=== PATIENT | male | born 1970 ===

== ENCOUNTER 2016-10-16 12:58 | Inpatient (IN) | payer BC ==
[2016-10-16] MEDS ORDERED: Sodium Chloride 0.9% 1,000 ML IV STA (13:54)
--- NOTE | 2016-10-16 14:00 | CP.PCM.CON ---
History of Present Illness - History of Present Illness History of Present Illness: 46 y/o male with pmh of DM presents to the ED today w/ infection of right foot. Per patient he was sent to ED today after being seen by Dr. Page in the office. Pt was told he had an infection of the right great toe. Says he has had a problem w/ this toe x 1 month. Has been walking with regular sneakers. Denies n/v/c/sob/cp however does complain of some subjective fevers at night for the past few days. Says he had his right 2nd digit amputated in 2013 for a similar problem. Denies any other problems at this time. Review of Systems - Review of Systems Review of Systems: All systems reviewed and found to be negative except HPI findings above Past Patient History - Tetanus Immunizations Tetanus Immunization: Unknown - Past Medical History & Family History Past Medical History?: Yes - Past Social History Smoking Status: Former Smoker - CARDIAC Hx Cardiac Disorders: No - PULMONARY Hx Respiratory Disorders: No - NEUROLOGICAL Hx Neurological Disorder: No - RENAL Hx Chronic Kidney Disease: No - ENDOCRINE/METABOLIC Hx Diabetes Mellitus Type 2: Yes - MUSCULOSKELETAL/RHEUMATOLOGICAL Hx Falls: No - PSYCHIATRIC Hx Substance Use: No - SURGICAL HISTORY Hx Surgeries: No Meds Allergies/Adverse Reactions: Allergies Allergy/AdvReac Type Severity Reaction Status Date / Time No Known Allergies Allergy Verified 10/16/16 13:11 - Medications Medications: Current Medications Sodium Chloride (Sodium Chloride 0.9%) 1,000 mls @ 250 mls/hr IV .Q4H STA Stop: 10/16/16 17:53 Physical Exam - Constitutional Appears: Non-toxic, No Acute Distress - Extremities Exam Extremities exam: Negative for: calf tenderness Additional comments: RLE exam: Dressing to right foot appears c/d/i, capillary refill < 3 sec to digits 3-5 - Neurological Exam Neurological exam: Alert, CN II-XII Intact, Oriented x3 - Psychiatric Exam Psychiatric exam: Normal Affect, Normal Mood Results - Vital Signs Recent Vital Signs: Last Vital Signs Temp 97 F L 10/16/16 13:11 Pulse 74 10/16/16 13:11 Resp 18 10/16/16 13:11 BP 150/76 10/16/16 13:11 Pulse Ox 99 10/16/16 13:11 - Labs Result Diagrams: 10/16/16 14:40 10/16/16 14:40 Assessment & Plan - Assessment and Plan (Free Text) Assessment: 46 yo diabetic male patient seen in ED for diabetic foot infection right hallux Plan: -Pt S&E in ED -Plan discussed w/ Dr. Page -Chart, labs, vitals reviewed: afebrile, no leukocytosis -EKG, CXR ordered -Pt will require emergency right hallux amputation today 10/16 w/ Dr. Page (on add-on schedule) -Addressed all questions and concerns with patient -D/w family medicine team who will accept the admission -Will require medical clearance prior to OR today -NPO -Foot x-ray done in office -will follow
--- NOTE | 2016-10-16 14:19 | ED PDOC ---
Lower Extremity Pain/Injury Time Seen by Provider: 10/16/16 13:25 Chief Complaint (Nursing): Lower Extremity Problem/Injury Chief Complaint (Provider): Right great toe infection History Per: Patient, Family History/Exam Limitations: no limitations Onset/Duration Of Symptoms: Days Current Symptoms Are (Timing): Still Present Severity: Mild Additional Complaint(s): Pt was seen by Dr. Page today. Pt has infection of the right great toe. No fever/chills. Pt states it has been going on for awhile and he sees Dr. Page regularly. Pt states Dr. Page told him he needs emergency surgery for the toe and to not have the dressing removed. Pt denies other complaints. Pt states 2nd toe on the right was amputated a few years ago. Past Medical History Reviewed: Historical Data, Nursing Documentation, Vital Signs Vital Signs: Last Vital Signs Temp 97 F L 10/16/16 13:11 Pulse 74 10/16/16 13:11 Resp 18 10/16/16 13:11 BP 150/76 10/16/16 13:11 Pulse Ox 99 10/16/16 13:11 - Medical History PMH: Diabetes Denies: Chronic Kidney Disease - Surgical History Surgical History: No Surg Hx - Family History Family History: States: No Known Family Hx - Living Arrangements Living Arrangements: With Family - Social History Current smoker - smoking cessation education provided: No - Home Medications Home Medications: Ambulatory Orders Medication Instructions Recorded Cyanocobalamin [Vitamin B12 1000 1 tab PO DAILY 10/16/16 mcg Tab] Sitagliptin Phos/Metformin HCl 1 tab PO BID 10/16/16 [Janumet 50-1,000 mg Tablet] - Allergies Allergies/Adverse Reactions: Allergies Allergy/AdvReac Type Severity Reaction Status Date / Time No Known Allergies Allergy Verified 10/16/16 13:11 Review of Systems ROS Statement: Except As Marked, All Systems Reviewed And Found Negative Constitutional: Negative for: Fever, Chills Skin: Positive for: Other Physical Exam - Reviewed Nursing Documentation Reviewed: Yes Vital Signs Reviewed: Yes - Physical Exam Appears: Positive for: Well, Non-toxic, No Acute Distress Head Exam: Positive for: ATRAUMATIC, NORMAL INSPECTION, NORMOCEPHALIC Skin: Positive for: Normal Color, Warm, DRY Eye Exam: Positive for: Normal appearance ENT: Positive for: Normal ENT Inspection Neck: Positive for: Normal, Painless ROM Cardiovascular/Chest: Positive for: Regular Rate, Rhythm Respiratory: Positive for: CNT, Normal Breath Sounds Gastrointestinal/Abdominal: Positive for: Normal Exam, Bowel Sounds, Soft Back: Positive for: Normal Inspection Extremity: Positive for: Normal ROM, Other (Right great toe with dressing ) Neurologic/Psych: Positive for: Alert, Oriented - Laboratory Results Result Diagrams: 10/16/16 14:40 10/16/16 14:40 - ECG O2 Sat by Pulse Oximetry: 99 Pulse Ox Interpretation: Normal Disposition - Clinical Impression Clinical Impression: Diabetic foot infection - Patient ED Disposition Is Patient to be Admitted: Yes - Disposition Disposition Time: 15:48 Condition: STABLE - Pt Status Changed To: Hospital Disposition Of: Inpatient - Admit Certification Admit to Inpatient:: After my assessment, the patient will require hospitalization for at least two midnights. This is because of the severity of symptoms shown, intensity of services needed, and/or the medical risk in this patient being treated as an outpatient. - POA Present On Arrival: None
--- NOTE | 2016-10-16 14:40 | RAD ---
HISTORY: admission, surgery COMPARISON: Comparison is made to the previous study dated 03/29/2014 FINDINGS: LUNGS: No active pulmonary disease. PLEURA: No significant pleural effusion identified, no pneumothorax apparent. CARDIOVASCULAR: Normal. OSSEOUS STRUCTURES: No significant abnormalities. VISUALIZED UPPER ABDOMEN: Normal. OTHER FINDINGS: None. IMPRESSION: No active disease.
[2016-10-16 14:49] LABS: BASO % 0.6 % (0.0-2.0); EOS # 0.1 K/uL (0.0-0.7); EOS % 1.5 % (0.0-4.0); HEMATOCRIT 34.6 % (35.0-51.0); LYMPH # 0.9 K/uL (1.0-4.3); LYMPH % 18.2 % (20.0-40.0); MEAN CELL VOLUME 79.5 fl (80.0-94.0); MEAN CORPUSCULAR HEMOGLOBIN 26.2 pg (27.0-31.0); MEAN CORPUSCULAR HGB CONC 32.9 g/dL (33.0-37.0); MEAN PLATELET VOLUME 12.1 fl (7.2-11.7); MONO # 0.6 K/uL (0.0-0.8); MONO % 11.7 % (0.0-10.0); NEUT # 3.4 K/uL (1.8-7.0); RED CELL DISTRIBUTION WIDTH 14.2 % (11.5-14.5); WHITE BLOOD COUNT 4.9 K/uL (4.8-10.8)
[2016-10-16 14:59] LABS: ALB/GLOB RATIO 1.1 (1.0-2.1); BLOOD UREA NITROGEN 15 mg/dl (9-20); CALCIUM 9.8 mg/dL (8.4-10.2); CARBON DIOXIDE 28 mmol/L (22-30); CHLORIDE 102 mmol/L (98-107); GFR AFRICAN-AMERICAN > 60; GLUCOSE,RANDOM 203 mg/dL (75-110); POTASSIUM 4.2 MMOL/L (3.6-5.0); SODIUM 144 mmol/l (132-148); TOTAL PROTEIN 6.9 G/DL (6.3-8.2)
[2016-10-16] MEDS ORDERED: Glucagon Recombinant 1 mg Inj IM PRN (14:59)
[2016-10-16] MEDS ORDERED: Dextrose 50% SYRINGE Inj (50 ml) IV PRN (14:59)
--- NOTE | 2016-10-16 14:59 | CP.PCM.HP ---
History of Present Illness - History of Present Illness History of Present Illness: 46 y/o male with a PMHx remarkable for NIDDM2 controlled with Elvis- presented to the ED today complaining of right toe pain. He reports he hit his toe against a chair 1 month ago. Originally he felt pain, but denied any trauma to the area. The pain and edema gradually progressed over the course of the month and the pt ignored it. It has now broken up with an area of ulceration on the medial aspect of his right 1st digit. He reports there is a pulsating like pain upon ambulation but it is relieved at rest. No other complaints. Denies fever/chills, headaches, changes in vision, CP/SOB/Palpitations, N/V/D/C, urinary symptoms, numbness/tingling. ROS: reviewed 12 points, found to be negative PMD: Dr. Castro ([employer] [place], [place]) PMHx: NIDDM2 (controlled), last HbA1C was 7.0% last week as per pt Meds: Elvis- ALL: NKDA PsurgHx: right foot 2nd digit amputation PHospHx: only for right 2nd digit amputation SocialHx: denies ETOH/Tobacco/Drug use FamilyHx: mother passed at age 80 due to [place], sibling with uncontrolled DM ED Course: Vitals: T: 97.0F, BP: 150/76, HR: 74, RR: 18, O2: 99% on RA CBC: wnl CMP: glucose 203, Cr: 1.0, otherwise unremarkable EKG CXR: no active disease Admitted to Med/Surg Present on Admission - Present on Admission Any Indicators Present on Admission: No Review of Systems - Review of Systems All systems: reviewed and no additional remarkable complaints except (as per HPI ) Past Patient History - Tetanus Immunizations Tetanus Immunization: Unknown - Past Medical History & Family History Past Medical History?: Yes - Past Social History Smoking Status: Former Smoker Alcohol: None Drugs: Denies Home Situation {Lives}: With Family - CARDIAC Hx Cardiac Disorders: No - PULMONARY Hx Respiratory Disorders: No - NEUROLOGICAL Hx Neurological Disorder: No - RENAL Hx Chronic Kidney Disease: No - ENDOCRINE/METABOLIC Hx Diabetes Mellitus Type 2: Yes - MUSCULOSKELETAL/RHEUMATOLOGICAL Hx Falls: No - PSYCHIATRIC Hx Substance Use: No - SURGICAL HISTORY Hx Surgeries: No Meds Allergies/Adverse Reactions: Allergies Allergy/AdvReac Type Severity Reaction Status Date / Time No Known Allergies Allergy Verified 10/16/16 13:11 Physical Exam - Constitutional Appears: Well, Non-toxic, No Acute Distress - Head Exam Head Exam: ATRAUMATIC, NORMOCEPHALIC - Eye Exam Eye Exam: EOMI. absent: Conjunctival injection, Periorbital swelling, Scleral icterus Pupil Exam: Fixed - ENT Exam ENT Exam: Mucous Membranes Moist - Neck Exam Neck exam: Positive for: Full Rom, Normal Inspection. Negative for: Lymphadenopathy, Tenderness - Respiratory Exam Respiratory Exam: Clear to Auscultation Bilateral, NORMAL BREATHING PATTERN. absent: Accessory Muscle Use, Rales, Rhonchi, Wheezes, Respiratory Distress - Cardiovascular Exam Cardiovascular Exam: REGULAR RHYTHM, RRR, +S1, +S2. absent: Bradycardia, Tachycardia, JVD, Rubs, Systolic Murmur - GI/Abdominal Exam GI & Abdominal Exam: Normal Bowel Sounds, Soft. absent: Tenderness - Extremities Exam Extremities exam: Positive for: full ROM, normal inspection, pedal edema (right LE nonpitting pedal edema secondary to trauma/infection of right 1st digit), pedal pulses present (1+ right DP (secondary to edema), 2+ left DP). Negative for: calf tenderness, tenderness - Neurological Exam Neurological exam: Alert, CN II-XII Intact, Oriented x3 - Psychiatric Exam Psychiatric exam: Normal Affect, Normal Mood - Skin Skin Exam: Dry, Intact, Normal Color, Warm Results - Vital Signs Recent Vital Signs: Last Vital Signs Temp 97 F L 10/16/16 13:11 Pulse 74 10/16/16 13:11 Resp 18 10/16/16 13:11 BP 150/76 10/16/16 13:11 Pulse Ox 99 10/16/16 14:20 - Labs Result Diagrams: 10/16/16 14:40 10/16/16 14:40 Labs: Laboratory Results - last 24 hr 10/16/16 14:40 WBC 4.9 RBC 4.35 L Hgb 11.4 L Hct 34.6 L MCV 79.5 L MCH 26.2 L MCHC 32.9 L RDW 14.2 Plt Count 124 L MPV 12.1 H Neut % (Auto) 68.0 Lymph % (Auto) 18.2 L [place] % (Auto) 11.7 H Eos % (Auto) 1.5 Baso % (Auto) 0.6 Neut # 3.4 Lymph # 0.9 L [place] # 0.6 Eos # 0.1 Baso # 0.0 Assessment & Plan (1) Diabetic infection of right foot Assessment and Plan: -podiatry consulted -for OR today for right great toe amputation -EKG: NSR, 64 BPM, no Q-waves, no ST elevations, possible left atrial enlargement, LVH -CXR: no active disease -CBC: 4.9>11.4/34.6<124 -CMP: Cr: 1.0, BS: 203, otherwise WNL -PT/INR/APTT: 11.2/1.08/30.9 respectively -medically optimized for surgery today Status: Acute (2) Non-insulin dependent type 2 diabetes mellitus Assessment and Plan: -last HbA1C: 7.0% as per pt -accuchecks -continue Januvia 50 BID -Insulin Coverage scale, low dose. Status: Chronic (3) Essential (primary) hypertension Assessment and Plan: -possible Hx of essential HTN as per Pharmacy. Reports pt was supposed to fill script for Losartan but never did. -will monitor BPs and intervene accordingly Status: Chronic (4) DVT prophylaxis Assessment and Plan: SCDs Status: Acute
[2016-10-16 15:00] LABS: ALKALINE PHOSPHATASE 131 U/L (38-126); ALT/SGPT 24 U/L (21-72); AST/SGOT 17 U/L (17-59); BILIRUBIN,TOTAL 0.7 mg/dl (0.2-1.3)
[2016-10-16 15:34] LABS: PARTIAL THROMBOPLASTIN TIME 30.9 SECONDS (23.3-32.5)
[2016-10-16] MEDS ORDERED: Bupivacaine 0.5% Inj(30mL) ONE (17:42)
[2016-10-16] MEDS ORDERED: Lidocaine 1% Inj (20ml) ONE ×2 (17:42→18:30)
[2016-10-16] MEDS ORDERED: Midazolam 2 MG/2 ML VIAL ONE (18:02)
[2016-10-16] MEDS ORDERED: Pneumococcal 23-Valent Vaccine IM ONE (18:33)
[2016-10-16] MEDS: Insulin Regular 100 units/ml SC SCH ×2 (18:36→21:57)
[2016-10-16] MEDS: Piperacillin/Tazobact 3.375 GM in Sodium Chloride 0.9% 100 ML IVPB SCH ×2 (18:37→23:50)
[2016-10-16] MEDS: Sodium Chloride 0.9% 1,000 ML IV SCH (18:38)
[2016-10-16] MEDS ORDERED: Absorbable Gelatin Sponge Size 12-7 ONE (18:44)
[2016-10-16] MEDS ORDERED: Thrombin Topical 5,000 IU Spray Kit ONE (18:44)
[2016-10-16] MEDS ORDERED: Lactated Ringer's 1,000 ML IV ONE (18:55)
[2016-10-16] MEDS ORDERED: HEMOSTATIC MATRIX 10 ML DIS.NEEDLE TOP ONE (19:09)
--- NOTE | 2016-10-16 19:31 | PCM.SURG1 ---
Surgeon's Initial Post Op Note - Surgeon's Notes Surgeon: Dr. Page [employer] Supervisor: Dr. Rema Cisneros, Dr. 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
[2016-10-16] MEDS ORDERED: Oxycodone/Acetaminophen 5/325 mg Tab PO PRN (19:34)
[2016-10-16 20:14] LABS: HEMATOCRIT 29.7 % (35.0-51.0)
[2016-10-17] MEDS: Oxycodone/Acetaminophen 5/325 mg Tab PO PRN ×3 (01:28→23:16)
[2016-10-17] MEDS: Piperacillin/Tazobact 3.375 GM in Sodium Chloride 0.9% 100 ML IVPB SCH ×4 (05:09→23:26)
[2016-10-17] MEDS: Insulin Regular 100 units/ml SC SCH ×4 (06:49→21:43)
--- NOTE | 2016-10-17 06:49 | CP.PCM.PN ---
Subjective - Date & Time of Evaluation Date of Evaluation: 10/17/16 Time of Evaluation: 06:45 - Subjective Subjective: 46 y/o male with pmh of DM POD #1 right hallux amputation w/ partial metatarsal resection. Both patient and nursing deny any acute events overnight. Pt admits to a small amount of pain to the foot, denies numbness or tingling. Denies f/n/v /c/sob/cp. Denies any other problems. Reports eating well. Denies putting any weight to the foot since surgery. Objective - Vital Signs/Intake and Output Vital Signs (last 24 hours): Temp Pulse Resp BP Pulse Ox 98.4 F 66 20 131/78 98 10/17/16 05:00 10/17/16 05:00 10/17/16 05:00 10/17/16 05:00 10/17/16 05:00 Intake and Output: 10/16/16 10/17/16 18:59 06:59 Intake Total 800 100 Balance 800 100 - Medications Medications: Current Medications Acetaminophen (Tylenol 325mg Tab) 650 mg PO Q4 PRN PRN Reason: Pain, Mild (1-3) Cyanocobalamin (Vitamin B12 1000 Mcg Tab) 1,000 mcg PO DAILY [facility] Dextrose (Dextrose 50% Inj) 0 ml IV STAT PRN; Protocol PRN Reason: Hyglycemia Protocol Dextrose (Glutose 15) 0 gm PO ONCE PRN; Protocol PRN Reason: Hypoglycemia Protocol Glucagon (Glucagen Diagnostic Kit) 0 mg IM STAT PRN; Protocol PRN Reason: Hypoglycemia Protocol Vancomycin HCl 1 gm/ Sodium (Chloride) 250 mls @ 166.667 mls/hr IVPB Q12 [facility] Last Admin: 10/16/16 21:52 Dose: 166.667 mls/hr Piperacillin Sod/Tazobactam (Sod 3.375 gm/ Sodium Chloride) 100 mls @ 100 mls/ hr IVPB Q6 [facility] Last Admin: 10/17/16 05:09 Dose: 100 mls/hr Sodium Chloride (Sodium Chloride 0.9%) 1,000 mls @ 120 mls/hr IV .Q8H20M [facility] Stop: 10/17/16 17:03 Last Admin: 10/16/16 18:38 Dose: Not Given Insulin Human Regular (Humulin R) 0 units SC ACHS JELENA PRN Reason: Protocol Last Admin: 10/17/16 06:49 Dose: Not Given Oxycodone/Acetaminophen (Percocet 5/325 Mg Tab) 1 tab PO Q4 PRN PRN Reason: Pain, moderate (4-7) Stop: 10/19/16 19:35 Oxycodone/Acetaminophen (Percocet 5/325 Mg Tab) 2 tab PO Q4 PRN PRN Reason: Pain, severe (8-10) Stop: 10/19/16 19:35 Last Admin: 10/17/16 05:52 Dose: 2 tab Pneumococcal Polyvalent Vaccine (Pneumovax 23 Vaccine) 0.5 ml IM .ONCE ONE Stop: 10/17/16 09:01 Sitagliptin Phosphate (Januvia) 50 mg PO BID JELENA - Labs Labs: 10/16/16 19:47 PT 11.2 SECONDS (9.6-11.2) 10/16/16 14:40 INR 1.08 (0.92-1.08) 10/16/16 14:40 APTT 30.9 SECONDS (23.3-32.5) 10/16/16 14:40 - Constitutional Appears: Well, Non-toxic, No Acute Distress - Extremities Exam Extremities Exam: absent: Calf Tenderness Additional comments: Dressing to right foot appears c/d/i w/ no strikethrough seen - Neurological Exam Neurological Exam: Alert, Awake, Oriented x3 - Psychiatric Exam Psychiatric exam: Normal Affect, Normal Mood Assessment and Plan - Assessment and Plan (Free Text) Assessment: 46 yo diabetic male pt POD #1 right hallux and partial metatarsal resection. Plan: -Pt S&E at bedside -Plan discussed w/ attending Dr. Page -All questions and concerns addressed with patient -Chart, labs, vitals reviewed: afebrile, wbc 4.2 today, H/H 9.3/27.0 -ESR 78 -Dressing to be left intact to right foot -NWB for now -Awaiting PT eval -SCD's for now -IV abx (vanc and zosyn) per family medicine team -Stable per podiatry -Awaiting pathology bone culture -Awaiting intra-op wound culture -Will continue to follow
[2016-10-17 06:51] LABS: BASO % 0.6 % (0.0-2.0); EOS # 0.1 K/uL (0.0-0.7); EOS % 2.9 % (0.0-4.0); LYMPH % 24.1 % (20.0-40.0); MEAN CELL VOLUME 78.2 fl (80.0-94.0); MEAN CORPUSCULAR HEMOGLOBIN 26.9 pg (27.0-31.0); MEAN CORPUSCULAR HGB CONC 34.3 g/dL (33.0-37.0); MONO # 0.4 K/uL (0.0-0.8); MONO % 10.5 % (0.0-10.0); NEUT # 2.6 K/uL (1.8-7.0); NEUT % 61.9 % (50.0-75.0); NRBC % 0.1 % (0.0-0.0); RED CELL DISTRIBUTION WIDTH 13.6 % (11.5-14.5); WHITE BLOOD COUNT 4.2 K/uL (4.8-10.8)
[2016-10-17 06:59] LABS: BLOOD UREA NITROGEN 16 mg/dl (9-20); CARBON DIOXIDE 28 mmol/L (22-30); CHLORIDE 104 mmol/L (98-107); GFR AFRICAN-AMERICAN > 60; GLUCOSE,RANDOM 132 mg/dL (75-110); POTASSIUM 4.5 MMOL/L (3.6-5.0); SODIUM 142 mmol/l (132-148)
--- NOTE | 2016-10-17 08:08 | CP.PCM.PN ---
Subjective - Date & Time of Evaluation Date of Evaluation: 10/17/16 Time of Evaluation: 08:08 - Subjective Subjective: pt seen and examined at bedside. No acute events overnight. S/P right hallux amputation POD#1. Tolerated procedure well without any complications. Reports right foot pain that is controlled with medications. Reports sleeping well overnight. Tolerating incentive spirometry. No new medical complaints. Denies fever/chills, headaches, visual disturbances, CP/SOB/palpitations, N/V/D/C, numbness/tingling. Objective - Vital Signs/Intake and Output Vital Signs (last 24 hours): Temp Pulse Resp BP Pulse Ox 98.4 F 63 20 123/74 98 10/17/16 08:02 10/17/16 08:02 10/17/16 08:02 10/17/16 08:02 10/17/16 08:02 Intake and Output: 10/17/16 10/17/16 06:59 18:59 Intake Total 100 Balance 100 - Medications Medications: Current Medications Acetaminophen (Tylenol 325mg Tab) 650 mg PO Q4 PRN PRN Reason: Pain, Mild (1-3) Cyanocobalamin (Vitamin B12 1000 Mcg Tab) 1,000 mcg PO DAILY [facility] Dextrose (Dextrose 50% Inj) 0 ml IV STAT PRN; Protocol PRN Reason: Hyglycemia Protocol Dextrose (Glutose 15) 0 gm PO ONCE PRN; Protocol PRN Reason: Hypoglycemia Protocol Glucagon (Glucagen Diagnostic Kit) 0 mg IM STAT PRN; Protocol PRN Reason: Hypoglycemia Protocol Vancomycin HCl 1 gm/ Sodium (Chloride) 250 mls @ 166.667 mls/hr IVPB Q12 [facility] Last Admin: 10/16/16 21:52 Dose: 166.667 mls/hr Piperacillin Sod/Tazobactam (Sod 3.375 gm/ Sodium Chloride) 100 mls @ 100 mls/ hr IVPB Q6 [facility] Last Admin: 10/17/16 05:09 Dose: 100 mls/hr Sodium Chloride (Sodium Chloride 0.9%) 1,000 mls @ 120 mls/hr IV .Q8H20M [facility] Stop: 10/17/16 17:03 Last Admin: 10/16/16 18:38 Dose: Not Given Insulin Human Regular (Humulin R) 0 units SC ACHS JELENA PRN Reason: Protocol Last Admin: 10/17/16 06:49 Dose: Not Given Oxycodone/Acetaminophen (Percocet 5/325 Mg Tab) 1 tab PO Q4 PRN PRN Reason: Pain, moderate (4-7) Stop: 10/19/16 19:35 Oxycodone/Acetaminophen (Percocet 5/325 Mg Tab) 2 tab PO Q4 PRN PRN Reason: Pain, severe (8-10) Stop: 10/19/16 19:35 Last Admin: 10/17/16 05:52 Dose: 2 tab Pneumococcal Polyvalent Vaccine (Pneumovax 23 Vaccine) 0.5 ml IM .ONCE ONE Stop: 10/17/16 09:01 Sitagliptin Phosphate (Januvia) 50 mg PO BID JELENA - Labs Labs: 10/17/16 05:45 10/17/16 05:45 PT 11.2 SECONDS (9.6-11.2) 10/16/16 14:40 INR 1.08 (0.92-1.08) 10/16/16 14:40 APTT 30.9 SECONDS (23.3-32.5) 10/16/16 14:40 - Constitutional Appears: Well, Non-toxic, No Acute Distress - Eye Exam Eye Exam: EOMI Pupil Exam: PERRL - ENT Exam ENT Exam: Mucous Membranes Moist - Respiratory Exam Respiratory Exam: Clear to Ausculation Bilateral, NORMAL BREATHING PATTERN. absent: Rales, Rhonchi, Wheezes - Cardiovascular Exam Cardiovascular Exam: REGULAR RHYTHM, RRR, +S1, +S2. absent: Tachycardia, JVD, Rubs, Murmur - GI/Abdominal Exam GI & Abdominal Exam: Soft, Normal Bowel Sounds. absent: Tenderness - Extremities Exam Extremities Exam: Joint Swelling (right foot edema s/p surgery). absent: Calf Tenderness, Normal Inspection (right foot wrapped and bandaged) - Neurological Exam Neurological Exam: Alert, Awake, CN II-XII Intact, Oriented x3 - Psychiatric Exam Psychiatric exam: Normal Affect, Normal Mood - Skin Skin Exam: Dry, Intact, Normal Color, Warm Assessment and Plan (1) Diabetic infection of right foot Assessment & Plan: Right foot hallux amputation with 1st metatarsal resection POD #1 Vancomycin IV 1gm Q12 Abx day 2 Zosyn 3.375gm IV Q6 Abx day 2 Percocet 1-2 tabs Q4 PRN Tylenol 650mg Wound Culture: pending ESR: 78 ID Consult appreciated PT Eval/Tx Vanco Trough Tomorrow AM Status: Acute (2) Non-insulin dependent type 2 diabetes mellitus Assessment & Plan: -last HbA1C: 7.0% as per pt -accuchecks -continue Januvia 50 BID -Insulin Coverage scale, low dose. Status: Chronic (3) Essential (primary) hypertension Assessment & Plan: continue monitoring BPs, will intervene accordingly. Status: Chronic (4) DVT prophylaxis Assessment & Plan: SCDs Lovenox 40mg SC QD Status: Acute
--- NOTE | 2016-10-17 08:47 | CARD ---
APPROVED REPORT EKG Measurement Heart [id number] CT [id number] <Conclusion> Normal sinus rhythm Possible Left atrial enlargement Left ventricular hypertrophy Nonspecific T wave abnormality Abnormal ECG
[2016-10-17] MEDS ORDERED: Pneumococcal 23-Valent Vaccine IM ONE (09:00)
--- NOTE | 2016-10-17 12:23 | RAD ---
PROCEDURE: Right Foot Radiographs. HISTORY: s/p right foot surgery COMPARISON: Disease preoperative study 03/29/2014. FINDINGS: BONES: Expected postoperative changes following resection of the 1st metatarsal digit and 2nd digit. Surgical packing/gauze identified. JOINTS: Normal. SOFT TISSUES: Expected postoperative soft tissue swelling. No visualized/radiopaque foreign body OTHER FINDINGS: None. IMPRESSION: Satisfactory postoperative status.
[2016-10-17 13:09] VITALS: BMI 27.3
[2016-10-17] MEDS: Enoxaparin 40 mg Syringe SC SCH (14:47)
[2016-10-17] MEDS: Sodium Chloride 0.9% 1,000 ML IV SCH ×2 (15:45→15:46)
--- NOTE | 2016-10-17 19:06 | CP.PCM.CON ---
History of Present Illness - History of Present Illness History of Present Illness: 46 y/o male presented to the ED today complaining of right toe pain. He reports he hit his toe against a chair 1 month ago. went for hallux amp today ID [id number] hx prev amp same foot r/o OM ROS: reviewed 12 points, found to be negative PMHx: NIDDM2 (controlled), last HbA1C was 7.0% last wk Meds: Elvis-met ALL: NKDA PsurgHx: right foot 2nd digit amputation PHospHx: only for right 2nd digit amputation SocialHx: denies ETOH/Tobacco/Drug use FamilyHx: mother passed at age 80 due to [place], sibling with uncontrolled DM Review of Systems - Constitutional Constitutional: As Per HPI - EENT Eyes: absent: As Per HPI, Blind Spots, Blurred Vision, Change in Vision, Decreased Night Vision, Diplopia, Discharge, Dry Eye, Exophthalmos, Floaters, Irritation, Itchy Eyes, Loss of Peripheral Vision, Pain, Photophobia, Requires Corrective Lenses, Sees Flashes, Spots in Vision, Tunnel Vision, Other Visual Disturbances, Loss of Vision, Other Ears: absent: As Per HPI, Decreased Hearing, Ear Discharge, Ear Pain, Tinnitus, Abnormal Hearing, Disequilibrium, Dizziness, Other Nose/Mouth/Throat: absent: As Per HPI, Epistaxis, Nasal Congestion, Nasal Discharge, Nasal Obstruction, Nasal Trauma, Nose Pain, Post Nasal Drip, Sinus Pain, Sinus Pressure, Bleeding Gums, Change in Voice, Dental Pain, Dry Mouth, Dysphagia, Halitosis, Hoarsness, Lip Swelling, Mouth Lesions, Mouth Pain, Odynophagia, Sore Throat, Throat Swelling, Tongue Swelling, Facial Pain, Neck Pain, Neck Mass, Other - Cardiovascular Cardiovascular: absent: As Per HPI, Acrocyanosis, Chest Pain, Chest Pain at Rest , Chest Pain with Activity, Claudication, Diaphoresis, Dyspnea, Dyspnea on Exertion, Edema, Irregular Heart Rhythm, Pain Radiating to Arm/Neck/Jaw, Leg Edema, Leg Ulcers, Lightheadedness, Orthopnea, Palpitations, Paroxysmal Nocturnal Dyspnea, Pedal Edema, Radiating Pain, Rapid Heart Rate, Slow Heart Rate, Syncope, Other - Respiratory Respiratory: absent: As Per HPI, Cough, Dyspnea, Hemoptysis, Dyspnea on Exertion , Wheezing, Snoring, Stridor, Pain on Inspiration, Chest Congestion, Excessive Mucous Production, Change in Mucous Color, Pain with Coughing, Other - Gastrointestinal Gastrointestinal: absent: As Per HPI, Abdominal Pain, Belching, Bloating, Change in Bowel Habits, Change in Stool Character, Coffee Ground Emesis, Constipation, Cramping, Diarrhea, Dyspepsia, Dysphagia, Early Satiety, Excessive Flatus, Fecal Incontinence, Heartburn, Hematemesis, Hematochezia, Loose Stools, Melena, Nausea, Odynophagia, Temesmus, Vomiting, Other - Genitourinary Genitourinary: absent: As Per HPI, Change in Urinary Stream, Difficulty Urinating, Dysuria, Flank Pain, Hematuria, Pyuria, Nocturia, Urinary Incontinence, Urinary Frequency, Urinary Hesitance, Urinary Urgency, Voiding Freq/Small Amts, Freq UTI, Hx Renal/Bladder Calculi, Hx /Renal Surgery, Bladder Distension, Other - Musculoskeletal Musculoskeletal: absent: As Per HPI, Abnormal Gait, Arthralgias, Atrophy, Back Pain, Deformity, Joint Swelling, Limited Range of Motion, Loss of Height, Muscle Cramps, Muscle Weakness, Myalgias, Neck Pain, Numbness, Radiating Pain into Limb, Stiffness, Tingling, Other - Integumentary Integumentary: As Per HPI, Skin Pain, Wounds - Neurological Neurological: As Per HPI - Psychiatric Psychiatric: absent: As Per HPI, Abnormal Sleep Pattern, Anhedonia, Anxiety, Auditory Hallucinations, Behavioral Changes, Change in Appetite, Change in Libido, Confusion, Depression, Difficulty Concentrating, Hallucinations, Homicidal Ideation, Hopelessness, Irritability, Memory Loss, Mood Swings, Panic Attacks, Paranoia, Suicidal Ideation, Visual Hallucinations, Tactile Hallucinations, Other - Endocrine Endocrine: absent: As Per HPI, Change in Body Appearance, Change in Libido, Cold Intolorance, Deepening of Voice, Excessive Sweating, Fatigue, Flushing, Heat Intolorance, Increase in Ring/Shoe/Hat Size, Palpitations, Polydipsia, Polyphagia, Polyuria, Other - Hematologic/Lymphatic Hematologic: absent: As Per HPI, Easy Bleeding, Easy Bruising, Lymphadenopathy, Other Past Patient History - Tetanus Immunizations Tetanus Immunization: Unknown - Past Medical History & Family History Past Medical History?: Yes - Past Social History Smoking Status: Never Smoked - CARDIAC Hx Cardiac Disorders: No - PULMONARY Hx Respiratory Disorders: No - NEUROLOGICAL Hx Neurological Disorder: No - RENAL Hx Chronic Kidney Disease: No - ENDOCRINE/METABOLIC Hx Diabetes Mellitus Type 2: Yes - MUSCULOSKELETAL/RHEUMATOLOGICAL Hx Falls: No - PSYCHIATRIC Hx Substance Use: No - SURGICAL HISTORY Hx Surgeries: No Meds Allergies/Adverse Reactions: Allergies Allergy/AdvReac Type Severity Reaction Status Date / Time No Known Allergies Allergy Verified 10/16/16 13:11 - Medications Medications: Current Medications Acetaminophen (Tylenol 325mg Tab) 650 mg PO Q4 PRN PRN Reason: Pain, Mild (1-3) Cyanocobalamin (Vitamin B12 1000 Mcg Tab) 1,000 mcg PO DAILY [facility] Last Admin: 10/17/16 09:17 Dose: 1,000 mcg Dextrose (Dextrose 50% Inj) 0 ml IV STAT PRN; Protocol PRN Reason: Hyglycemia Protocol Dextrose (Glutose 15) 0 gm PO ONCE PRN; Protocol PRN Reason: Hypoglycemia Protocol Enoxaparin Sodium (Lovenox) 40 mg SC DAILY [facility] PRN Reason: Protocol Last Admin: 10/17/16 14:47 Dose: 40 mg Glucagon (Glucagen Diagnostic Kit) 0 mg IM STAT PRN; Protocol PRN Reason: Hypoglycemia Protocol Vancomycin HCl 1 gm/ Sodium (Chloride) 250 mls @ 166.667 mls/hr IVPB Q12 [facility] Last Admin: 10/17/16 09:49 Dose: 166.667 mls/hr Piperacillin Sod/Tazobactam (Sod 3.375 gm/ Sodium Chloride) 100 mls @ 100 mls/ hr IVPB Q6 [facility] Last Admin: 10/17/16 15:44 Dose: 100 mls/hr Insulin Human Regular (Humulin R) 0 units SC ACHS [facility] PRN Reason: Protocol Last Admin: 10/17/16 17:26 Dose: 3 unit Oxycodone/Acetaminophen (Percocet 5/325 Mg Tab) 1 tab PO Q4 PRN PRN Reason: Pain, moderate (4-7) Stop: 10/19/16 19:35 Oxycodone/Acetaminophen (Percocet 5/325 Mg Tab) 2 tab PO Q4 PRN PRN Reason: Pain, severe (8-10) Stop: 10/19/16 19:35 Last Admin: 10/17/16 05:52 Dose: 2 tab Sitagliptin Phosphate (Januvia) 50 mg PO BID [facility] Last Admin: 10/17/16 17:26 Dose: 50 mg Physical Exam - Constitutional Appears: Non-toxic, Chronically Ill - Head Exam Head Exam: NORMOCEPHALIC - Eye Exam Eye Exam: PERRL. absent: Scleral icterus - ENT Exam ENT Exam: Mucous Membranes Dry, Normal External Ear Exam - Neck Exam Neck exam: Negative for: Lymphadenopathy - Respiratory Exam Respiratory Exam: Decreased Breath Sounds, Clear to Auscultation Bilateral - Cardiovascular Exam Cardiovascular Exam: REGULAR RHYTHM, +S1, +S2 - GI/Abdominal Exam GI & Abdominal Exam: Diminished Bowel Sounds, Soft. absent: Tenderness - Rectal Exam Rectal Exam: Deferred - Exam Exam: NORMAL INSPECTION - Extremities Exam Extremities exam: Positive for: pedal edema, tenderness, pedal pulses present. Negative for: calf tenderness, normal inspection - Back Exam Back exam: absent: CVA tenderness (L), CVA tenderness (R) - Neurological Exam Neurological exam: Alert, CN II-XII Intact, Oriented x3, Reflexes Normal - Psychiatric Exam Psychiatric exam: Normal Mood - Skin Skin Exam: Dry Results - Vital Signs Recent Vital Signs: Last Vital Signs Temp 98 F 10/17/16 16:42 Pulse 80 10/17/16 16:42 Resp 18 10/17/16 16:42 BP 157/75 H 10/17/16 16:42 Pulse Ox 100 10/17/16 16:42 - Labs Result Diagrams: 10/17/16 05:45 10/17/16 05:45 Labs: Laboratory Results - last 24 hr 10/16/16 10/16/16 10/16/16 15:25 17:52 19:16 WBC RBC Hgb Hct MCV MCH MCHC RDW Plt Count MPV Neut % (Auto) Lymph % (Auto) [place] % (Auto) Eos % (Auto) Baso % (Auto) Neut # Lymph # [place] # Eos # Baso # ESR 78 H Sodium Potassium Chloride Carbon Dioxide Anion Gap BUN Creatinine Est GFR ( Amer) Est GFR (Non-Af Amer) POC Glucose (mg/dL) 180 H 117 H Random Glucose Calcium 10/16/16 10/16/16 10/17/16 19:47 21:50 05:45 WBC 4.2 L RBC 3.45 L Hgb 9.8 L 9.3 L Hct 29.7 L 27.0 L MCV 78.2 L MCH 26.9 L MCHC 34.3 RDW 13.6 Plt Count 113 L MPV 12.0 H Neut % (Auto) 61.9 Lymph % (Auto) 24.1 [place] % (Auto) 10.5 H Eos % (Auto) 2.9 Baso % (Auto) 0.6 Neut # 2.6 Lymph # 1.0 [place] # 0.4 Eos # 0.1 Baso # 0.0 ESR Sodium Potassium Chloride Carbon Dioxide Anion Gap BUN Creatinine Est GFR ( Amer) Est GFR (Non-Af Amer) POC Glucose (mg/dL) 115 H Random Glucose Calcium 10/17/16 10/17/16 10/17/16 05:45 05:45 10:52 WBC RBC Hgb Hct MCV MCH MCHC RDW Plt Count MPV Neut % (Auto) Lymph % (Auto) [place] % (Auto) Eos % (Auto) Baso % (Auto) Neut # Lymph # [place] # Eos # Baso # ESR Sodium 142 Potassium 4.5 Chloride 104 Carbon Dioxide 28 Anion Gap 14 BUN 16 Creatinine 1.3 Est GFR ( Amer) > 60 Est GFR (Non-Af Amer) 59 POC Glucose (mg/dL) 144 H 165 H Random Glucose 132 H Calcium 9.0 10/17/16 15:27 WBC RBC Hgb Hct MCV MCH MCHC RDW Plt Count MPV Neut % (Auto) Lymph % (Auto) [place] % (Auto) Eos % (Auto) Baso % (Auto) Neut # Lymph # [place] # Eos # Baso # ESR Sodium Potassium Chloride Carbon Dioxide Anion Gap BUN Creatinine Est GFR ( Amer) Est GFR (Non-Af Amer) POC Glucose (mg/dL) 288 H Random Glucose Calcium Assessment & Plan (1) Diabetic foot infection Status: Acute (2) Amputated toe Status: Acute Priority: Medium (3) Osteomyelitis of foot Status: Acute (4) Type 2 diabetes mellitus Status: Chronic Priority: Medium - Assessment and Plan (Free Text) Plan: recuurent right foot infection hx OM 2013 with amp 2nd digit consider MRI possible long course IV rx await OR cultures
[2016-10-18] MEDS: Piperacillin/Tazobact 3.375 GM in Sodium Chloride 0.9% 100 ML IVPB SCH ×4 (04:03→21:38)
[2016-10-18] MEDS: Oxycodone/Acetaminophen 5/325 mg Tab PO PRN (04:03)
--- NOTE | 2016-10-18 06:13 | CP.PCM.PN ---
Subjective - Date & Time of Evaluation Date of Evaluation: 10/18/16 Time of Evaluation: 09:20 - Subjective Subjective: 46 y/o male with pmh of DM POD #2 right hallux amputation w/ partial metatarsal resection. Pt seen resting comfortably in bedside chair at time of visit. Denies any pain or discomfort to the foot at this time. Denies f/n/v/c/sob/cp. Says he has been ambulating with the surgical shoe to the heel only. Denies any other problems at this time. Objective - Vital Signs/Intake and Output Vital Signs (last 24 hours): Temp Pulse Resp BP Pulse Ox 98.8 F 69 18 127/67 99 10/17/16 21:14 10/17/16 21:14 10/17/16 21:14 10/17/16 21:14 10/17/16 21:14 - Medications Medications: Current Medications Acetaminophen (Tylenol 325mg Tab) 650 mg PO Q4 PRN PRN Reason: Pain, Mild (1-3) Cyanocobalamin (Vitamin B12 1000 Mcg Tab) 1,000 mcg PO DAILY [facility] Last Admin: 10/17/16 09:17 Dose: 1,000 mcg Dextrose (Dextrose 50% Inj) 0 ml IV STAT PRN; Protocol PRN Reason: Hyglycemia Protocol Dextrose (Glutose 15) 0 gm PO ONCE PRN; Protocol PRN Reason: Hypoglycemia Protocol Enoxaparin Sodium (Lovenox) 40 mg SC DAILY [facility] PRN Reason: Protocol Last Admin: 10/17/16 14:47 Dose: 40 mg Glucagon (Glucagen Diagnostic Kit) 0 mg IM STAT PRN; Protocol PRN Reason: Hypoglycemia Protocol Vancomycin HCl 1 gm/ Sodium (Chloride) 250 mls @ 166.667 mls/hr IVPB Q12 [facility] Last Admin: 10/17/16 21:46 Dose: 166.667 mls/hr Piperacillin Sod/Tazobactam (Sod 3.375 gm/ Sodium Chloride) 100 mls @ 100 mls/ hr IVPB Q6 [facility] Last Admin: 10/18/16 04:03 Dose: 100 mls/hr Insulin Human Regular (Humulin R) 0 units SC ACHS [facility] PRN Reason: Protocol Last Admin: 10/17/16 21:43 Dose: Not Given Oxycodone/Acetaminophen (Percocet 5/325 Mg Tab) 1 tab PO Q4 PRN PRN Reason: Pain, moderate (4-7) Stop: 10/19/16 19:35 Oxycodone/Acetaminophen (Percocet 5/325 Mg Tab) 2 tab PO Q4 PRN PRN Reason: Pain, severe (8-10) Stop: 10/19/16 19:35 Last Admin: 10/18/16 04:03 Dose: 2 tab Sitagliptin Phosphate (Januvia) 50 mg PO BID [facility] Last Admin: 10/17/16 17:26 Dose: 50 mg - Labs Labs: 10/17/16 05:45 10/17/16 05:45 PT 11.2 SECONDS (9.6-11.2) 10/16/16 14:40 INR 1.08 (0.92-1.08) 10/16/16 14:40 APTT 30.9 SECONDS (23.3-32.5) 10/16/16 14:40 - Constitutional Appears: Well, Non-toxic, No Acute Distress - Extremities Exam Extremities Exam: absent: Calf Tenderness Additional comments: Dressing to right foot appears c/d/i w/ no strikethrough seen, surgical shoe seen donned to foot - Neurological Exam Neurological Exam: Alert, Awake, Oriented x3 - Psychiatric Exam Psychiatric exam: Normal Affect, Normal Mood Assessment and Plan - Assessment and Plan (Free Text) Assessment: 46 yo diabetic male pt POD #2 right hallux and partial metatarsal resection. Plan: -Pt S&E at bedside -Plan discussed w/ attending Dr. Page -All questions and concerns addressed with patient -Chart, labs, vitals reviewed: afebrile, wbc 4.2 -ESR 78 -Dressing is to be left intact to the right foot. -Pt may wbat to right heel with surgical shoe -Physical therapy: recommends home -c/w IV abx (vanc/zosyn) per ID Dr. Quinonez -Awaiting pathology bone culture -Awaiting intra-op wound culture -Pt for OR tomorrow w/ Dr. Page for delayed primary closure of right foot amputation site -Discussed plan with pt. Advised pt that we need results of bone culture to determine if the bone is infected -NPO after midnight -Hold Lovenox Thursday 10/19 -Will continue to follow
[2016-10-18] MEDS: Insulin Regular 100 units/ml SC SCH ×4 (06:35→21:33)
[2016-10-18] MEDS: Enoxaparin 40 mg Syringe SC SCH (09:13)
--- NOTE | 2016-10-18 09:42 | CP.PCM.PN ---
Subjective - Date & Time of Evaluation Date of Evaluation: 10/18/16 Time of Evaluation: 07:05 - Subjective Subjective: pt seen and examined at bedside this morning, S/P Right hallux amputation POD# 2. No acute events overnight. Pt lying in bed comfortably, NAD. Reports sleeping well, and pain is controlled with medications. OOB/weight bearing with crutches. Tolerating PO intake and incentive spirometry without difficulty. No new medical complaints. Denies fever/chills, headaches, visual disturbances, CP/ SOB/Palpitations, N/V/D/C, urinary symptoms, numbness/tingling. Objective - Vital Signs/Intake and Output Vital Signs (last 24 hours): Temp Pulse Resp BP Pulse Ox 97.7 F 64 20 159/90 H 99 10/18/16 08:03 10/18/16 08:03 10/18/16 08:03 10/18/16 08:03 10/18/16 08:03 - Medications Medications: Current Medications Acetaminophen (Tylenol 325mg Tab) 650 mg PO Q4 PRN PRN Reason: Pain, Mild (1-3) Cyanocobalamin (Vitamin B12 1000 Mcg Tab) 1,000 mcg PO DAILY [facility] Last Admin: 10/18/16 09:13 Dose: 1,000 mcg Dextrose (Dextrose 50% Inj) 0 ml IV STAT PRN; Protocol PRN Reason: Hyglycemia Protocol Dextrose (Glutose 15) 0 gm PO ONCE PRN; Protocol PRN Reason: Hypoglycemia Protocol Enoxaparin Sodium (Lovenox) 40 mg SC DAILY [facility] PRN Reason: Protocol Last Admin: 10/18/16 09:13 Dose: 40 mg Glucagon (Glucagen Diagnostic Kit) 0 mg IM STAT PRN; Protocol PRN Reason: Hypoglycemia Protocol Vancomycin HCl 1 gm/ Sodium (Chloride) 250 mls @ 166.667 mls/hr IVPB Q12 [facility] Last Admin: 10/17/16 21:46 Dose: 166.667 mls/hr Piperacillin Sod/Tazobactam (Sod 3.375 gm/ Sodium Chloride) 100 mls @ 100 mls/ hr IVPB Q6 [facility] Last Admin: 10/18/16 09:13 Dose: 100 mls/hr Insulin Human Regular (Humulin R) 0 units SC ACHS [facility] PRN Reason: Protocol Last Admin: 10/18/16 06:35 Dose: 1 unit Oxycodone/Acetaminophen (Percocet 5/325 Mg Tab) 1 tab PO Q4 PRN PRN Reason: Pain, moderate (4-7) Stop: 10/19/16 19:35 Oxycodone/Acetaminophen (Percocet 5/325 Mg Tab) 2 tab PO Q4 PRN PRN Reason: Pain, severe (8-10) Stop: 10/19/16 19:35 Last Admin: 10/18/16 04:03 Dose: 2 tab Sitagliptin Phosphate (Januvia) 50 mg PO BID [facility] Last Admin: 10/18/16 09:12 Dose: 50 mg - Labs Labs: 10/17/16 05:45 10/17/16 05:45 PT 11.2 SECONDS (9.6-11.2) 10/16/16 14:40 INR 1.08 (0.92-1.08) 10/16/16 14:40 APTT 30.9 SECONDS (23.3-32.5) 10/16/16 14:40 - Constitutional Appears: Non-toxic, No Acute Distress - Eye Exam Eye Exam: EOMI Pupil Exam: PERRL - ENT Exam ENT Exam: Mucous Membranes Moist - Respiratory Exam Respiratory Exam: Clear to Ausculation Bilateral, NORMAL BREATHING PATTERN. absent: Rales, Rhonchi, Wheezes - Cardiovascular Exam Cardiovascular Exam: REGULAR RHYTHM, RRR, +S1, +S2. absent: Tachycardia, JVD, Rubs, Murmur - GI/Abdominal Exam GI & Abdominal Exam: Soft, Normal Bowel Sounds. absent: Tenderness - Extremities Exam Extremities Exam: Pedal Edema (improved left pedal edema), Tenderness (left foot bandaged). absent: Calf Tenderness - Neurological Exam Neurological Exam: Alert, Awake, CN II-XII Intact, Oriented x3 - Psychiatric Exam Psychiatric exam: Normal Affect, Normal Mood Assessment and Plan (1) Diabetic infection of right foot Assessment & Plan: Right foot hallux amputation with 1st metatarsal resection POD #2 Vancomycin IV 1gm Q12 Abx day 3 Zosyn 3.375gm IV Q6 Abx day 3 Vanco Trough: 10/18 @ 9:00am: 9.5 Percocet 1-2 tabs Q4 PRN Tylenol 650mg Wound Culture: pending ESR: 78 ID Consult appreciated: recommends following up pathology and culture before potentially starting long course of IV ABx. PT Eval/Tx -seen by Podiatry today, pt for closure of wound in the OR tomorrow. -NPO after midnight ordered -Lovenox held. Status: Acute (2) Non-insulin dependent type 2 diabetes mellitus Assessment & Plan: -last HbA1C: 7.0% as per pt -accuchecks -hold Januvia 50 BID for surgery -Insulin Coverage scale, low dose. Status: Chronic (3) Essential (primary) hypertension Assessment & Plan: continue monitoring BPs, will intervene accordingly. Status: Chronic (4) DVT prophylaxis Assessment & Plan: -Lovenox dosage to be held tomorrow before surgery -SCDs Status: Acute
[2016-10-18] MEDS: Docusate-Senna 50 mg-8.6 mg Tab PO SCH (21:38)
[2016-10-19] MEDS: Piperacillin/Tazobact 3.375 GM in Sodium Chloride 0.9% 100 ML IVPB SCH ×4 (04:06→22:26)
[2016-10-19] MEDS: Insulin Regular 100 units/ml SC SCH ×4 (06:31→22:27)
[2016-10-19] MEDS ORDERED: Propofol 10 mg/ml Inj (20 ML) ONE (07:05)
[2016-10-19] MEDS ORDERED: Midazolam 2 MG/2 ML VIAL ONE (07:06)
--- NOTE | 2016-10-19 07:12 | CP.PCM.PN ---
Subjective - Date & Time of Evaluation Date of Evaluation: 10/19/16 Time of Evaluation: 06:50 - Subjective Subjective: 46 y/o male with pmh of DM POD #3 right hallux amputation w/ partial metatarsal resection. Seen resting in bedside chair at time of visit. Denies any acute overnight events. Denies any pain or discomfort to the foot. Denies anything to eat or drink since midnight last night. Has been complaint with wb to heel only. Admits to nothing to eat or drink by mouth since midnight. Pt is requesting to go home today. Objective - Vital Signs/Intake and Output Vital Signs (last 24 hours): Temp Pulse Resp BP Pulse Ox 98.3 F 85 20 152/75 H 98 10/18/16 15:44 10/18/16 15:44 10/18/16 15:44 10/18/16 15:44 10/18/16 15:44 - Medications Medications: Current Medications Acetaminophen (Tylenol 325mg Tab) 650 mg PO Q4 PRN PRN Reason: Pain, Mild (1-3) Cyanocobalamin (Vitamin B12 1000 Mcg Tab) 1,000 mcg PO DAILY [facility] [place] Last Admin: 10/18/16 09:13 Dose: 1,000 mcg Dextrose (Dextrose 50% Inj) 0 ml IV STAT PRN; Protocol PRN Reason: Hyglycemia Protocol Dextrose (Glutose 15) 0 gm PO ONCE PRN; Protocol PRN Reason: Hypoglycemia Protocol Glucagon (Glucagen Diagnostic Kit) 0 mg IM STAT PRN; Protocol PRN Reason: Hypoglycemia Protocol Vancomycin HCl 1 gm/ Sodium (Chloride) 250 mls @ 166.667 mls/hr IVPB Q12 [facility] Last Admin: 10/18/16 20:23 Dose: 166.667 mls/hr Piperacillin Sod/Tazobactam (Sod 3.375 gm/ Sodium Chloride) 100 mls @ 100 mls/ hr IVPB Q6 [facility] Last Admin: 10/19/16 04:06 Dose: 100 mls/hr Insulin Human Regular (Humulin R) 0 units SC ACHS [facility] PRN Reason: Protocol Last Admin: 10/19/16 06:31 Dose: 1 unit Oxycodone/Acetaminophen (Percocet 5/325 Mg Tab) 1 tab PO Q4 PRN PRN Reason: Pain, moderate (4-7) Stop: 10/19/16 19:35 Oxycodone/Acetaminophen (Percocet 5/325 Mg Tab) 2 tab PO Q4 PRN PRN Reason: Pain, severe (8-10) Stop: 10/19/16 19:35 Last Admin: 10/18/16 04:03 Dose: 2 tab Senna/Docusate Sodium (Senokot S 50 Mg-8.6 Mg) 2 tab PO HS [facility] Last Admin: 10/18/16 21:38 Dose: 2 tab Sitagliptin Phosphate (Januvia) 50 mg PO BID [facility] Last Admin: 10/18/16 17:27 Dose: 50 mg - Labs Labs: 10/17/16 05:45 10/17/16 05:45 PT 11.2 SECONDS (9.6-11.2) 10/16/16 14:40 INR 1.08 (0.92-1.08) 10/16/16 14:40 APTT 30.9 SECONDS (23.3-32.5) 10/16/16 14:40 - Constitutional Appears: Well, Non-toxic, No Acute Distress - Extremities Exam Extremities Exam: absent: Calf Tenderness Additional comments: Dressing to right foot appears c/d/i w/ no strikethrough seen, surgical shoe seen donned to foot - Neurological Exam Neurological Exam: Alert, Awake, Oriented x3 - Psychiatric Exam Psychiatric exam: Normal Affect, Normal Mood Assessment and Plan - Assessment and Plan (Free Text) Assessment: 46 yo diabetic male pt POD #3 right hallux and partial metatarsal resection. Plan: Pt S&E at bedside Pt NPO status was confirmed All Pre-op testing and clearance was in the chart Pt has exhausted all conservative treatment at this time and now requires for surgical intervention Pt was explained procedure and post-operative course All pt's questions were answered to satisfaction No guarantees were made Pt understands all risks, benefits and complications of procedure To OR today for delayed primary closure of right foot wound w/ Dr. Page Discussed w/ pt we are awaiting ID recommendations for antibiotics Will follow
[2016-10-19] MEDS ORDERED: Mineral Oil Light Sterile 25 ml ONE (07:14)
[2016-10-19] MEDS ORDERED: Bupivacaine 0.5% Inj(30mL) ONE (07:14)
[2016-10-19] MEDS ORDERED: Lidocaine 1% Inj (20ml) ONE (07:14)
[2016-10-19] MEDS ORDERED: Lactated Ringer's 1,000 ML IV ONE (07:57)
--- NOTE | 2016-10-19 08:00 | CP.PCM.PN ---
Subjective - Date & Time of Evaluation Date of Evaluation: 10/19/16 Time of Evaluation: 07:00 - Subjective Subjective: pt seen and examined at bedside. Lying in bed comfortably, NAD. No acute events overnight. Pt reports feeling well overall and denies any worsening pain. Pain is controlled and he reports sleeping well through the night. Reports being compliant with NPO status. No new medical complaints. Would like to go home today if feasible. OOB/ambulating with crutches. Denies fever/chills, headaches , visual disturbances, CP/SOB/HURD, N/V/D/C, urinary symptoms, numbness/tingling , calf pain. Objective - Vital Signs/Intake and Output Vital Signs (last 24 hours): Temp Pulse Resp BP Pulse Ox 98.2 F 63 19 151/82 H 99 10/19/16 06:00 10/19/16 06:00 10/19/16 06:00 10/19/16 06:00 10/19/16 06:00 - Medications Medications: Current Medications Acetaminophen (Tylenol 325mg Tab) 650 mg PO Q4 PRN PRN Reason: Pain, Mild (1-3) Cyanocobalamin (Vitamin B12 1000 Mcg Tab) 1,000 mcg PO DAILY [facility] Last Admin: 10/18/16 09:13 Dose: 1,000 mcg Dextrose (Dextrose 50% Inj) 0 ml IV STAT PRN; Protocol PRN Reason: Hyglycemia Protocol Dextrose (Glutose 15) 0 gm PO ONCE PRN; Protocol PRN Reason: Hypoglycemia Protocol Glucagon (Glucagen Diagnostic Kit) 0 mg IM STAT PRN; Protocol PRN Reason: Hypoglycemia Protocol Vancomycin HCl 1 gm/ Sodium (Chloride) 250 mls @ 166.667 mls/hr IVPB Q12 [facility] Last Admin: 10/18/16 20:23 Dose: 166.667 mls/hr Piperacillin Sod/Tazobactam (Sod 3.375 gm/ Sodium Chloride) 100 mls @ 100 mls/ hr IVPB Q6 [facility] Last Admin: 10/19/16 04:06 Dose: 100 mls/hr Insulin Human Regular (Humulin R) 0 units SC ACHS [facility] PRN Reason: Protocol Last Admin: 10/19/16 06:31 Dose: 1 unit Oxycodone/Acetaminophen (Percocet 5/325 Mg Tab) 1 tab PO Q4 PRN PRN Reason: Pain, moderate (4-7) Stop: 10/19/16 19:35 Oxycodone/Acetaminophen (Percocet 5/325 Mg Tab) 2 tab PO Q4 PRN PRN Reason: Pain, severe (8-10) Stop: 10/19/16 19:35 Last Admin: 10/18/16 04:03 Dose: 2 tab Senna/Docusate Sodium (Senokot S 50 Mg-8.6 Mg) 2 tab PO HS [facility] Last Admin: 10/18/16 21:38 Dose: 2 tab Sitagliptin Phosphate (Januvia) 50 mg PO BID [facility] Last Admin: 10/18/16 17:27 Dose: 50 mg - Labs Labs: 10/17/16 05:45 10/17/16 05:45 PT 11.2 SECONDS (9.6-11.2) 10/16/16 14:40 INR 1.08 (0.92-1.08) 10/16/16 14:40 APTT 30.9 SECONDS (23.3-32.5) 10/16/16 14:40 - Constitutional Appears: Well, Non-toxic, No Acute Distress - Eye Exam Eye Exam: EOMI Pupil Exam: PERRL - ENT Exam ENT Exam: Mucous Membranes Moist - Respiratory Exam Respiratory Exam: Accessory Muscle Use, Clear to Ausculation Bilateral, NORMAL BREATHING PATTERN. absent: Rales, Rhonchi, Wheezes, Respiratory Distress - Cardiovascular Exam Cardiovascular Exam: REGULAR RHYTHM, RRR, +S1, +S2. absent: Tachycardia, JVD, Rubs, Murmur - GI/Abdominal Exam GI & Abdominal Exam: Soft, Normal Bowel Sounds. absent: Distended, Firm, Guarding, Rigid, Tenderness - Extremities Exam Extremities Exam: Pedal Edema (improving right pedal edema s/p surgery. NV Intact), Tenderness (slight tenderness around bandaged incision). 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 PT Eval/Tx -wound closed in OR today, pt tolerated well. Status: Acute (2) Non-insulin dependent type 2 diabetes mellitus Assessment & Plan: -last HbA1C: 7.0% as per pt -accuchecks -resume Januvia 50 BID after surgery -Insulin Coverage scale, low dose. Status: Chronic (3) Essential (primary) hypertension Assessment & Plan: continue monitoring BPs, will intervene accordingly. Status: Chronic (4) DVT prophylaxis Assessment & Plan: -resume Lovenox tomorrow -SCDs Status: Acute - Assessment and Plan (Free Text) Plan: pt to finish 7 day IV Abx over the weekend. Physical therapy to continue. Discussed with ID/Podiatry.
[2016-10-19] MEDS ORDERED: Vancomycin 500 mg Inj IVPB ONE (08:05)
[2016-10-19] MEDS ORDERED: Piperacillin/Tazobact 3.375 gm Inj IVPB ONE (08:05)
[2016-10-19] MEDS ORDERED: HYDROmorphone 0.5 mg/0.5 ml ISec IVP PRN (09:02)
--- NOTE | 2016-10-19 09:07 | PCM.SURG1 ---
Surgeon's Initial Post Op Note - Surgeon's Notes Surgeon: Dr. Page Secondary Education Professor: Clarice Morris PGY-1, Petra Mchugh PGY-2 Type of Anesthesia: IV Sedation, Local Anesthesia Administered By: Dr. Arias Pre-Operative Diagnosis: open wound right foot s/p partial first ray resection Operative Findings: see dictation. M: 4-0 nylon. A; 20 ml 1:1 1%lidocaine plain, 0.5% marcaine plain Post-Operative Diagnosis: same Operation Performed: right foot skin plasty/wound closure Specimen/Specimens Removed: none Estimated Blood Loss: EBL {In ML}: 2 Blood Products Given: N/A Drains Used: No Drains Post-Op Condition: Good Date of Surgery/Procedure: 10/19/16 Time of Surgery/Procedure: 08:00
[2016-10-19] MEDS: Lactated Ringer's 1,000 ML IV SCH ×2 (11:45→16:52)
--- NOTE | 2016-10-19 14:03 | CP.PCM.PN ---
Subjective - Date & Time of Evaluation Date of Evaluation: 10/19/16 Time of Evaluation: 10:00 - Subjective Subjective: events noted iv rx in progress Objective - Vital Signs/Intake and Output Vital Signs (last 24 hours): Temp Pulse Resp BP Pulse Ox 98 F 58 L 18 163/84 H 99 10/19/16 11:20 10/19/16 11:20 10/19/16 11:20 10/19/16 11:20 10/19/16 11:20 Intake and Output: 10/19/16 10/19/16 06:59 18:59 Intake Total 350 Balance 350 - Medications Medications: Current Medications Acetaminophen (Tylenol 325mg Tab) 650 mg PO Q4 PRN PRN Reason: Pain, Mild (1-3) Cyanocobalamin (Vitamin B12 1000 Mcg Tab) 1,000 mcg PO DAILY [facility] Last Admin: 10/19/16 11:50 Dose: 1,000 mcg Dextrose (Dextrose 50% Inj) 0 ml IV STAT PRN; Protocol PRN Reason: Hyglycemia Protocol Dextrose (Glutose 15) 0 gm PO ONCE PRN; Protocol PRN Reason: Hypoglycemia Protocol Glucagon (Glucagen Diagnostic Kit) 0 mg IM STAT PRN; Protocol PRN Reason: Hypoglycemia Protocol Hydromorphone HCl (Dilaudid) 0.5 mg IVP Q10M PRN PRN Reason: Pain, moderate (4-7) Vancomycin HCl 1 gm/ Sodium (Chloride) 250 mls @ 166.667 mls/hr IVPB Q12 [facility] Last Admin: 10/19/16 08:49 Dose: Not Given Piperacillin Sod/Tazobactam (Sod 3.375 gm/ Sodium Chloride) 100 mls @ 100 mls/ hr IVPB Q6 [facility] Last Admin: 10/19/16 11:49 Dose: 100 mls/hr Lactated Ringer's (Lactated Ringer's) 1,000 mls @ 125 mls/hr IV .Q8H [facility] Last Admin: 10/19/16 11:45 Dose: Not Given Insulin Human Regular (Humulin R) 0 units SC ACHS [facility] PRN Reason: Protocol Last Admin: 10/19/16 12:15 Dose: 1 unit Oxycodone/Acetaminophen (Percocet 5/325 Mg Tab) 1 tab PO Q4 PRN PRN Reason: Pain, moderate (4-7) Stop: 10/19/16 19:35 Oxycodone/Acetaminophen (Percocet 5/325 Mg Tab) 2 tab PO Q4 PRN PRN Reason: Pain, severe (8-10) Stop: 10/19/16 19:35 Last Admin: 10/18/16 04:03 Dose: 2 tab Senna/Docusate Sodium (Senokot S 50 Mg-8.6 Mg) 2 tab PO HS [facility] Last Admin: 10/18/16 21:38 Dose: 2 tab Sitagliptin Phosphate (Januvia) 50 mg PO BID [facility] Last Admin: 10/18/16 17:27 Dose: 50 mg - Labs Labs: 10/17/16 05:45 10/17/16 05:45 PT 11.2 SECONDS (9.6-11.2) 10/16/16 14:40 INR 1.08 (0.92-1.08) 10/16/16 14:40 APTT 30.9 SECONDS (23.3-32.5) 10/16/16 14:40 - Constitutional Appears: Non-toxic, Chronically Ill - Head Exam Head Exam: NORMOCEPHALIC - Eye Exam Eye Exam: absent: Scleral icterus - ENT Exam ENT Exam: Mucous Membranes Dry - Neck Exam Neck Exam: absent: Lymphadenopathy Assessment and Plan (1) Diabetic foot infection Status: Acute (2) Amputated toe Status: Acute (3) Osteomyelitis of foot Status: Acute (4) Type 2 diabetes mellitus Status: Chronic
[2016-10-19] MEDS: Docusate-Senna 50 mg-8.6 mg Tab PO SCH (22:25)
[2016-10-20] MEDS: Piperacillin/Tazobact 3.375 GM in Sodium Chloride 0.9% 100 ML IVPB SCH ×4 (04:13→22:40)
[2016-10-20] MEDS: Insulin Regular 100 units/ml SC SCH ×4 (06:40→21:06)
--- NOTE | 2016-10-20 08:16 | OP ---
PROCEDURE DATE: 10/19/2016 SURGEON: Dr. Braxton Page. QUALITY CONTROL CHEMIST: Dr. Horner, Dr. Mchugh. ANESTHESIOLOGIST: Dr. Underwood. ANESTHESIA: IV sedation with local. PREOPERATIVE DIAGNOSIS: Open wound of right foot, status post partial first ray resection. POSTOPERATIVE DIAGNOSIS: Open wound of right foot, status post partial first ray resection. PROCEDURE PERFORMED: Right foot skin plasty with wound closure. INDICATIONS: The patient is a 46-year-old male with the above diagnosis. Of note, the patient is 3 days status post right hallux amputation-partial first ray resection for osteomyelitis of the hallux. Today, the patient signed the consent after careful explanation of risks, benefits, complications and alternatives for surgical procedures. No guarantees were given nor implied. N.p.o. status was confirmed prior to taking the patient to the operating room. PREPARATION: The patient was brought to the operating room and placed on the operating room table in the supine position. A tourniquet was not required for this procedure. After induction of IV sedation, the patient received a total of 20 mL of 1:1 mixture 1% lidocaine plain with 0.5% Marcaine plain in local block fashion to the right foot. Once local anesthesia was achieved, the right foot was then prepped and draped in usual sterile manner and the procedure began. DESCRIPTION OF PROCEDURE: Right foot skin plasty with wound closure. Attention was then drawn to the right foot where a large gaping wound was noted measuring 10.0 x 5.0 x 3.0 cm. It should be noted that the proximal metatarsal bone of the right foot was of sound integrity. It appeared the wound was granulating well with no purulence.The wound was inspected for residual interspersed necrotic and fibrotic soft tissue which was removed as needed . Using a #15 blade, the skin margins were then freshened to the point of healthy bleeding noted. A pulse lavage- with 3 liters of normal saline and bacitracin was then used to copiously irrigate the wound bed. Using #4-0 nylon suture, the wound edges were then reapproximated in a simple suture technique. Distally the wound demonstrated high wound tension with a large dog ear impeding closure. A skin plasty was performed with triangular skin and soft tissue resections - removing the dog ear and creating excellent low tension end to end wound approximation distally. Completion of the suture repair was achieved. The foot was then cleansed with sterile saline. Wound closure occurred over a drain consisting of 1/4 inch nu gauze. The wound was then dressed with Betadine-soaked Adaptic, DSD, Kerlix and Sabino. It should be noted that the attending, Dr. Page, was present during the entirety of this case. POSTOPERATIVE CONDITION: The patient tolerated anesthesia and procedure well and was escorted to the recovery room with vital signs stable and neurovascular status intact to the right foot. The patient is to remain in house over the weekend to finish course of IV antibiotics per infectious disease. The patient will follow up with Dr. Page following discharge. EDGARDO HORNER DPM HARPAL Mtz DPM cc: [id number] TT: 10/20/2016 08:16:03 martínez SALAZAR
--- NOTE | 2016-10-20 08:17 | CP.PCM.PN ---
Subjective - Date & Time of Evaluation Date of Evaluation: 10/20/16 Time of Evaluation: 08:14 - Subjective Subjective: 46 y/o male seen at bedside with attending Dr. Page 1 day s/p right hallux delayed primary closure, 4 days s/p hallux amputation with partial metatarsal resection. Patient resting comfortably in NAD adn AAOX3. Patient denies any acute events overnight. THe dressing to his right foot remains c/d/i. Patient denies any n/f/v/c/d/sob. Objective - Vital Signs/Intake and Output Vital Signs (last 24 hours): Temp Pulse Resp BP Pulse Ox 99.5 F 76 20 157/81 H 97 10/20/16 07:34 10/20/16 07:34 10/20/16 07:34 10/20/16 07:34 10/20/16 07:34 - Medications Medications: Current Medications Acetaminophen (Tylenol 325mg Tab) 650 mg PO Q4 PRN PRN Reason: Pain, Mild (1-3) Cyanocobalamin (Vitamin B12 1000 Mcg Tab) 1,000 mcg PO DAILY [facility] Last Admin: 10/19/16 11:50 Dose: 1,000 mcg Dextrose (Dextrose 50% Inj) 0 ml IV STAT PRN; Protocol PRN Reason: Hyglycemia Protocol Dextrose (Glutose 15) 0 gm PO ONCE PRN; Protocol PRN Reason: Hypoglycemia Protocol Glucagon (Glucagen Diagnostic Kit) 0 mg IM STAT PRN; Protocol PRN Reason: Hypoglycemia Protocol Hydromorphone HCl (Dilaudid) 0.5 mg IVP Q10M PRN PRN Reason: Pain, moderate (4-7) Vancomycin HCl 1 gm/ Sodium (Chloride) 250 mls @ 166.667 mls/hr IVPB Q12 [facility] Last Admin: 10/19/16 20:30 Dose: 166.667 mls/hr Piperacillin Sod/Tazobactam (Sod 3.375 gm/ Sodium Chloride) 100 mls @ 100 mls/ hr IVPB Q6 [facility] Last Admin: 10/20/16 04:13 Dose: 100 mls/hr Lactated Ringer's (Lactated Ringer's) 1,000 mls @ 125 mls/hr IV .Q8H [facility] Last Admin: 10/19/16 16:52 Dose: Not Given Insulin Human Regular (Humulin R) 0 units SC ACHS [facility] PRN Reason: Protocol Last Admin: 10/20/16 06:40 Dose: 2 unit Senna/Docusate Sodium (Senokot S 50 Mg-8.6 Mg) 2 tab PO HS [facility] Last Admin: 10/19/16 22:25 Dose: Not Given Sitagliptin Phosphate (Januvia) 50 mg PO BID [facility] Last Admin: 10/18/16 17:27 Dose: 50 mg - Labs Labs: 10/17/16 05:45 10/17/16 05:45 PT 11.2 SECONDS (9.6-11.2) 10/16/16 14:40 INR 1.08 (0.92-1.08) 10/16/16 14:40 APTT 30.9 SECONDS (23.3-32.5) 10/16/16 14:40 - Constitutional Appears: Well, Non-toxic, No Acute Distress - Extremities Exam Additional comments: Vasc: palpable pedal pulses, TG wnl, CFT < 3 sec to all digits, mild edema neuro: grossly diminished derm: mild edema, no erythema, surgical incision site well-coapted, sutures intact, packing intact, no signs of wound dehiscence, no drainage, no purulence , no malodor, no acute clinical signs of infection ortho: pain on palpation to right hallux surgical incision site - Neurological Exam Neurological Exam: Alert, Awake, Oriented x3 - Psychiatric Exam Psychiatric exam: Normal Affect, Normal Mood Assessment and Plan - Assessment and Plan (Free Text) Assessment: 46 y/o male seen at bedside 1 day s/p delayed primary closure of a right hallux amputation with metatarsal head resection (DOS: 10/16/16) Plan: patient evaluated and seen at bedside with attending Dr. Page labs and vitals reviewed; afebrile pulled packing from wound, applied betadine soaked adaptic, DSD, ABD, kerlix, TAMMY to right foot continue IV abx as per ID podiatry will continue to monitor while patient remains in house
[2016-10-20] MEDS: Lactated Ringer's 1,000 ML IV SCH ×2 (08:34→16:09)
[2016-10-20 09:39] LABS: MEAN CELL VOLUME 77.7 fl (80.0-94.0); MEAN CORPUSCULAR HEMOGLOBIN 27.1 pg (27.0-31.0); MEAN CORPUSCULAR HGB CONC 34.8 g/dL (33.0-37.0); RED CELL DISTRIBUTION WIDTH 13.8 % (11.5-14.5); WHITE BLOOD COUNT 5.5 K/uL (4.8-10.8)
--- NOTE | 2016-10-20 09:49 | CP.PCM.PN ---
Subjective - Date & Time of Evaluation Date of Evaluation: 10/20/16 Time of Evaluation: 09:48 - Subjective Subjective: pt seen and examined at bedside. Lying in bed comfortably, NAD. No acute events overnight. Pain controlled with medications. OOB/ambulating with crutches. No new medical complaints. Denies fever/chills, headaches, visual disturbances, CP/ SOB/palpitations, N/V/D/C, urinary symptoms, numbness/tingling. Objective - Vital Signs/Intake and Output Vital Signs (last 24 hours): Temp Pulse Resp BP Pulse Ox 99.5 F 76 20 157/81 H 97 10/20/16 07:34 10/20/16 07:34 10/20/16 07:34 10/20/16 07:34 10/20/16 07:34 - Medications Medications: Current Medications Acetaminophen (Tylenol 325mg Tab) 650 mg PO Q4 PRN PRN Reason: Pain, Mild (1-3) Cyanocobalamin (Vitamin B12 1000 Mcg Tab) 1,000 mcg PO DAILY [facility] Last Admin: 10/20/16 08:34 Dose: 1,000 mcg Dextrose (Dextrose 50% Inj) 0 ml IV STAT PRN; Protocol PRN Reason: Hyglycemia Protocol Dextrose (Glutose 15) 0 gm PO ONCE PRN; Protocol PRN Reason: Hypoglycemia Protocol Glucagon (Glucagen Diagnostic Kit) 0 mg IM STAT PRN; Protocol PRN Reason: Hypoglycemia Protocol Hydromorphone HCl (Dilaudid) 0.5 mg IVP Q10M PRN PRN Reason: Pain, moderate (4-7) Vancomycin HCl 1 gm/ Sodium (Chloride) 250 mls @ 166.667 mls/hr IVPB Q12 [facility] Last Admin: 10/20/16 08:33 Dose: 166.667 mls/hr Piperacillin Sod/Tazobactam (Sod 3.375 gm/ Sodium Chloride) 100 mls @ 100 mls/ hr IVPB Q6 [facility] Last Admin: 10/20/16 09:01 Dose: 100 mls/hr Lactated Ringer's (Lactated Ringer's) 1,000 mls @ 125 mls/hr IV .Q8H [facility] Last Admin: 10/20/16 08:34 Dose: Not Given Insulin Human Regular (Humulin R) 0 units SC ACHS [facility] PRN Reason: Protocol Last Admin: 10/20/16 06:40 Dose: 2 unit Senna/Docusate Sodium (Senokot S 50 Mg-8.6 Mg) 2 tab PO HS [facility] Last Admin: 10/19/16 22:25 Dose: Not Given Sitagliptin Phosphate (Januvia) 50 mg PO BID [facility] Last Admin: 10/20/16 08:34 Dose: 50 mg - Labs Labs: 10/20/16 09:00 10/17/16 05:45 PT 11.2 SECONDS (9.6-11.2) 10/16/16 14:40 INR 1.08 (0.92-1.08) 10/16/16 14:40 APTT 30.9 SECONDS (23.3-32.5) 10/16/16 14:40 - Constitutional Appears: Non-toxic, No Acute Distress - Eye Exam Eye Exam: EOMI Pupil Exam: PERRL - ENT Exam ENT Exam: Mucous Membranes Moist - Respiratory Exam Respiratory Exam: Clear to Ausculation Bilateral, NORMAL BREATHING PATTERN. absent: Prolonged Expiratory Phase, Rales, Rhonchi, Wheezes - Cardiovascular Exam Cardiovascular Exam: REGULAR RHYTHM, RRR, +S1, +S2. absent: Gallop, JVD, Rubs, Murmur - GI/Abdominal Exam GI & Abdominal Exam: Soft, Normal Bowel Sounds. absent: Distended, Firm, Guarding, Rigid, Tenderness - Extremities Exam Extremities Exam: Full ROM. absent: Normal Inspection (right foot with fresh bandage. NV intact, edema around right ankle decreased. 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 Bone Patho: Acute osteomyelitis in great toe, margins w/o osteomyelitits ESR: 78 ID Consult appreciated: agrees with continuing and completing current Abx treatment through the weekend as margins were without infection. PT Eval/Tx Status: Acute (2) Non-insulin dependent type 2 diabetes mellitus Assessment & Plan: -last HbA1C: 7.0% as per pt -accuchecks -resume Januvia 50 BID after surgery -Insulin Coverage scale, low dose. Status: Chronic (3) Essential (primary) hypertension Assessment & Plan: Losartan 50mg PO QD Status: Chronic (4) DVT prophylaxis Assessment & Plan: Lovenox 40mg SC QD Status: Acute - Assessment and Plan (Free Text) Plan: pt to continue 7 day Abx course, Day 5, Vanco trough to be taken tonight.
[2016-10-20] MEDS: Enoxaparin 40 mg Syringe SC SCH (12:14)
[2016-10-20] MEDS: Docusate-Senna 50 mg-8.6 mg Tab PO SCH (21:07)
[2016-10-21] MEDS: Lactated Ringer's 1,000 ML IV SCH ×3 (01:00→17:06)
[2016-10-21] MEDS: Piperacillin/Tazobact 3.375 GM in Sodium Chloride 0.9% 100 ML IVPB SCH ×2 (04:21→09:54)
[2016-10-21] MEDS: Insulin Regular 100 units/ml SC SCH ×4 (06:49→22:43)
[2016-10-21 08:21] LABS: HEMATOCRIT 28.1 % (35.0-51.0); MEAN CELL VOLUME 78.7 fl (80.0-94.0); MEAN CORPUSCULAR HEMOGLOBIN 26.1 pg (27.0-31.0); MEAN CORPUSCULAR HGB CONC 33.2 g/dL (33.0-37.0); RED CELL DISTRIBUTION WIDTH 13.9 % (11.5-14.5); WHITE BLOOD COUNT 5.2 K/uL (4.8-10.8)
[2016-10-21 08:29] LABS: BLOOD UREA NITROGEN 15 mg/dl (9-20); CALCIUM 9.3 mg/dL (8.4-10.2); CARBON DIOXIDE 28 mmol/L (22-30); CHLORIDE 104 mmol/L (98-107); GFR AFRICAN-AMERICAN > 60; GLUCOSE,RANDOM 180 mg/dL (75-110); SODIUM 140 mmol/l (132-148)
[2016-10-21] MEDS: Enoxaparin 40 mg Syringe SC SCH (09:51)
--- NOTE | 2016-10-21 11:01 | CP.PCM.PN ---
Subjective - Date & Time of Evaluation Date of Evaluation: 10/21/16 Time of Evaluation: 10:59 - Subjective Subjective: 46 y/o male seen at bedside 2 day s/p right hallux delayed primary closure, 5 days s/p hallux amputation with partial metatarsal resection. Patient resting comfortably in NAD and AAOX3. Patient denies any acute events overnight. THe dressing to his right foot remains c/d/i. Patient denies any n/f/v/c/d/sob. Objective - Vital Signs/Intake and Output Vital Signs (last 24 hours): Temp Pulse Resp BP Pulse Ox 98.4 F 61 20 162/83 H 100 10/21/16 07:32 10/21/16 09:52 10/21/16 07:32 10/21/16 09:52 10/21/16 07:32 - Medications Medications: Current Medications Acetaminophen (Tylenol 325mg Tab) 650 mg PO Q4 PRN PRN Reason: Pain, Mild (1-3) Cyanocobalamin (Vitamin B12 1000 Mcg Tab) 1,000 mcg PO DAILY [facility] Last Admin: 10/21/16 09:52 Dose: 1,000 mcg Dextrose (Dextrose 50% Inj) 0 ml IV STAT PRN; Protocol PRN Reason: Hyglycemia Protocol Dextrose (Glutose 15) 0 gm PO ONCE PRN; Protocol PRN Reason: Hypoglycemia Protocol Enoxaparin Sodium (Lovenox) 40 mg SC DAILY [facility] PRN Reason: Protocol Last Admin: 10/21/16 09:51 Dose: 40 mg Glucagon (Glucagen Diagnostic Kit) 0 mg IM STAT PRN; Protocol PRN Reason: Hypoglycemia Protocol Hydromorphone HCl (Dilaudid) 0.5 mg IVP Q10M PRN PRN Reason: Pain, moderate (4-7) Vancomycin HCl 1 gm/ Sodium (Chloride) 250 mls @ 166.667 mls/hr IVPB Q12 [facility] Last Admin: 10/21/16 09:53 Dose: 166.667 mls/hr Piperacillin Sod/Tazobactam (Sod 3.375 gm/ Sodium Chloride) 100 mls @ 100 mls/ hr IVPB Q6 [facility] Last Admin: 10/21/16 09:54 Dose: 100 mls/hr Lactated Ringer's (Lactated Ringer's) 1,000 mls @ 125 mls/hr IV .Q8H [facility] Last Admin: 10/21/16 09:56 Dose: 125 mls/hr Insulin Human Regular (Humulin R) 0 units SC ACHS [facility] PRN Reason: Protocol Last Admin: 10/21/16 06:49 Dose: 1 unit Losartan Potassium (Cozaar) 100 mg PO DAILY [facility] Senna/Docusate Sodium (Senokot S 50 Mg-8.6 Mg) 2 tab PO HS [facility] Last Admin: 10/20/16 21:07 Dose: 2 tab Sitagliptin Phosphate (Januvia) 50 mg PO BID [facility] Last Admin: 10/21/16 09:52 Dose: 50 mg - Labs Labs: 10/21/16 06:30 10/21/16 06:00 PT 11.2 SECONDS (9.6-11.2) 10/16/16 14:40 INR 1.08 (0.92-1.08) 10/16/16 14:40 APTT 30.9 SECONDS (23.3-32.5) 10/16/16 14:40 - Constitutional Appears: Well, Non-toxic, No Acute Distress - Extremities Exam Additional comments: dressing to right foot remains c/d/i no calf pain or tenderness cft < 3 sec to all digits - Neurological Exam Neurological Exam: Alert, Awake, Oriented x3 - Psychiatric Exam Psychiatric exam: Normal Affect, Normal Mood Assessment and Plan - Assessment and Plan (Free Text) Assessment: 46 y/o male seen at bedside 2 day s/p delayed primary closure of a right hallux amputation with metatarsal head resection (DOS: 10/16/16) Plan: patient evaluated and chart reviewed discussed in detail with attending Dr. Page labs and vitals reviewed; afebrile dressing to right foot remains clean,dry,intact will change dressing tomorrow continue IV abx as per ID podiatry will continue to monitor while patient remains in house
--- NOTE | 2016-10-21 13:02 | CP.PCM.PN ---
Subjective - Date & Time of Evaluation Date of Evaluation: 10/21/16 Time of Evaluation: 09:00 - Subjective Subjective: Pt seen sitting up in bed, eating breakfast. No acute overnight events. Pt remains afebrile, pain well controlled. Sleeping and eating well. Ambulating with crutches. Podiatry following pt and doing dressing changes. Pt has no current complaints at this time. Objective - Vital Signs/Intake and Output Vital Signs (last 24 hours): Temp Pulse Resp BP Pulse Ox 98.4 F 61 20 162/83 H 100 10/21/16 07:32 10/21/16 09:52 10/21/16 07:32 10/21/16 09:52 10/21/16 07:32 - Medications Medications: Current Medications Acetaminophen (Tylenol 325mg Tab) 650 mg PO Q4 PRN PRN Reason: Pain, Mild (1-3) Cyanocobalamin (Vitamin B12 1000 Mcg Tab) 1,000 mcg PO DAILY [facility] Last Admin: 10/21/16 09:52 Dose: 1,000 mcg Dextrose (Dextrose 50% Inj) 0 ml IV STAT PRN; Protocol PRN Reason: Hyglycemia Protocol Dextrose (Glutose 15) 0 gm PO ONCE PRN; Protocol PRN Reason: Hypoglycemia Protocol Enoxaparin Sodium (Lovenox) 40 mg SC DAILY [facility] PRN Reason: Protocol Last Admin: 10/21/16 09:51 Dose: 40 mg Glucagon (Glucagen Diagnostic Kit) 0 mg IM STAT PRN; Protocol PRN Reason: Hypoglycemia Protocol Hydromorphone HCl (Dilaudid) 0.5 mg IVP Q10M PRN PRN Reason: Pain, moderate (4-7) Vancomycin HCl 1 gm/ Sodium (Chloride) 250 mls @ 166.667 mls/hr IVPB Q12 [facility] Last Admin: 10/21/16 09:53 Dose: 166.667 mls/hr Piperacillin Sod/Tazobactam (Sod 3.375 gm/ Sodium Chloride) 100 mls @ 100 mls/ hr IVPB Q6 [facility] Last Admin: 10/21/16 09:54 Dose: 100 mls/hr Lactated Ringer's (Lactated Ringer's) 1,000 mls @ 125 mls/hr IV .Q8H [facility] Last Admin: 10/21/16 09:56 Dose: 125 mls/hr Insulin Human Regular (Humulin R) 0 units SC ACHS [facility] PRN Reason: Protocol Last Admin: 10/21/16 12:19 Dose: 2 unit Losartan Potassium (Cozaar) 100 mg PO DAILY [facility] Senna/Docusate Sodium (Senokot S 50 Mg-8.6 Mg) 2 tab PO HS [facility] Last Admin: 10/20/16 21:07 Dose: 2 tab Sitagliptin Phosphate (Januvia) 50 mg PO BID [facility] Last Admin: 10/21/16 09:52 Dose: 50 mg - Labs Labs: 10/21/16 06:30 10/21/16 06:00 PT 11.2 SECONDS (9.6-11.2) 10/16/16 14:40 INR 1.08 (0.92-1.08) 10/16/16 14:40 APTT 30.9 SECONDS (23.3-32.5) 10/16/16 14:40 - Constitutional Appears: Non-toxic, No Acute Distress - Eye Exam Eye Exam: EOMI, Normal appearance - ENT Exam ENT Exam: Mucous Membranes Moist - Respiratory Exam Respiratory Exam: Clear to Ausculation Bilateral, NORMAL BREATHING PATTERN - Cardiovascular Exam Cardiovascular Exam: REGULAR RHYTHM, +S1, +S2 - GI/Abdominal Exam GI & Abdominal Exam: Soft, Normal Bowel Sounds. absent: Tenderness - Extremities Exam Extremities Exam: absent: Calf Tenderness Additional comments: RLE with dressing c/d/i. pt is able to move digits. brisk capillary refill. warm to touch. - Neurological Exam Neurological Exam: Alert, Oriented x3 Assessment and Plan - Assessment and Plan (Free Text) Assessment: 1. 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 Quinonez- recommends 7 days of IV abx, since margins were clear (day 7 will be 10/22/16) -Discuss if/which PO abx are needed upon d/c home 2. Non-insulin dependent type 2 diabetes mellitus -last HbA1C: 7.0% as per pt -accuchecks -resume Januvia 50 BID -LDSS 3. Essential (primary) hypertension -Losartan increased to 100mg PO QD -monitor vitals 4. DVT prophylaxis -Lovenox 40mg SC daily
--- NOTE | 2016-10-21 13:34 | CP.PCM.PN ---
Subjective - Date & Time of Evaluation Date of Evaluation: 10/21/16 Time of Evaluation: 08:00 - Subjective Subjective: iv rx reordered cont rx Objective - Vital Signs/Intake and Output Vital Signs (last 24 hours): Temp Pulse Resp BP Pulse Ox 98.4 F 61 20 162/83 H 100 10/21/16 07:32 10/21/16 09:52 10/21/16 07:32 10/21/16 09:52 10/21/16 07:32 - Medications Medications: Current Medications Acetaminophen (Tylenol 325mg Tab) 650 mg PO Q4 PRN PRN Reason: Pain, Mild (1-3) Cyanocobalamin (Vitamin B12 1000 Mcg Tab) 1,000 mcg PO DAILY [facility] Last Admin: 10/21/16 09:52 Dose: 1,000 mcg Dextrose (Dextrose 50% Inj) 0 ml IV STAT PRN; Protocol PRN Reason: Hyglycemia Protocol Dextrose (Glutose 15) 0 gm PO ONCE PRN; Protocol PRN Reason: Hypoglycemia Protocol Enoxaparin Sodium (Lovenox) 40 mg SC DAILY [facility] PRN Reason: Protocol Last Admin: 10/21/16 09:51 Dose: 40 mg Glucagon (Glucagen Diagnostic Kit) 0 mg IM STAT PRN; Protocol PRN Reason: Hypoglycemia Protocol Hydromorphone HCl (Dilaudid) 0.5 mg IVP Q10M PRN PRN Reason: Pain, moderate (4-7) Vancomycin HCl 1 gm/ Sodium (Chloride) 250 mls @ 166.667 mls/hr IVPB Q12 [facility] Last Admin: 10/21/16 09:53 Dose: 166.667 mls/hr Piperacillin Sod/Tazobactam (Sod 3.375 gm/ Sodium Chloride) 100 mls @ 100 mls/ hr IVPB Q6 [facility] Last Admin: 10/21/16 09:54 Dose: 100 mls/hr Lactated Ringer's (Lactated Ringer's) 1,000 mls @ 125 mls/hr IV .Q8H [facility] Last Admin: 10/21/16 09:56 Dose: 125 mls/hr Insulin Human Regular (Humulin R) 0 units SC ACHS [facility] PRN Reason: Protocol Last Admin: 10/21/16 12:19 Dose: 2 unit Losartan Potassium (Cozaar) 100 mg PO DAILY [facility] Senna/Docusate Sodium (Senokot S 50 Mg-8.6 Mg) 2 tab PO HS [facility] Last Admin: 10/20/16 21:07 Dose: 2 tab Sitagliptin Phosphate (Januvia) 50 mg PO BID [facility] Last Admin: 10/21/16 09:52 Dose: 50 mg - Labs Labs: 10/21/16 06:30 10/21/16 06:00 PT 11.2 SECONDS (9.6-11.2) 10/16/16 14:40 INR 1.08 (0.92-1.08) 10/16/16 14:40 APTT 30.9 SECONDS (23.3-32.5) 10/16/16 14:40 - Constitutional Appears: Non-toxic, Chronically Ill - Head Exam Head Exam: NORMOCEPHALIC - Eye Exam Eye Exam: PERRL. absent: Scleral icterus - ENT Exam ENT Exam: Mucous Membranes Dry - Neck Exam Neck Exam: absent: Lymphadenopathy - Cardiovascular Exam Cardiovascular Exam: REGULAR RHYTHM, +S1, +S2 - GI/Abdominal Exam GI & Abdominal Exam: Distended, Soft. absent: Tenderness - Rectal Exam Rectal Exam: Deferred - Exam Exam: NORMAL INSPECTION - Extremities Exam Extremities Exam: absent: Pedal Edema - Back Exam Back Exam: absent: CVA tenderness (L), CVA tenderness (R) - Neurological Exam Neurological Exam: Alert, Awake, Oriented x3 - Psychiatric Exam Psychiatric exam: Normal Mood - Skin Skin Exam: Dry Assessment and Plan (1) Diabetic foot infection Status: Acute (2) Amputated toe Status: Acute (3) Osteomyelitis of foot Status: Acute (4) Type 2 diabetes mellitus Status: Chronic
[2016-10-21] MEDS: ceFAZolin 2 GM in Sodium Chloride 0.9% 100 ML IVPB SCH (16:53)
[2016-10-21] MEDS: Docusate-Senna 50 mg-8.6 mg Tab PO SCH (22:46)
[2016-10-22] MEDS: ceFAZolin 2 GM in Sodium Chloride 0.9% 100 ML IVPB SCH ×2 (00:55→10:05)
[2016-10-22] MEDS: Lactated Ringer's 1,000 ML IV SCH ×2 (01:14→10:09)
[2016-10-22] MEDS: Insulin Regular 100 units/ml SC SCH (06:35)
[2016-10-22] MEDS ORDERED: Povidone Iodine Topical 10% Sol ONE (06:48)
[2016-10-22 07:39] VITALS: BP 160/83; PULSE 58; RESP 20; TEMP 98.3; O2SAT 99
--- NOTE | 2016-10-22 08:38 | OP ---
PROCEDURE DATE: 10/16/2016 SURGEON: Dr. Page. MEMBER OF THE LEGISLATIVE ASSEMBLY: Dr. Nabil Cisneros. AIRCRAFT ENGINE ASSEMBLER: Dr. Armendariz. ANESTHESIA: IV sedation with local. PREOPERATIVE DIAGNOSIS: 1) Abscess right foot 2 ) Right hallux osteomyelitis- wet gangrene POSTOPERATIVE DIAGNOSIS: 1) Abscess right foot 2 ) Right hallux osteomyelitis- wet gangrene PROCEDURES PERFORMED: 1. Incision and drainage of Abscess right foot 2. Right hallux amputation with partial 1st ray resection right foot INDICATIONS: The patient is a 46-year-old male patient with the above diagnosis. The patient signed the consent after careful explanation of risks, benefits, complication and alternatives for surgical procedure. No guarantees were given nor implied. PREPARATION: The patient was brought into the operating room and placed on the operating room table in a supine position. Time-out was performed for identification of correct patient and procedure. After induction of IV sedation , the patient received a total of 16 mL of 1:1 mixture of 1% lidocaine plain and 0.5% Marcaine plain in a local block type fashion to the right foot around the first MPJ. Once local anesthesia was achieved, the right foot and ankle was then prepped and draped in normal sterile manner and the procedure began. PROCEDURE #1: Incision and drainage of Abscess right foot: Attention was drawn to the right hallux where a circumferential incision was made at the level of the first metatarsophalangeal joint using a #15 blade connecting 2 deep,penetrating ulcers to bone with purulence abscess noted. Incision and drainage was completed evacuating approx. 3 cc of purulence. Wound cultures deep to bone were obtained. The infectious tissues tracked proximally and the right hallux was non- salvageable. PROCEDURE #2: Right hallux amputation with partial 1st ray resection right foot Then, approximately 5 cm longitudinal incision was made to the dorsal aspect of the right foot from the circumferential incision extending proximally. The incisions were then extended down through the subcutaneous layers down to the level of bone. Using a bone clamp to stabilize the right hallux, the hallux was then disarticulated from the right foot at the level of the first metatarsophalangeal joint. This specimen was then passed from the operative field and sent to pathology. Attention was then directed to the right first metatarsal head which was protruding through the wound and noted to have yellow color changes and penetrable upon probing. Using a sagittal bone saw, the distal 1/3 of the head of the first metatarsal bone was resected. This specimen was then passed from the operative field and was sent to pathology. Using a fresh #15 blade, all necrotic and nonviable tissue was then excisionally debrided from the surgical site. The surgical site was then copiously flushed with 3 liters of normal sterile saline with pulse lavage. The remaining metatarsal bone was noted to be of sound integrity. At this time, the wound was packed with half inch iodoform packing and the right foot was dressed with 4 x 4 gauze, Kerlix, ABD pads and Sabino bandages. Immediate capillary refill time was noted to the surgical site and remaining digits. POSTOPERATIVE CONDITION: The patient tolerated the anesthesia and procedure well and was escorted to the recovery room with vital signs stable and neurovascular status intact to the right foot. The attending was present during the entire case. The patient is back to the floor for IV antibiotic treatment. Sandip Paeg DPM, FACFAS cc: 105 TT: 10/19/2016 07:39:48 samir SALAZAR
--- NOTE | 2016-10-22 08:42 | CP.PCM.PN ---
Subjective - Date & Time of Evaluation Date of Evaluation: 10/22/16 Time of Evaluation: 06:50 - Subjective Subjective: 46 y/o male seen at bedside 6 day s/p right hallux amputation with partial metatarsal resection and 2 days s/p delayed primary closure if incision site. Patient resting comfortably in NAD and AAOX3. Patient denies any acute events overnight. The dressing to his right foot remains c/d/i. Patient denies any n/f/ v/c/d/sob. Objective - Vital Signs/Intake and Output Vital Signs (last 24 hours): Temp Pulse Resp BP Pulse Ox 98.3 F 58 L 20 160/83 H 99 10/22/16 07:39 10/22/16 07:39 10/22/16 07:39 10/22/16 07:39 10/22/16 07:39 - Medications Medications: Current Medications Acetaminophen (Tylenol 325mg Tab) 650 mg PO Q4 PRN PRN Reason: Pain, Mild (1-3) Cyanocobalamin (Vitamin B12 1000 Mcg Tab) 1,000 mcg PO DAILY [facility] Last Admin: 10/21/16 09:52 Dose: 1,000 mcg Dextrose (Dextrose 50% Inj) 0 ml IV STAT PRN; Protocol PRN Reason: Hyglycemia Protocol Dextrose (Glutose 15) 0 gm PO ONCE PRN; Protocol PRN Reason: Hypoglycemia Protocol Enoxaparin Sodium (Lovenox) 40 mg SC DAILY [facility] PRN Reason: Protocol Last Admin: 10/21/16 09:51 Dose: 40 mg Glucagon (Glucagen Diagnostic Kit) 0 mg IM STAT PRN; Protocol PRN Reason: Hypoglycemia Protocol Hydromorphone HCl (Dilaudid) 0.5 mg IVP Q10M PRN PRN Reason: Pain, moderate (4-7) Lactated Ringer's (Lactated Ringer's) 1,000 mls @ 125 mls/hr IV .Q8H [facility] Last Admin: 10/22/16 01:14 Dose: Not Given Cefazolin Sodium 2 gm/ Sodium (Chloride) 100 mls @ 100 mls/hr IVPB Q8 [facility] Last Admin: 10/22/16 00:55 Dose: 100 mls/hr Insulin Human Regular (Humulin R) 0 units SC ACHS [facility] PRN Reason: Protocol Last Admin: 10/22/16 06:35 Dose: 3 unit Losartan Potassium (Cozaar) 100 mg PO DAILY [facility] Senna/Docusate Sodium (Senokot S 50 Mg-8.6 Mg) 2 tab PO HS [facility] Last Admin: 10/21/16 22:46 Dose: Not Given Sitagliptin Phosphate (Januvia) 50 mg PO BID [facility] Last Admin: 10/21/16 17:06 Dose: 50 mg - Labs Labs: 10/21/16 06:30 10/21/16 06:00 PT 11.2 SECONDS (9.6-11.2) 10/16/16 14:40 INR 1.08 (0.92-1.08) 10/16/16 14:40 APTT 30.9 SECONDS (23.3-32.5) 10/16/16 14:40 - Constitutional Appears: Well, Non-toxic, No Acute Distress - Extremities Exam Additional comments: dressing to right foot remains c/d/i no calf pain or tenderness cft < 3 sec to all digits. Incision site is well coapted with no acute signs of infection, all sutures in tact. Medial margin of amputation site, outside of suture area, shows focal point of maceration with moderate skin breakdown. No drainage noted to this site. - Neurological Exam Neurological Exam: Alert, Awake, Oriented x3 - Psychiatric Exam Psychiatric exam: Normal Affect, Normal Mood - Skin Skin Exam: Intact, Normal Color, Warm Assessment and Plan - Assessment and Plan (Free Text) Assessment: 46 y/o male seen at bedside 3 day s/p delayed primary closure of a right hallux amputation with metatarsal head resection (DOS: 10/16/16) Plan: patient evaluated and chart reviewed discussed in detail with attending Dr. Page labs and vitals reviewed; afebrile Redressed surgical site with betadine soaked adaptic wet-to-dy, DSD, Kerlix, & TAMMY. Pt to remain weight-bearing as tolerated to right heel with post-op shoe and axillary crutch assist as needed. Oral Kelfex 500mg per ID. Pt i stable from podiatry standpoint for discharge home. Will followup with Dr. Page in office, within 7 days, for post-op check. Dressings to remain intact until that time.
[2016-10-22] MEDS: Enoxaparin 40 mg Syringe SC SCH (10:04)
--- NOTE | 2016-10-22 10:29 | CP.PCM.DIS ---
Provider - Provider Date of Admission: 10/16/16 15:17 Attending physician: Kanwal Zelaya MD Time Spent in preparation of Discharge (in minutes): 30 Diagnosis - Discharge Diagnosis (1) Diabetic infection of right foot Status: Acute Priority: High Comment: During admission Podiatry and Infectious disease were consulted. Patient is s/p Right foot hallux amputation with 1st metatarsal resection. Patient will follow with Podiatry, Dr. aPge, on next Saturday for surgical wound evaluation and care. We also recommend f/u with PMD as outpatient after discharge. (2) Type 2 diabetes mellitus Status: Chronic Priority: Medium Comment: Continue home medication for NIDDM type II. Continue f/u with PMD as outpatient. (3) Essential (primary) hypertension Status: Chronic Priority: Medium Comment: During admission we re-assumed home antihypertensive. BP was 160-170s systolic, and patient was given Losartan 100 mg daily. We recommed f/u with PMD as outpatient. Hospital Course - Lab Results Lab Results: Most Recent Lab Values WBC 5.2 K/uL (4.8-10.8) 10/21/16 06:30 RBC 3.58 Mil/uL (4.40-5.90) L 10/21/16 06:30 Hgb 9.3 g/dL (12.0-18.0) L 10/21/16 06:30 Hct 28.1 % (35.0-51.0) L 10/21/16 06:30 MCV 78.7 fl (80.0-94.0) L 10/21/16 06:30 MCH 26.1 pg (27.0-31.0) L 10/21/16 06:30 MCHC 33.2 g/dL (33.0-37.0) 10/21/16 06:30 RDW 13.9 % (11.5-14.5) 10/21/16 06:30 Plt Count 119 K/uL (130-400) L 10/21/16 06:30 MPV 12.0 fl (7.2-11.7) H 10/17/16 05:45 Neut % (Auto) 61.9 % (50.0-75.0) 10/17/16 05:45 Lymph % (Auto) 24.1 % (20.0-40.0) 10/17/16 05:45 [place] % (Auto) 10.5 % (0.0-10.0) H 10/17/16 05:45 Eos % (Auto) 2.9 % (0.0-4.0) 10/17/16 05:45 Baso % (Auto) 0.6 % (0.0-2.0) 10/17/16 05:45 Neut # 2.6 K/uL (1.8-7.0) 10/17/16 05:45 Lymph # 1.0 K/uL (1.0-4.3) 10/17/16 05:45 [place] # 0.4 K/uL (0.0-0.8) 10/17/16 05:45 Eos # 0.1 K/uL (0.0-0.7) 10/17/16 05:45 Baso # 0.0 K/uL (0.0-0.2) 10/17/16 05:45 ESR 78 mm/hr (0-15) H 10/16/16 19:16 PT 11.2 SECONDS (9.6-11.2) 10/16/16 14:40 INR 1.08 (0.92-1.08) 10/16/16 14:40 APTT 30.9 SECONDS (23.3-32.5) 10/16/16 14:40 Sodium 140 mmol/l (132-148) 10/21/16 06:00 Potassium 4.0 MMOL/L (3.6-5.0) 10/21/16 06:00 Chloride 104 mmol/L (98-107) 10/21/16 06:00 Carbon Dioxide 28 mmol/L (22-30) 10/21/16 06:00 Anion Gap 11 (10-20) 10/21/16 06:00 BUN 15 mg/dl (9-20) 10/21/16 06:00 Creatinine 1.2 mg/dL (0.8-1.5) 10/21/16 06:00 Est GFR ( Amer) > 60 10/21/16 06:00 Est GFR (Non-Af Amer) > 60 10/21/16 06:00 POC Glucose (mg/dL) 263 mg/dL (65-110) H 10/22/16 06:06 Random Glucose 180 mg/dL (75-110) H 10/21/16 06:00 Calcium 9.3 mg/dL (8.4-10.2) 10/21/16 06:00 Total Bilirubin 0.7 mg/dl (0.2-1.3) 10/16/16 14:40 AST 17 U/L (17-59) D 10/16/16 14:40 ALT 24 U/L (21-72) 10/16/16 14:40 Alkaline Phosphatase 131 U/L (38-126) H 10/16/16 14:40 Total Protein 6.9 G/DL (6.3-8.2) 10/16/16 14:40 Albumin 3.6 g/dL (3.5-5.0) 10/16/16 14:40 Globulin 3.3 gm/dL (2.2-3.9) 10/16/16 14:40 Albumin/Globulin Ratio 1.1 (1.0-2.1) 10/16/16 14:40 Vancomycin Trough 9.2 ug/mL (5.0-10.0) 10/20/16 20:23 - Hospital Course Hospital Course: This is a 46 y/o male with a PMHx remarkable for NIDDM2 controlled with Elvis- met presented to the ED complaining of right toe pain, associated with edema, area of ulceration on the medial aspect of his right 1st digit. Patient was admitted with a diagnosis of Right foot hallux infection with osteomyelitis. Podiatry team, Dr. Page and ID, Dr. Quinonez were consulted. Patient was taken to OR by Dr. Page for right foot hallux amputation with 1st metatarsal resection, and specimen was sent for pathology analysis. Wound culture showed Staph aureus infection after final report. Blood culture showed no growth after 5 days. Patient was afebrile,and pain was well controlled after surgical intervention. Patient was managed with Vancomycin and Zosyn IV as per ID recommendation. Patient tolerated antibiotics well, no side effects or adverse reaction noted or reported. Podiatry team performed wound care daily while in house. Patient was seen and examined at bedside today. Patient had an uneventful night. Denies chills, pain, nausea, vomiting or other complains. Patient was evaluated by physical therapy, who did not give any restrictions at this time, and instructed patient on crutches use. Podiatry team will perform wound care before discharge home. Patient is stable for Medicine, Infectious disease, Podiatry and Physical therapy standpoint to be discharged home today on Keflex PO to complete 7 days course (since margins were clear), and pain management PRN with percocet. Patient will follow with podiatry team on Saturday as outpatient, Dr. Page, for surgical wound evaluation and care. Discharge medications: Start Keflex 500 mg TID PO for 7 days Start Atorvastatin 20 mg 1 tab daily PO Start Percocet 325/5 mg 1 tab Q 8 hours as needed for pain control Home medications: Continue Sitagliptin/Metformin 50-1000 mg PO BID Vitamin B12 1000 mcg 1 tab PO daily - Date & Time of H&P Date of H&P: 10/16/16 Time of H&P: 15:00 Discharge Exam - Head Exam Head Exam: NORMOCEPHALIC - Eye Exam Eye Exam: Normal appearance - ENT Exam ENT Exam: Mucous Membranes Moist - Respiratory Exam Respiratory Exam: Clear to PA & Lateral, NORMAL BREATHING PATTERN - Cardiovascular Exam Cardiovascular Exam: REGULAR RHYTHM, +S1, +S2 - GI/Abdominal Exam GI & Abdominal Exam: Normal Bowel Sounds, Soft. absent: Distended, Tenderness - Extremities Exam Extremities exam: normal inspection Additional comments: no edema noted, right foot covered with dressing and elastic bandage. - Neurological Exam Neurological exam: Alert, Oriented x3 - Psychiatric Exam Psychiatric exam: Normal Affect, Normal Mood - Skin Skin Exam: Dry, Intact, Normal Color Discharge Plan - Follow Up Plan Condition: STABLE Disposition: HOME/ ROUTINE Instructions: Hypertension (DC), Hypertension (GEN) Additional Instructions: Continue f/u with PMD as outpatient for DM and HTN monitoring. F/U with Podiatry for wound evaluation and care
== END 2016-10-22 17:00 | disposition home or self-care (01) | DRG 617 ==
LOC: H.ER 12:58 → H.ERHOLD 15:17 → H.MEDSURG1 16:27
PROVIDERS: ADMIT Family Medicine Geriatric Medicine; ATTEND Family Medicine Geriatric Medicine
PROC: 0Y6P0Z0 Detachment at Right 1st Toe, Complete, Open Approach (ICD-10-PCS; principal; 2016-10-16 16:45)
PROC: 3E0234Z Introduction of Serum, Toxoid and Vaccine into Muscle, Percutaneous Approach (ICD-10-PCS; 2016-10-17)
PROC: 0HQMXZZ Repair Right Foot Skin, External Approach (ICD-10-PCS; 2016-10-19)
DX: E11.628 Type 2 diabetes mellitus with other skin complications (principal); M86.171 Other acute osteomyelitis, right ankle and foot; I10 Essential (primary) hypertension; E11.621 Type 2 diabetes mellitus with foot ulcer; L97.519 Non-pressure chronic ulcer of other part of right foot with unspecified severity; B95.61 Methicillin susceptible Staphylococcus aureus infection as the cause of diseases classified elsewhere; Z79.4 Long term (current) use of insulin; Z23 Encounter for immunization; Z87.891 Personal history of nicotine dependence

== ENCOUNTER 2016-11-14 11:33 | Inpatient (IN) | payer BC ==
[2016-11-14 11:54] VITALS: BMI 29.8
[2016-11-14 13:18] LABS: BASO % 0.7 % (0.0-2.0); EOS # 0.2 K/uL (0.0-0.7); EOS % 4.5 % (0.0-4.0); HEMATOCRIT 38.5 % (35.0-51.0); LYMPH # 0.9 K/uL (1.0-4.3); LYMPH % 20.1 % (20.0-40.0); MEAN CELL VOLUME 80.3 fl (80.0-94.0); MEAN CORPUSCULAR HEMOGLOBIN 26.3 pg (27.0-31.0); MEAN CORPUSCULAR HGB CONC 32.8 g/dL (33.0-37.0); MONO # 0.3 K/uL (0.0-0.8); MONO % 5.7 % (0.0-10.0); NEUT # 3.2 K/uL (1.8-7.0); NRBC % 0.1 % (0.0-0.0); RED CELL DISTRIBUTION WIDTH 15.5 % (11.5-14.5); WHITE BLOOD COUNT 4.7 K/uL (4.8-10.8)
[2016-11-14 13:30] LABS: ALB/GLOB RATIO 1.5 (1.0-2.1); ALKALINE PHOSPHATASE 83 U/L (38-126); ALT/SGPT 39 U/L (21-72); AST/SGOT 23 U/L (17-59); BILIRUBIN,TOTAL 0.6 mg/dl (0.2-1.3); BLOOD UREA NITROGEN 15 mg/dl (9-20); CALCIUM 9.8 mg/dL (8.4-10.2); CARBON DIOXIDE 29 mmol/L (22-30); CHLORIDE 103 mmol/L (98-107); GFR AFRICAN-AMERICAN > 60; GLUCOSE,RANDOM 226 mg/dL (75-110); POTASSIUM 4.6 MMOL/L (3.6-5.0); SODIUM 140 mmol/l (132-148); TOTAL PROTEIN 7.3 G/DL (6.3-8.2)
--- NOTE | 2016-11-14 13:31 | ED PDOC ---
HPI: General Adult Time Seen by Provider: 11/14/16 12:10 Chief Complaint (Nursing): Lower Extremity Problem/Injury Chief Complaint (Provider): possible right foot infection History Per: Patient History/Exam Limitations: no limitations Additional Complaint(s): 46yo male had R foot surgery by Dr. Page cardiac surgeon 1 month ago and is now sent here for evaluation of right foot possible infection. Patient has no further complaints. Denies fever or pain. Past Medical History Reviewed: Historical Data, Nursing Documentation, Vital Signs Vital Signs: Last Vital Signs Temp 98.4 F 11/15/16 07:49 Pulse 72 11/15/16 07:49 Resp 20 11/15/16 07:49 BP 107/71 11/15/16 07:49 Pulse Ox 99 11/15/16 07:49 - Medical History PMH: Diabetes Denies: Chronic Kidney Disease - Surgical History Surgical History: No Surg Hx - Family History Family History: States: Unknown Family Hx - Social History Current smoker - smoking cessation education provided: No Alcohol: None Drugs: Denies - Home Medications Home Medications: Ambulatory Orders Medication Instructions Recorded Cyanocobalamin [Vitamin B12 1000 1 tab PO DAILY 10/16/16 mcg Tab] Sitagliptin Phos/Metformin HCl 1 tab PO BID 10/16/16 [Janumet 50-1,000 mg Tablet] Atorvastatin [Lipitor] 20 mg PO DAILY #30 tab 10/22/16 Cephalexin [cephalexin] 500 mg PO TID #21 cap 10/22/16 oxyCODONE/Acetaminophen [Percocet 1 ea PO Q8 PRN #15 tab 10/22/16 5/325 mg Tab] - Allergies Allergies/Adverse Reactions: Allergies Allergy/AdvReac Type Severity Reaction Status Date / Time No Known Allergies Allergy Verified 11/14/16 11:53 Review of Systems ROS Statement: Except As Marked, All Systems Reviewed And Found Negative Constitutional: Negative for: Fever Musculoskeletal: Negative for: Foot Pain Physical Exam - Reviewed Nursing Documentation Reviewed: Yes Vital Signs Reviewed: Yes - Physical Exam Appears: Positive for: Well, Non-toxic, No Acute Distress Head Exam: Positive for: ATRAUMATIC, NORMAL INSPECTION, NORMOCEPHALIC Skin: Positive for: Warm, Dry Eye Exam: Positive for: EOMI, PERRL Cardiovascular/Chest: Positive for: Regular Rate, Rhythm Respiratory: Positive for: Normal Breath Sounds. Negative for: Rales, Rhonchi, Wheezing Gastrointestinal/Abdominal: Positive for: Normal Exam Extremity: Positive for: Other (Right foot in dorothy bandage. open ulcer on dorsum of first metatarsal with granulation tissues and serosanginous draimnage noted. no purulennce. pulses 2+. ) Neurologic/Psych: Positive for: Alert, Oriented - Laboratory Results Result Diagrams: 11/14/16 12:55 11/14/16 12:55 - ECG O2 Sat by Pulse Oximetry: 100 (RA) Pulse Ox Interpretation: Normal Medical Decision Making Medical Decision Makin Podiatry consult ordered. 1345 podiatry saw the patient. EKG, CXR, XR Right Foot, Labs ordered. Blood culture ordered. 1403 Patient admitted to inpatient med/surg under Dr. Goldstein. Disposition - Clinical Impression Clinical Impression: Foot infection - Patient ED Disposition Is Patient to be Admitted: Yes - Disposition Disposition Time: 13:03 Condition: STABLE Additional Comments - Additional Comments Additional Comments: Scribe Attestation: Documented by [place] acting as a scribe for Modesto Carter MD. Provider Scribe Attestation: All medical record entries made by the Scribe were at my direction and personally dictated by me. I have reviewed the chart and agree that the record accurately reflects my personal performance of the history, physical exam, medical decision making, and the department course for this patient. I have also personally directed, reviewed, and agree with the discharge instructions and disposition.
--- NOTE | 2016-11-14 13:59 | CP.PCM.CON ---
History of Present Illness - History of Present Illness History of Present Illness: 46 y/o male with PMHx of DM presents to the ED today for right foot ulceration. Per patient he was sent to ED today after being seen by Dr. Page in the office. He had an amputation of the hallux 2 weeks ago, and the foot has now been draining a lot. Denies n/v/f/c/sob/cp. Says he had his right 2nd digit amputated in 2013 for a similar problem. Denies any other problems at this time. Past Patient History - Tetanus Immunizations Tetanus Immunization: Unknown - Past Medical History & Family History Past Medical History?: Yes - Past Social History Alcohol: None Drugs: Denies - CARDIAC Hx Cardiac Disorders: No - PULMONARY Hx Respiratory Disorders: No - NEUROLOGICAL Hx Neurological Disorder: No - RENAL Hx Chronic Kidney Disease: No - ENDOCRINE/METABOLIC Hx Diabetes Mellitus Type 2: Yes - MUSCULOSKELETAL/RHEUMATOLOGICAL Hx Falls: No - PSYCHIATRIC Hx Substance Use: No - SURGICAL HISTORY Hx Surgeries: No Other/Comment: rt foot SX 1 month ago - ANESTHESIA Hx Anesthesia: Yes Hx Anesthesia Reactions: No Meds Allergies/Adverse Reactions: Allergies Allergy/AdvReac Type Severity Reaction Status Date / Time No Known Allergies Allergy Verified 11/14/16 11:53 Physical Exam - Constitutional Appears: Well, Non-toxic, No Acute Distress - Extremities Exam Additional comments: Lower extremity focused exam: Vasc: DP and PT pulses palpable, TG wnl, CFT < 3 sec to all digits, mild edema neuro: gross sensation diminished b/l derm: Open ulceration noted to the dorsum of the 1st metatarsal head on the right measuring approximately 3 cm by 2 cm by 0.1 cm with a granular base, periwound is macerated, no malodor noted, serous drainage noted, no purulence, no probe to bone noted ortho: tenderness on palpation to right hallux surgical incision site - Neurological Exam Neurological exam: Alert, Oriented x3 - Psychiatric Exam Psychiatric exam: Normal Affect, Normal Mood Results - Vital Signs Recent Vital Signs: Last Vital Signs Temp 98.6 F 11/14/16 11:54 Pulse 84 11/14/16 11:54 Resp 19 11/14/16 11:54 BP 164/92 H 11/14/16 11:54 Pulse Ox 100 11/14/16 13:34 - Labs Result Diagrams: 11/14/16 12:55 11/14/16 12:55 Labs: Laboratory Results - last 24 hr 11/14/16 11/14/16 12:55 12:55 WBC 4.7 L RBC 4.80 Hgb 12.6 D Hct 38.5 MCV 80.3 MCH 26.3 L MCHC 32.8 L RDW 15.5 H Plt Count 119 L MPV 13.0 H Neut % (Auto) 69.0 Lymph % (Auto) 20.1 [place] % (Auto) 5.7 Eos % (Auto) 4.5 H Baso % (Auto) 0.7 Neut # 3.2 Lymph # 0.9 L [place] # 0.3 Eos # 0.2 Baso # 0.0 Sodium 140 Potassium 4.6 Chloride 103 Carbon Dioxide 29 Anion Gap 14 BUN 15 Creatinine 1.1 Est GFR ( Amer) > 60 Est GFR (Non-Af Amer) > 60 Random Glucose 226 H Calcium 9.8 Total Bilirubin 0.6 AST 23 ALT 39 Alkaline Phosphatase 83 Total Protein 7.3 Albumin 4.3 Globulin 3.0 Albumin/Globulin Ratio 1.5 Assessment & Plan - Assessment and Plan (Free Text) Assessment: 46 year old male with right foot ulcer Plan: Pt examined and evaluate in ED Plan discussed w/ Dr. Page Chart, labs, vitals reviewed EKG, CXR ordered Pt will require right foot ulcer debridement, tomorrow at 7:45 am Addressed all questions and concerns with patient Will require medical clearance prior to OR today NPO after midnight Foot x-ray pending ID doctor Cristiano to be consulted podiatry will continue to follow patient while in house
[2016-11-14] MEDS ORDERED: Piperacillin/Tazobact 4.5 GM in Sodium Chloride 0.9% 100 ML IVPB STA (14:02)
[2016-11-14] MEDS ORDERED: Insulin Regular 100 units/ml SC STA (14:04)
--- NOTE | 2016-11-14 14:33 | RAD ---
HISTORY: admission COMPARISON: Comparison chest dated 10/16/2016. FINDINGS: LUNGS: No active pulmonary disease. PLEURA: No significant pleural effusion identified, no pneumothorax apparent. CARDIOVASCULAR: Normal. OSSEOUS STRUCTURES: No significant abnormalities. VISUALIZED UPPER ABDOMEN: Normal. OTHER FINDINGS: None. IMPRESSION: No active disease.
--- NOTE | 2016-11-14 14:47 | RAD ---
PROCEDURE: Right foot 11/14/2016 Two views of the right foot performed. HISTORY: possible infection COMPARISON: Comparison made with prior study 10/16/2016 FINDINGS: BONES: Re- demonstrated are postoperative transmetatarsal amputation 1st metatarsal and removal of the digits 2nd toe. Residual packing material and/or of resorbable packing material that was seen within the surgical bed no longer visible. There does appear to be subtle periosteal reaction along the lateral aspect of the residual proximal 1st metatarsal which the may represent postoperative sequela however the possibility of early osteomyelitis cannot be excluded. Questionable skin surface/subcutaneous ulceration medial soft tissues at the level of the amputation site. JOINTS: Normal. SOFT TISSUES: As above OTHER FINDINGS: None. IMPRESSION: Re- demonstrated are postoperative transmetatarsal amputation 1st metatarsal and removal of the digits 2nd toe. Residual packing material and/or of resorbable packing material that was seen within the surgical bed no longer visible. There does appear to be subtle periosteal reaction along the lateral aspect of the residual proximal 1st metatarsal which the may represent postoperative sequela however the possibility of early osteomyelitis cannot be excluded. Questionable skin surface/subcutaneous ulceration medial soft tissues at the level of the amputation site.
--- NOTE | 2016-11-14 15:43 | CP.PCM.HP ---
History of Present Illness - History of Present Illness History of Present Illness: Hx taken from patient PMD: Dr Ren Castro 46 y/o M with PMhx of [id number] controlled with Janumet presented to ED as per Podiatry recommendations after office visit yesterday. Patient had R/1st toe amputation about 1 month ago for complicated diabetic ulcer, he denies pain, paresthesias, vomiting, nausea dizziness, is afebrile, but wound has not been healing well and Dr Page took sample for WCx in the office that according to the patient were positive for "2 types of bacteria". As he was taking Keflex PO since DC from [facility] more than 2 weeks ago, he was advised to come to [facility] for wound debridement and possible IV abx treatment. Patient has Hx of R/2nd toe amputation around 1 year ago that healed well with home IV abx, when he was DC from [facility] that time. Case discussed with Podiatry resident. ED course: Vital signs WNL except BP 164/92 Zosyn 4.5g IV once Insulin regular 4 units SQ stat Bcx, EKG CXR WNL Foot X/Ray: Periosteal reaction lateral aspect of 1st residual metatarsal. Possible Sx sequela vs Osteomyelitis Insulin NKDA Home meds: Janumet 50/1000mg BID Keflex 500mg BID PMHx: DMtype2 SHx: Denies x3. Works at [employer]) SxHx: Previous amputations as per HPI Present on Admission - Present on Admission Any Indicators Present on Admission: Yes History Surgical Site Infection Following: Orthopedic Procedures Review of Systems - Constitutional Constitutional: absent: Anorexia, Malaise - EENT Eyes: absent: Change in Vision - Cardiovascular Cardiovascular: absent: Chest Pain, Dyspnea, Palpitations, Pedal Edema - Respiratory Respiratory: absent: Wheezing - Gastrointestinal Gastrointestinal: absent: Constipation, Diarrhea - Genitourinary Genitourinary: absent: Nocturia, Urinary Incontinence - Musculoskeletal Musculoskeletal: As Per HPI - Integumentary Integumentary: As Per HPI - Neurological Neurological: absent: Dizziness - Psychiatric Psychiatric: absent: Anxiety Past Patient History - Tetanus Immunizations Tetanus Immunization: Unknown - Past Medical History & Family History Past Medical History?: Yes - Past Social History Alcohol: None Drugs: Denies - CARDIAC Hx Cardiac Disorders: No - PULMONARY Hx Respiratory Disorders: No - NEUROLOGICAL Hx Neurological Disorder: No - RENAL Hx Chronic Kidney Disease: No - ENDOCRINE/METABOLIC Hx Diabetes Mellitus Type 2: Yes - MUSCULOSKELETAL/RHEUMATOLOGICAL Hx Falls: No - PSYCHIATRIC Hx Substance Use: No - SURGICAL HISTORY Hx Surgeries: No Other/Comment: rt foot SX 1 month ago - ANESTHESIA Hx Anesthesia: Yes Hx Anesthesia Reactions: No Meds Allergies/Adverse Reactions: Allergies Allergy/AdvReac Type Severity Reaction Status Date / Time No Known Allergies Allergy Verified 11/14/16 11:53 Physical Exam - Constitutional Appears: Non-toxic, No Acute Distress - Head Exam Head Exam: NORMAL INSPECTION - Eye Exam Eye Exam: PERRL - ENT Exam ENT Exam: Mucous Membranes Moist - Respiratory Exam Respiratory Exam: Clear to Auscultation Bilateral, NORMAL BREATHING PATTERN - Cardiovascular Exam Cardiovascular Exam: REGULAR RHYTHM, +S1, +S2. absent: Systolic Murmur - GI/Abdominal Exam GI & Abdominal Exam: Normal Bowel Sounds, Soft - Extremities Exam Extremities exam: Negative for: calf tenderness Additional comments: R/Foot covered with dressing. 3, 4 and 5 finger exposed with no apparent neurovascular compromise - Neurological Exam Neurological exam: Alert, Oriented x3 - Psychiatric Exam Psychiatric exam: Normal Affect, Normal Mood - Skin Skin Exam: Warm Results - Vital Signs Recent Vital Signs: Last Vital Signs Temp 98.6 F 11/14/16 11:54 Pulse 84 11/14/16 11:54 Resp 19 11/14/16 11:54 BP 164/92 H 11/14/16 11:54 Pulse Ox 100 11/14/16 13:59 - Labs Result Diagrams: 11/14/16 12:55 11/14/16 12:55 Assessment & Plan - Assessment and Plan (Free Text) Assessment: 46 y/o M with PMhx of DMtype2 and s/p Toe amputation presents for complicated toe wound -Wound infection R/1st toe rule out Osteomyelitis s/p 1st toe metatarsal amputation 1 month ago wound healing delay WCx positive: As per Podiatry resident, Dr Page will bring sensitivity results tomorrow S/P Zosyn 4.5g IV NPO after midnight Scheduled wound debridement tomorrow morning Foot Xray: Osteo vs Sx sequela: Please read full report Rigo start patient on Vanco and Zosyn IV for poss Osteo pending sensitivity and ID recs ID consulted(Dr Quinonez) will f/u recs Podiatry Consult(Dr Page) -[id number] Hold Janumet 50/1000mg BID for now Accuchecks ISS low dose C/w Lipitor 20mg daily Start Lisinopril 5 mg daily F/U Lipid panel, HgbA1c for AM -Hx of HTN 164/93 on admission Not on any BP home meds Will monitor Start Lisinopril 5 mg daily -Prophylactic measures Florastor 250mg BID SCDs for now
[2016-11-14] MEDS ORDERED: Dextrose 50% SYRINGE Inj (50 ml) IV PRN (16:10)
[2016-11-14] MEDS ORDERED: Glucagon Recombinant 1 mg Inj IM PRN (16:10)
--- NOTE | 2016-11-14 17:20 | CP.PCM.CON ---
History of Present Illness - History of Present Illness History of Present Illness: 46 y/o male with PMHx of DM presents to the ED today for right foot ulceration. Per patient he was sent to ED today after being seen by PMD . He had an amputation of the hallux 2 weeks ago, and it has now been draining a lot. Denies n/v/f/c/sob/cp. Says he had his right 2nd digit amputated in 2013 for a similar problem. Denies any other problems at this time. on last admission grew [facility] was treated with at least 7 days IV antibiotics post op s/p amputation denies fever chills p[ain - has nonhealing ulcer right foot Review of Systems - Constitutional Constitutional: absent: As Per HPI, Anorexia, Chills, Daytime Sleepiness, Excessive Sweating, Fatigue, Fever, Frequent Falls, Headache, Increased Appetite , Lethargy, Malaise, Night Sweats, Snoring, Sleep Apnea, Weight Gain, Weight Loss, Weakness, Other - EENT Eyes: absent: As Per HPI, Blind Spots, Blurred Vision, Change in Vision, Decreased Night Vision, Diplopia, Discharge, Dry Eye, Exophthalmos, Floaters, Irritation, Itchy Eyes, Loss of Peripheral Vision, Pain, Photophobia, Requires Corrective Lenses, Sees Flashes, Spots in Vision, Tunnel Vision, Other Visual Disturbances, Loss of Vision, Other Ears: absent: As Per HPI, Decreased Hearing, Ear Discharge, Ear Pain, Tinnitus, Abnormal Hearing, Disequilibrium, Dizziness, Other Nose/Mouth/Throat: absent: As Per HPI, Epistaxis, Nasal Congestion, Nasal Discharge, Nasal Obstruction, Nasal Trauma, Nose Pain, Post Nasal Drip, Sinus Pain, Sinus Pressure, Bleeding Gums, Change in Voice, Dental Pain, Dry Mouth, Dysphagia, Halitosis, Hoarsness, Lip Swelling, Mouth Lesions, Mouth Pain, Odynophagia, Sore Throat, Throat Swelling, Tongue Swelling, Facial Pain, Neck Pain, Neck Mass, Other - Cardiovascular Cardiovascular: absent: As Per HPI, Acrocyanosis, Chest Pain, Chest Pain at Rest , Chest Pain with Activity, Claudication, Diaphoresis, Dyspnea, Dyspnea on Exertion, Edema, Irregular Heart Rhythm, Pain Radiating to Arm/Neck/Jaw, Leg Edema, Leg Ulcers, Lightheadedness, Orthopnea, Palpitations, Paroxysmal Nocturnal Dyspnea, Pedal Edema, Radiating Pain, Rapid Heart Rate, Slow Heart Rate, Syncope, Other - Respiratory Respiratory: absent: As Per HPI, Cough, Dyspnea, Hemoptysis, Dyspnea on Exertion , Wheezing, Snoring, Stridor, Pain on Inspiration, Chest Congestion, Excessive Mucous Production, Change in Mucous Color, Pain with Coughing, Other - Gastrointestinal Gastrointestinal: absent: As Per HPI, Abdominal Pain, Belching, Bloating, Change in Bowel Habits, Change in Stool Character, Coffee Ground Emesis, Constipation, Cramping, Diarrhea, Dyspepsia, Dysphagia, Early Satiety, Excessive Flatus, Fecal Incontinence, Heartburn, Hematemesis, Hematochezia, Loose Stools, Melena, Nausea, Odynophagia, Temesmus, Vomiting, Other - Genitourinary Genitourinary: absent: As Per HPI, Change in Urinary Stream, Difficulty Urinating, Dysuria, Flank Pain, Hematuria, Pyuria, Nocturia, Urinary Incontinence, Urinary Frequency, Urinary Hesitance, Urinary Urgency, Voiding Freq/Small Amts, Freq UTI, Hx Renal/Bladder Calculi, Hx /Renal Surgery, Bladder Distension, Other - Musculoskeletal Musculoskeletal: As Per HPI - Integumentary Integumentary: As Per HPI, Skin Pain, Wounds - Neurological Neurological: As Per HPI, Sensory Deficit - Psychiatric Psychiatric: absent: As Per HPI, Abnormal Sleep Pattern, Anhedonia, Anxiety, Auditory Hallucinations, Behavioral Changes, Change in Appetite, Change in Libido, Confusion, Depression, Difficulty Concentrating, Hallucinations, Homicidal Ideation, Hopelessness, Irritability, Memory Loss, Mood Swings, Panic Attacks, Paranoia, Suicidal Ideation, Visual Hallucinations, Tactile Hallucinations, Other - Endocrine Endocrine: absent: As Per HPI, Change in Body Appearance, Change in Libido, Cold Intolorance, Deepening of Voice, Excessive Sweating, Fatigue, Flushing, Heat Intolorance, Increase in Ring/Shoe/Hat Size, Palpitations, Polydipsia, Polyphagia, Polyuria, Other - Hematologic/Lymphatic Hematologic: absent: As Per HPI, Easy Bleeding, Easy Bruising, Lymphadenopathy, Other Past Patient History - Tetanus Immunizations Tetanus Immunization: Unknown - Past Medical History & Family History Past Medical History?: Yes - Past Social History Alcohol: None Drugs: Denies - CARDIAC Hx Cardiac Disorders: No - PULMONARY Hx Respiratory Disorders: No - NEUROLOGICAL Hx Neurological Disorder: No - RENAL Hx Chronic Kidney Disease: No - ENDOCRINE/METABOLIC Hx Diabetes Mellitus Type 2: Yes - MUSCULOSKELETAL/RHEUMATOLOGICAL Hx Falls: No - PSYCHIATRIC Hx Substance Use: No - SURGICAL HISTORY Hx Surgeries: No Other/Comment: rt foot SX 1 month ago - ANESTHESIA Hx Anesthesia: Yes Hx Anesthesia Reactions: No Meds Allergies/Adverse Reactions: Allergies Allergy/AdvReac Type Severity Reaction Status Date / Time No Known Allergies Allergy Verified 11/14/16 11:53 - Medications Medications: Current Medications Atorvastatin Calcium (Lipitor) 20 mg PO DAILY [facility] Dextrose (Dextrose 50% Inj) 0 ml IV STAT PRN; Protocol PRN Reason: Hyglycemia Protocol Dextrose (Glutose 15) 0 gm PO ONCE PRN; Protocol PRN Reason: Hypoglycemia Protocol Glucagon (Glucagen Diagnostic Kit) 0 mg IM STAT PRN; Protocol PRN Reason: Hypoglycemia Protocol Piperacillin Sod/Tazobactam (Sod 3.375 gm/ Sodium Chloride) 100 mls @ 100 mls/ hr IVPB Q6 [facility] Vancomycin HCl 1 gm/ Sodium (Chloride) 250 mls @ 166.667 mls/hr IVPB Q12 [facility] Insulin Human Regular (Humulin R) 0 units SC ACHS [facility] PRN Reason: Protocol Lisinopril (Zestril) 5 mg PO DAILY [facility] Physical Exam - Constitutional Appears: Non-toxic, Chronically Ill - Head Exam Head Exam: NORMOCEPHALIC - Eye Exam Eye Exam: PERRL. absent: Scleral icterus - ENT Exam ENT Exam: Mucous Membranes Dry, Normal External Ear Exam - Neck Exam Neck exam: Negative for: Lymphadenopathy, Thyromegaly - Respiratory Exam Respiratory Exam: Decreased Breath Sounds - Cardiovascular Exam Cardiovascular Exam: REGULAR RHYTHM, +S1, +S2 - GI/Abdominal Exam GI & Abdominal Exam: Diminished Bowel Sounds, Soft. absent: Tenderness - Rectal Exam Rectal Exam: Deferred - Exam Exam: NORMAL INSPECTION - Extremities Exam Extremities exam: Positive for: pedal edema, pedal pulses present. Negative for : calf tenderness, tenderness Additional comments: large ulcer right foot on dorsum surface of 1st metatarsal area without foul smell or discharge - Back Exam Back exam: absent: CVA tenderness (L), CVA tenderness (R) - Neurological Exam Neurological exam: Alert, CN II-XII Intact, Oriented x3, Reflexes Normal Additional comments: decreased sensation - Psychiatric Exam Psychiatric exam: Normal Mood - Skin Skin Exam: Dry Results - Vital Signs Recent Vital Signs: Last Vital Signs Temp 98.6 F 11/14/16 11:54 Pulse 84 11/14/16 11:54 Resp 19 11/14/16 11:54 BP 164/92 H 11/14/16 11:54 Pulse Ox 100 11/14/16 16:55 - Labs Result Diagrams: 11/14/16 12:55 11/14/16 12:55 Assessment & Plan (1) Amputated toe Status: Acute Priority: Medium (2) Diabetic foot infection Status: Acute (3) Osteomyelitis of foot Status: Acute (4) Essential (primary) hypertension Status: Chronic Priority: Medium (5) Non-insulin dependent type 2 diabetes mellitus Status: Chronic - Assessment and Plan (Free Text) Assessment: nonhealing ulcer r/o OM right foot will need long term acute care registered nurse IV antibiotics possible switch to nafcillin ? pending cultures consider repeat MRI/ bone scan but may neot guide changer - high risk for TMA or worse
[2016-11-14] MEDS: Insulin Regular 100 units/ml SC SCH ×2 (17:30→21:57)
[2016-11-14] MEDS: Piperacillin/Tazobact 3.375 GM in Sodium Chloride 0.9% 100 ML IVPB SCH (22:26)
[2016-11-15] MEDS: Piperacillin/Tazobact 3.375 GM in Sodium Chloride 0.9% 100 ML IVPB SCH ×4 (03:40→20:58)
--- NOTE | 2016-11-15 06:29 | CP.PCM.PN ---
Subjective - Date & Time of Evaluation Date of Evaluation: 11/15/16 Time of Evaluation: 06:27 - Subjective Subjective: 46 year old male was seen resting comfortably at bedside regarding right foot ulceration. Patient currently denies any pain. Patient is aware he is going for a wound debridement today. NPO status confirmed. He denies any n/v/f/c/sob /cp. Objective - Vital Signs/Intake and Output Vital Signs (last 24 hours): Temp Pulse Resp BP Pulse Ox 98.3 F 60 19 125/78 99 11/15/16 00:51 11/15/16 00:51 11/15/16 00:51 11/15/16 00:51 11/15/16 00:51 - Medications Medications: Current Medications Atorvastatin Calcium (Lipitor) 20 mg PO DAILY [facility] Dextrose (Dextrose 50% Inj) 0 ml IV STAT PRN; Protocol PRN Reason: Hyglycemia Protocol Dextrose (Glutose 15) 0 gm PO ONCE PRN; Protocol PRN Reason: Hypoglycemia Protocol Glucagon (Glucagen Diagnostic Kit) 0 mg IM STAT PRN; Protocol PRN Reason: Hypoglycemia Protocol Piperacillin Sod/Tazobactam (Sod 3.375 gm/ Sodium Chloride) 100 mls @ 100 mls/ hr IVPB Q6 [facility] Last Admin: 11/15/16 03:40 Dose: 100 mls/hr Vancomycin HCl 1 gm/ Sodium (Chloride) 250 mls @ 166.667 mls/hr IVPB Q12 [facility] Last Admin: 11/14/16 20:49 Dose: 166.667 mls/hr Insulin Human Regular (Humulin R) 0 units SC ACHS [facility] PRN Reason: Protocol Last Admin: 11/14/16 21:57 Dose: Not Given Lisinopril (Zestril) 5 mg PO DAILY [facility] Last Admin: 11/14/16 19:45 Dose: 5 mg - Constitutional Appears: Well, Non-toxic, No Acute Distress - Extremities Exam Additional comments: Lower extremity focused exam: dressing clean,dry, intact to RLE CFT < 3 seconds to all digits - Neurological Exam Neurological Exam: Alert, Awake, Oriented x3 - Psychiatric Exam Psychiatric exam: Normal Affect, Normal Mood Assessment and Plan - Assessment and Plan (Free Text) Assessment: 46 year old male with right foot non-healing ulcer Plan: Pt was seen and examined at bedside Pt NPO status was confirmed All Pre-op testing and clearance was in the chart Pt has exhausted all conservative treatment at this time and is opting for surgical intervention Pt was explained procedure and post-operative course All pt's questions were answered to satisfaction No guarantees were made Pt understands all risks, benefits and complications of procedure Pt will follow-up with
[2016-11-15] MEDS: Insulin Regular 100 units/ml SC SCH ×4 (06:52→22:35)
[2016-11-15] MEDS ORDERED: Lidocaine Hydrochloride 5 ML INJ ONE (07:04)
[2016-11-15] MEDS ORDERED: Midazolam 2 MG/2 ML VIAL ONE (07:04)
[2016-11-15] MEDS ORDERED: Propofol 10 mg/ml Inj (20 ML) ONE ×2 (07:04→07:54)
[2016-11-15] MEDS ORDERED: Mineral Oil Light Sterile 25 ml ONE (07:11)
[2016-11-15] MEDS ORDERED: Lidocaine 1% Inj (20ml) ONE (07:12)
[2016-11-15] MEDS ORDERED: Bupivacaine 0.5% Inj(30mL) ONE (07:12)
[2016-11-15] MEDS ORDERED: Sodium Chloride 0.9% 200 ML IV ONE (08:00)
[2016-11-15 08:07] LABS: CHOLESTEROL 156 mg/dL (0-199)
[2016-11-15] MEDS ORDERED: Vancomycin 1 g Inj IVPB ONE (08:15)
[2016-11-15] MEDS ORDERED: Iodoform 1/4inx15ft BOT EXT ONE (08:45)
[2016-11-15] MEDS ORDERED: HYDROmorphone 0.5 mg/0.5 ml ISec IVP PRN (08:58)
[2016-11-15] MEDS ORDERED: Oxycodone/Acetaminophen 5/325 mg Tab PO PRN ×2 (09:00)
--- NOTE | 2016-11-15 09:04 | PCM.SURG1 ---
Surgeon's Initial Post Op Note - Surgeon's Notes Surgeon: Dr. Page DPM Clerk Cashier: Dr. Jorge GUSMANM PGY-1, Dr. Hastings PGY-1, Jaky MS-4 Type of Anesthesia: IV Sedation Pre-Operative Diagnosis: 1. abcess right foot. 2. rule out osteomyelitis right foot Operative Findings: see dictation. I:1:1 mixture of 1% lidocaine plain and 0.5 % marcaine plain Post-Operative Diagnosis: same Operation Performed: 1. I and D of abscess of right foot. 2. Bone biopsy 1st metatarsal right foot Specimen/Specimens Removed: bone,deep tissue cultures bone and soft tissue Estimated Blood Loss: EBL {In ML}: 2 Blood Products Given: N/A Drains Used: No Drains Post-Op Condition: Good Date of Surgery/Procedure: 11/15/16 Time of Surgery/Procedure: 09:05
[2016-11-15] MEDS ORDERED: Sodium Chloride 0.9% 1,000 ML IV ONE (10:20)
--- NOTE | 2016-11-15 10:23 | CP.PCM.PN ---
Subjective - Date & Time of Evaluation Date of Evaluation: 11/15/16 Time of Evaluation: 07:05 - Subjective Subjective: 46 y/o admitted for non healing toe ulcer seen at bedside in not acute distress , patient is leaving for scheduled wound debridement now. He states he feels good. Afebrile. Denies vomitign, nausea, CP, SOB or palpitations. Denies pain in the foot. Objective - Vital Signs/Intake and Output Vital Signs (last 24 hours): Temp Pulse Resp BP Pulse Ox 98 F 58 L 20 96/58 L 100 11/15/16 08:54 11/15/16 08:54 11/15/16 08:54 11/15/16 08:54 11/15/16 09:50 Intake and Output: 11/15/16 11/15/16 06:59 18:59 Intake Total 250 Balance 250 - Medications Medications: Current Medications Acetaminophen (Tylenol 325mg Tab) 650 mg PO Q6 PRN PRN Reason: Pain, Mild (1-3) Atorvastatin Calcium (Lipitor) 20 mg PO DAILY [facility] Last Admin: 11/15/16 08:52 Dose: Not Given Dextrose (Dextrose 50% Inj) 0 ml IV STAT PRN; Protocol PRN Reason: Hyglycemia Protocol Dextrose (Glutose 15) 0 gm PO ONCE PRN; Protocol PRN Reason: Hypoglycemia Protocol Glucagon (Glucagen Diagnostic Kit) 0 mg IM STAT PRN; Protocol PRN Reason: Hypoglycemia Protocol Hydromorphone HCl (Dilaudid) 0.5 mg IVP Q10M PRN PRN Reason: Pain, moderate (4-7) Stop: 11/15/16 10:59 Piperacillin Sod/Tazobactam (Sod 3.375 gm/ Sodium Chloride) 100 mls @ 100 mls/ hr IVPB Q6 [facility] Last Admin: 11/15/16 03:40 Dose: 100 mls/hr Vancomycin HCl 1 gm/ Sodium (Chloride) 250 mls @ 166.667 mls/hr IVPB Q12 [facility] Last Admin: 11/15/16 08:54 Dose: 100 mls Sodium Chloride (Sodium Chloride 0.9%) 1,000 mls @ 100 mls/hr IV .Q10H [facility] Insulin Human Regular (Humulin R) 0 units SC ACHS [facility]ELE[facility] PRN Reason: Protocol Last Admin: 11/15/16 06:52 Dose: Not Given Ketorolac Tromethamine (Toradol) 30 mg IVP ONCE PRN PRN Reason: Pain, Mild (1-3) Stop: 11/15/16 10:59 Lisinopril (Zestril) 5 mg PO DAILY [facility] Last Admin: 11/15/16 08:53 Dose: Not Given Oxycodone/Acetaminophen (Percocet 5/325 Mg Tab) 1 tab PO Q6 PRN PRN Reason: Pain, moderate (4-7) Stop: 11/18/16 09:01 Oxycodone/Acetaminophen (Percocet 5/325 Mg Tab) 2 tab PO Q6 PRN PRN Reason: Pain, severe (8-10) Stop: 11/18/16 09:01 - Constitutional Appears: Non-toxic, No Acute Distress - Head Exam Head Exam: NORMAL INSPECTION - Eye Exam Eye Exam: PERRL - ENT Exam ENT Exam: Mucous Membranes Moist - Respiratory Exam Respiratory Exam: Clear to Ausculation Bilateral, NORMAL BREATHING PATTERN - Cardiovascular Exam Cardiovascular Exam: REGULAR RHYTHM, +S1, +S2. absent: Irregular Rhythm - GI/Abdominal Exam GI & Abdominal Exam: Soft, Normal Bowel Sounds. absent: Tenderness - Extremities Exam Extremities Exam: absent: Calf Tenderness Additional comments: R/foot covered with dressing. Exposed toes with no apparent neurovascular compromise. - Neurological Exam Neurological Exam: Alert, Awake, Oriented x3 - Psychiatric Exam Psychiatric exam: Normal Affect, Normal Mood - Skin Skin Exam: Normal Color, Warm Assessment and Plan - Assessment and Plan (Free Text) Assessment: 46 y/o M with PMhx of DMtype2 and s/p Toe amputation presents for complicated toe wound -Wound infection R/1st toe rule out Osteomyelitis s/p 1st toe metatarsal amputation 1 month ago wound healing delay WCx positive For wound debridement today Foot Xray: Osteo vs Sx sequela: Please read full report C/w Vanco and Zosyn IV for poss Osteo pending sensitivity and ID recs ID consulted(Dr Quinonez) will f/u recs Podiatry Consult(Dr Page) -[id number] Hold Janumet 50/1000mg BID for now Accuchecks ISS low dose C/w Lipitor 20mg daily Start Lisinopril 5 mg daily Lipid panel WNL F/U HgbA1c -Hx of HTN 164/93 on admission. WNL since Not on any BP home meds Will monitor Start Lisinopril 5 mg daily -Prophylactic measures Florastor 250mg BID SCDs for now
--- NOTE | 2016-11-15 15:05 | RAD ---
PROCEDURE: Right foot dated HISTORY: s/p right foot surgery COMPARISON: 11/15/2016. Comparison made with prior study dated 11/14/2016. FINDINGS: BONES: Re- demonstrated are transmetatarsal amputation changes proximal 1/2 -- 1/3 of the 1st metatarsal also There has been interval apparent debridement of the soft tissues of the stump with bubbles of air and possibly packing material within the soft tissues. Also again noted are amputation changes of the phalanges of the 2nd toe. No other significant change. JOINTS: Normal. SOFT TISSUES: As above OTHER FINDINGS: None. IMPRESSION: Re- demonstrated are transmetatarsal amputation changes proximal 1/2 -- 1/3 of the 1st metatarsal also There has been interval apparent debridement of the soft tissues of the stump with bubbles of air and possibly packing material within the soft tissues. Also again noted are amputation changes of the phalanges of the 2nd toe. No other significant change.
--- NOTE | 2016-11-15 16:17 | OP ---
PROCEDURE DATE: 11/15/2016 SURGEON: Sandip Page DPM, FACFAS CHIEF MEDICAL TECHNOLOGIST: Char Patel DPM, PGY-1, Lilli Hastings DPM, PGY-1 ANESTHESIOLOGIST: Dr. Espinoza. ANESTHESIA: IV sedation with local. PREOPERATIVE DIAGNOSES: 1. Infected ulcer of right foot. 2. Rule out osteomyelitis of right foot. 3. Diabetes POSTOPERATIVE DIAGNOSES: 1. Abscess of right foot. 2. Rule out osteomyelitis of right foot. 3. Infected ulcer of right foot. 4. Diabetes PROCEDURE PERFORMED: 1. I and D of abscess of the right foot. 2. Bone biopsy of the right first metatarsal. 3. Debridement of ulcer/wound deep right foot. INDICATIONS: The patient is a 46-year-old male with the above diagnoses. The patient is status post partial 1st ray resection right foot. The distal surgical site developed a deep , non healing ulceration with watery discharge and wound culture revealed infection. The patient signed the consent after careful explanation of risks, benefits, complications and alternatives for surgical procedure. No guarantees were given nor implied. PREPARATION: The patient was brought into the operating room and placed on the operating room table in a supine position. Time-out was performed for identification of correct patient and procedure. After induction of IV sedation , the patient received a total of 18 mL of a 1:1 mixture of 0.5% Marcaine plain and 1% lidocaine plain in a local block fashion to the right forefoot. Once local anesthesia was achieved, the right foot was then prepped and draped in a normal sterile manner. No tourniquet was used during the procedure. PROCEDURE #1: Incision and drainage of abscess of right foot. Attention was directed to the distal first ray of the right foot where an ulceration measuring approximately 3 cm x 1.5 cm x 0.2 cm located at the stump. It was noted that the ulcer tunneled at the 6 o'clock position and there was watery discharge noted from the medial aspect of the wound. Next, utilizing a #15 blade, an approximately 4 cm incision was made extending from the tunnel to the ulcer. The incision was deepened through the subcutaneous tissue using a #15 blade. All bleeders were cauterized as necessary. The wound then measured 7 cm x 1.5 cm x 1.8 cm. A wound culture was obtained and passed off the field and sent for culture and sensitivity. All nonviable tissue was then excisionally debrided using a #15 blade with pickups until fresh healthy tissue appeared and the non-viable tissue was passed off the field. PROCEDURE #2: Debridement of ulcer/wound deep right foot. The entire ulcer/ wound was inspected and debrided down to bone level removing all devitalized tissue. The wound then measured 7 cm x 1.5 cm x 1.8 cm. A wound culture was obtained and passed off the field and sent for culture and sensitivity. All nonviable tissue was then excisionally debrided using a #15 blade with pickups until fresh healthy tissue appeared and the non-viable tissue was passed off the field. Bone biopsy of right first metatarsal. Next, utilizing a rongeur, a piece of the first metatarsal was taken and passed off the field and sent for pathology. Next, utilizing a Simpulse of 3 liters of normal sterile saline and bacitracin , the area was ligated. Next, deep wound and deep bone cultures were taken and passed off the surgical site and sent for pathology. The surgical site was then packed with 1/4 inch Iodosorb packing, sterile gauze, dry sterile dressing and Sabino. POSTOPERATIVE CONDITION: The patient tolerated the anesthesia and procedure well and was escorted to the recovery room with vital signs stable and neurovascular status intact to the right foot. The patient will be seen and followed by Dr. Page while the patient remains in-house. CHAR PATEL DPM Sandip Page DPM cc: [id number] TT: 11/15/2016 16:17:00 mary SALAZAR
[2016-11-16] MEDS: Piperacillin/Tazobact 3.375 GM in Sodium Chloride 0.9% 100 ML IVPB SCH ×4 (04:17→22:30)
[2016-11-16] MEDS: Insulin Regular 100 units/ml SC SCH ×4 (07:23→22:10)
[2016-11-16 07:32] LABS: HEMATOCRIT 33.5 % (35.0-51.0); MEAN CELL VOLUME 79.5 fl (80.0-94.0); MEAN CORPUSCULAR HEMOGLOBIN 26.5 pg (27.0-31.0); MEAN CORPUSCULAR HGB CONC 33.3 g/dL (33.0-37.0); RED CELL DISTRIBUTION WIDTH 15.7 % (11.5-14.5); WHITE BLOOD COUNT 4.7 K/uL (4.8-10.8)
[2016-11-16 07:50] LABS: BLOOD UREA NITROGEN 18 mg/dl (9-20); CARBON DIOXIDE 27 mmol/L (22-30); CHLORIDE 106 mmol/L (98-107); GFR AFRICAN-AMERICAN > 60; GLUCOSE,RANDOM 198 mg/dL (75-110); POTASSIUM 4.1 MMOL/L (3.6-5.0); SODIUM 141 mmol/l (132-148)
--- NOTE | 2016-11-16 08:03 | CP.PCM.PN ---
Subjective - Date & Time of Evaluation Date of Evaluation: 11/16/16 Time of Evaluation: 08:03 - Subjective Subjective: 46 year old male 1 day s/p right foot I and D of abscess and bone biopsy was seen resting comfortably at bedside. Patient states he is feeling well. He denies any pain to his right lower extremity. He has crutches at bedside and a surgical shoe on his RLE. He denies any n/v/f/c/sob/cp. Objective - Vital Signs/Intake and Output Vital Signs (last 24 hours): Temp Pulse Resp BP Pulse Ox 98.4 F 67 20 146/85 98 11/16/16 01:00 11/16/16 01:00 11/16/16 01:00 11/16/16 01:00 11/16/16 01:00 - Medications Medications: Current Medications Acetaminophen (Tylenol 325mg Tab) 650 mg PO Q6 PRN PRN Reason: Pain, Mild (1-3) Atorvastatin Calcium (Lipitor) 20 mg PO DAILY [facility] Last Admin: 11/15/16 08:52 Dose: Not Given Dextrose (Dextrose 50% Inj) 0 ml IV STAT PRN; Protocol PRN Reason: Hyglycemia Protocol Dextrose (Glutose 15) 0 gm PO ONCE PRN; Protocol PRN Reason: Hypoglycemia Protocol Enoxaparin Sodium (Lovenox) 40 mg SC DAILY [facility] PRN Reason: Protocol Glucagon (Glucagen Diagnostic Kit) 0 mg IM STAT PRN; Protocol PRN Reason: Hypoglycemia Protocol Piperacillin Sod/Tazobactam (Sod 3.375 gm/ Sodium Chloride) 100 mls @ 100 mls/ hr IVPB Q6 [facility] Last Admin: 11/16/16 04:17 Dose: 100 mls/hr Vancomycin HCl 1 gm/ Sodium (Chloride) 250 mls @ 166.667 mls/hr IVPB Q12 [facility] Last Admin: 11/15/16 22:32 Dose: 166.667 mls/hr Sodium Chloride (Sodium Chloride 0.9%) 1,000 mls @ 100 mls/hr IV .Q10H [facility] Insulin Human Regular (Humulin R) 0 units SC ACHS [facility] PRN Reason: Protocol Last Admin: 11/16/16 07:23 Dose: 2 units Lisinopril (Zestril) 5 mg PO DAILY [facility] Last Admin: 11/15/16 08:53 Dose: Not Given Oxycodone/Acetaminophen (Percocet 5/325 Mg Tab) 1 tab PO Q6 PRN PRN Reason: Pain, moderate (4-7) Stop: 11/18/16 09:01 Oxycodone/Acetaminophen (Percocet 5/325 Mg Tab) 2 tab PO Q6 PRN PRN Reason: Pain, severe (8-10) Stop: 11/18/16 09:01 - Labs Labs: 11/16/16 07:00 11/16/16 07:00 - Constitutional Appears: Well, Non-toxic, No Acute Distress - Extremities Exam Additional comments: Lower extremity focused exam: Vasc: DP and PT pulses faintly palpable, TG wnl, CFT < 3 sec to all digits, mild edema noted to the distal aspect of right foot neuro: gross sensation diminished b/l derm: Open wound noted to the dorsum of the 1st metatarsal head on the right measuring approximately 7 cm by 1.8 cm by 1.5 cm with a granular base, slight increase in warmth noted to periwound, no malodor noted, sanguineous drainage noted, no purulence, no probe to bone noted ortho: tenderness on palpation to right 1st metatarsal wound site - Neurological Exam Neurological Exam: Alert, Awake, Oriented x3 - Psychiatric Exam Psychiatric exam: Normal Affect, Normal Mood Assessment and Plan - Assessment and Plan (Free Text) Assessment: 46 year old male 1 day s/p I and D of abscess of right foot and Bone biopsy 1st metatarsal right foot Plan: Pt examined and evaluate in ED Plan discussed w/ Dr. Page Chart, labs, vitals reviewed Continue Iv abx per ID Bone and wound culture pending results of bone biopsy pending to rule out OM Right foot wound site was irrigated with copious amounts of normal sterile saline, packed with 1/2 inch iodoform packing, dressed with 4x4 gauze, ABD, DSD , TAMMY Patient to remain non-WB to RLE Dressing to be changed daily Patient to OR Saturday at 7:45 am for a delayed primary closure podiatry will continue to follow patient while in house
[2016-11-16] MEDS ORDERED: Enoxaparin 40 mg Syringe SC SCH (09:00)
--- NOTE | 2016-11-16 12:45 | CP.PCM.PN ---
Subjective - Date & Time of Evaluation Date of Evaluation: 11/16/16 Time of Evaluation: 08:00 - Subjective Subjective: s/p right foot I and D of abscess and bone biopsy c/s showing gram + cocci may need 6 weeks rx Objective - Vital Signs/Intake and Output Vital Signs (last 24 hours): Temp Pulse Resp BP Pulse Ox 98.6 F 72 20 126/82 99 11/16/16 08:24 11/16/16 08:43 11/16/16 08:24 11/16/16 08:43 11/16/16 08:24 - Medications Medications: Current Medications Acetaminophen (Tylenol 325mg Tab) 650 mg PO Q6 PRN PRN Reason: Pain, Mild (1-3) Atorvastatin Calcium (Lipitor) 20 mg PO DAILY [facility] Last Admin: 11/16/16 08:42 Dose: 20 mg Dextrose (Dextrose 50% Inj) 0 ml IV STAT PRN; Protocol PRN Reason: Hyglycemia Protocol Dextrose (Glutose 15) 0 gm PO ONCE PRN; Protocol PRN Reason: Hypoglycemia Protocol Glucagon (Glucagen Diagnostic Kit) 0 mg IM STAT PRN; Protocol PRN Reason: Hypoglycemia Protocol Piperacillin Sod/Tazobactam (Sod 3.375 gm/ Sodium Chloride) 100 mls @ 100 mls/ hr IVPB Q6 [facility] Last Admin: 11/16/16 09:46 Dose: 100 mls/hr Vancomycin HCl 1 gm/ Sodium (Chloride) 250 mls @ 166.667 mls/hr IVPB Q12 [facility] Last Admin: 11/16/16 10:57 Dose: 166.667 mls/hr Sodium Chloride (Sodium Chloride 0.9%) 1,000 mls @ 100 mls/hr IV .Q10H [facility] Insulin Human Regular (Humulin R) 0 units SC ACHS [facility]ELE[facility] PRN Reason: Protocol Last Admin: 11/16/16 07:23 Dose: 2 units Lisinopril (Zestril) 5 mg PO DAILY [facility] Last Admin: 11/16/16 08:43 Dose: 5 mg Oxycodone/Acetaminophen (Percocet 5/325 Mg Tab) 1 tab PO Q6 PRN PRN Reason: Pain, moderate (4-7) Stop: 11/18/16 09:01 Oxycodone/Acetaminophen (Percocet 5/325 Mg Tab) 2 tab PO Q6 PRN PRN Reason: Pain, severe (8-10) Stop: 11/18/16 09:01 - Labs Labs: 11/16/16 07:00 11/16/16 07:00 - Constitutional Appears: Non-toxic, Cachectic, Chronically Ill - Head Exam Head Exam: NORMOCEPHALIC - Eye Exam Eye Exam: PERRL. absent: Scleral icterus - ENT Exam ENT Exam: Mucous Membranes Dry - Neck Exam Neck Exam: absent: Lymphadenopathy - Respiratory Exam Respiratory Exam: Decreased Breath Sounds, Rhonchi - Cardiovascular Exam Cardiovascular Exam: REGULAR RHYTHM, +S1, +S2 - GI/Abdominal Exam GI & Abdominal Exam: Distended, Soft. absent: Tenderness - Rectal Exam Rectal Exam: Deferred - Exam Exam: NORMAL INSPECTION - Extremities Exam Extremities Exam: absent: Pedal Edema - Back Exam Back Exam: absent: CVA tenderness (L), CVA tenderness (R) - Neurological Exam Neurological Exam: Alert, Awake, Oriented x3 - Psychiatric Exam Psychiatric exam: Normal Mood - Skin Skin Exam: Dry Assessment and Plan (1) Amputated toe Status: Acute (2) Diabetic foot infection Status: Acute (3) Osteomyelitis of foot Status: Acute (4) Essential (primary) hypertension Status: Chronic (5) Non-insulin dependent type 2 diabetes mellitus Status: Chronic
--- NOTE | 2016-11-16 13:06 | CP.PCM.PN ---
Subjective - Date & Time of Evaluation Date of Evaluation: 11/16/16 Time of Evaluation: 09:30 - Subjective Subjective: 46 y/o M with PMHx of DMtype2, HTN admitted for complication of stump seen at bedside in not acute distress, patient denies pain, dizziness, CP, calf pain or palpitations. Afebrile. Patient receiving daily wound care by Podiatry team. S/ P wound debridement and I&D yesterday Objective - Vital Signs/Intake and Output Vital Signs (last 24 hours): Temp Pulse Resp BP Pulse Ox 98.6 F 72 20 126/82 99 11/16/16 08:24 11/16/16 08:43 11/16/16 08:24 11/16/16 08:43 11/16/16 08:24 - Medications Medications: Current Medications Acetaminophen (Tylenol 325mg Tab) 650 mg PO Q6 PRN PRN Reason: Pain, Mild (1-3) Atorvastatin Calcium (Lipitor) 20 mg PO DAILY [facility] Last Admin: 11/16/16 08:42 Dose: 20 mg Dextrose (Dextrose 50% Inj) 0 ml IV STAT PRN; Protocol PRN Reason: Hyglycemia Protocol Dextrose (Glutose 15) 0 gm PO ONCE PRN; Protocol PRN Reason: Hypoglycemia Protocol Glucagon (Glucagen Diagnostic Kit) 0 mg IM STAT PRN; Protocol PRN Reason: Hypoglycemia Protocol Piperacillin Sod/Tazobactam (Sod 3.375 gm/ Sodium Chloride) 100 mls @ 100 mls/ hr IVPB Q6 [facility] Last Admin: 11/16/16 09:46 Dose: 100 mls/hr Vancomycin HCl 1 gm/ Sodium (Chloride) 250 mls @ 166.667 mls/hr IVPB Q12 [facility] Last Admin: 11/16/16 10:57 Dose: 166.667 mls/hr Sodium Chloride (Sodium Chloride 0.9%) 1,000 mls @ 100 mls/hr IV .Q10H [facility] Insulin Human Regular (Humulin R) 0 units SC ACHS [facility]ELE[facility] PRN Reason: Protocol Last Admin: 11/16/16 07:23 Dose: 2 units Lisinopril (Zestril) 5 mg PO DAILY [facility] Last Admin: 11/16/16 08:43 Dose: 5 mg Oxycodone/Acetaminophen (Percocet 5/325 Mg Tab) 1 tab PO Q6 PRN PRN Reason: Pain, moderate (4-7) Stop: 11/18/16 09:01 Oxycodone/Acetaminophen (Percocet 5/325 Mg Tab) 2 tab PO Q6 PRN PRN Reason: Pain, severe (8-10) Stop: 11/18/16 09:01 - Labs Labs: 11/16/16 07:00 11/16/16 07:00 - Constitutional Appears: Non-toxic, No Acute Distress - Head Exam Head Exam: NORMAL INSPECTION - Eye Exam Eye Exam: PERRL - ENT Exam ENT Exam: Mucous Membranes Moist - Respiratory Exam Respiratory Exam: Clear to Ausculation Bilateral, NORMAL BREATHING PATTERN - Cardiovascular Exam Cardiovascular Exam: REGULAR RHYTHM, +S1, +S2. absent: Gallop - GI/Abdominal Exam GI & Abdominal Exam: Soft, Normal Bowel Sounds - Extremities Exam Extremities Exam: absent: Calf Tenderness, Normal Inspection Additional comments: R/foot covered with dressing. Patient is having daily dressing changes by Podiatry team. - Neurological Exam Neurological Exam: Alert, Awake, Oriented x3 - Psychiatric Exam Psychiatric exam: Normal Affect, Normal Mood - Skin Skin Exam: Warm Assessment and Plan - Assessment and Plan (Free Text) Assessment: 46 y/o M with PMhx of DMtype2 and s/p Toe amputation presents for complicated stump -Complicated stump R/1st toe can't rule out Osteomyelitis s/p 1st toe metatarsal amputation 1 month ago WCx growing Gram+ Daily wound packing Foot Xray: Osteo vs Sx sequela: Please read full report C/w Vanco and Zosyn IV for poss Osteo pending sensitivity and ID recs ID consulted(Dr Quinonez) will f/u recs Podiatry Consult: As per Podiatry patient needs daily wound care with repacking and he will undergo another procedure on Saturday. -Pancitopenia Possible due to complicated wound infection with possible Osteomyelitis Will cont monitor -[id number] Hold Janumet 50/1000mg BID for now Accuchecks ISS low dose C/w Lipitor 20mg daily Start Lisinopril 5 mg daily Lipid panel WNL HgbA1c 7.3 -Hx of HTN 164/93 on admission. WNL since Not on any BP home meds Will monitor c/w Lisinopril 5 mg daily -Prophylactic measures Florastor 250mg BID SCDs for now
[2016-11-16] MEDS: Enoxaparin 40 mg Syringe SC SCH (16:45)
[2016-11-16] MEDS: Sodium Chloride 0.9% 1,000 ML IV SCH (16:47)
--- NOTE | 2016-11-16 18:57 | CARD ---
APPROVED REPORT EKG Measurement Heart [id number] <Conclusion> Sinus rhythm with occasional premature ventricular complexes Minimal voltage criteria for LVH, may be normal variant Nonspecific T wave abnormality Abnormal ECG
[2016-11-17] MEDS: Piperacillin/Tazobact 3.375 GM in Sodium Chloride 0.9% 100 ML IVPB SCH ×4 (04:00→20:59)
[2016-11-17] MEDS: Insulin Regular 100 units/ml SC SCH ×4 (07:07→23:27)
[2016-11-17] MEDS: Enoxaparin 40 mg Syringe SC SCH (09:14)
[2016-11-17 09:41] LABS: HEMATOCRIT 35.1 % (35.0-51.0); MEAN CELL VOLUME 80.4 fl (80.0-94.0); MEAN CORPUSCULAR HEMOGLOBIN 26.7 pg (27.0-31.0); MEAN CORPUSCULAR HGB CONC 33.2 g/dL (33.0-37.0); RED CELL DISTRIBUTION WIDTH 15.1 % (11.5-14.5)
--- NOTE | 2016-11-17 11:10 | CP.PCM.PN ---
Subjective - Date & Time of Evaluation Date of Evaluation: 11/17/16 Time of Evaluation: 10:00 - Subjective Subjective: 46 y/o admitted for complicated stump seen at bedside in not acute distress. Spent night uneventful. Denies leg pain, CP, palpitations, SOB, dizziness. Tolerating PO. NO changes in urination or stools. Patient wants to know for how long he has to be in the hosp. Explained plan in detail with him including scheduled wound closured for next Saturday by [facility] In Home and the likelihood that he will need 6 week of IV abx for pos OM. Objective - Vital Signs/Intake and Output Vital Signs (last 24 hours): Temp Pulse Resp BP Pulse Ox 97.8 F 61 16 134/78 98 11/17/16 09:00 11/17/16 09:14 11/17/16 07:38 11/17/16 09:14 11/17/16 07:38 - Medications Medications: Current Medications Acetaminophen (Tylenol 325mg Tab) 650 mg PO Q6 PRN PRN Reason: Pain, Mild (1-3) Atorvastatin Calcium (Lipitor) 20 mg PO DAILY [facility] Last Admin: 11/17/16 09:14 Dose: 20 mg Dextrose (Dextrose 50% Inj) 0 ml IV STAT PRN; Protocol PRN Reason: Hyglycemia Protocol Dextrose (Glutose 15) 0 gm PO ONCE PRN; Protocol PRN Reason: Hypoglycemia Protocol Enoxaparin Sodium (Lovenox) 40 mg SC DAILY [facility] PRN Reason: Protocol Last Admin: 11/17/16 09:14 Dose: 40 mg Glucagon (Glucagen Diagnostic Kit) 0 mg IM STAT PRN; Protocol PRN Reason: Hypoglycemia Protocol Piperacillin Sod/Tazobactam (Sod 3.375 gm/ Sodium Chloride) 100 mls @ 100 mls/ hr IVPB Q6 [facility] Last Admin: 11/17/16 09:14 Dose: 100 mls/hr Vancomycin HCl 1 gm/ Sodium (Chloride) 250 mls @ 166.667 mls/hr IVPB Q12 [facility] Last Admin: 11/17/16 10:13 Dose: 166.667 mls/hr Sodium Chloride (Sodium Chloride 0.9%) 1,000 mls @ 100 mls/hr IV .Q10H [facility] Last Admin: 11/16/16 16:47 Dose: Not Given Insulin Human Regular (Humulin R) 0 units SC ACHS [facility] PRN Reason: Protocol Last Admin: 11/17/16 07:07 Dose: 1 units Lisinopril (Zestril) 5 mg PO DAILY [facility] Last Admin: 11/17/16 09:14 Dose: 5 mg Oxycodone/Acetaminophen (Percocet 5/325 Mg Tab) 1 tab PO Q6 PRN PRN Reason: Pain, moderate (4-7) Stop: 11/18/16 09:01 Oxycodone/Acetaminophen (Percocet 5/325 Mg Tab) 2 tab PO Q6 PRN PRN Reason: Pain, severe (8-10) Stop: 11/18/16 09:01 - Labs Labs: 11/17/16 08:00 11/16/16 07:00 - Constitutional Appears: Non-toxic, No Acute Distress - Head Exam Head Exam: NORMAL INSPECTION, NORMOCEPHALIC - Eye Exam Eye Exam: PERRL - ENT Exam ENT Exam: Mucous Membranes Moist - Neck Exam Neck Exam: Normal Inspection - Respiratory Exam Respiratory Exam: Clear to Ausculation Bilateral, NORMAL BREATHING PATTERN. absent: Rales, Wheezes - Cardiovascular Exam Cardiovascular Exam: REGULAR RHYTHM, +S1, +S2. absent: Gallop, Murmur - GI/Abdominal Exam GI & Abdominal Exam: Soft, Normal Bowel Sounds. absent: Tenderness - Extremities Exam Additional comments: R/foot covered with dressing, clean and dry. No tenderness. - Neurological Exam Neurological Exam: Alert, Awake, Oriented x3 Neuro motor strength exam: Left Upper Extremity: 5, Right Upper Extremity: 5, Left Lower Extremity: 5, Right Lower Extremity: 5 - Psychiatric Exam Psychiatric exam: Normal Affect, Normal Mood - Skin Skin Exam: Warm. absent: Pallor Assessment and Plan - Assessment and Plan (Free Text) Assessment: 46 y/o M with PMhx of DMtype2 and s/p Toe amputation presents for complicated stump -Complicated stump R/1st toe Likely Osteomyelitis: Patient will need IV ABX for 6 weeks pending bone biopsy results s/p 1st toe metatarsal amputation 1 month ago WCx growing Gram+ C/w Vanco and Zosyn IV for poss Osteo pending sensitivity and ID recs ID consulted(Dr Quinonez) will f/u recs Podiatry Consult: As per Podiatry patient needs daily wound care with repacking and he will wound debridement/closure on Saturday. -Pancitopenia Mild. Patient stable WBC 5. Still normal-low Possible due to complicated wound infection with possible Osteomyelitis vs Vancomycin use Will cont monitor -[id number] Controlled Accuchecks ISS low dose C/w Lipitor 20mg daily c/w Lisinopril 5 mg daily HgbA1c 7.3 - HTN controlled c/w Lisinopril 5 mg daily -Prophylactic measures Florastor 250mg BID SCDs for now
--- NOTE | 2016-11-17 11:57 | CP.PCM.PN ---
Subjective - Date & Time of Evaluation Date of Evaluation: 11/17/16 Time of Evaluation: 12:44 - Subjective Subjective: 46 year old male 2 day s/p right foot I and D of abscess and bone biopsy was seen resting comfortably at bedside. Patient states he is feeling well. He denies any pain to his right lower extremity. He has crutches at bedside and a surgical shoe on his RLE. He denies any n/v/f/c/sob/cp. Objective - Vital Signs/Intake and Output Vital Signs (last 24 hours): Temp Pulse Resp BP Pulse Ox 97.8 F 61 16 134/78 98 11/17/16 09:00 11/17/16 09:14 11/17/16 07:38 11/17/16 09:14 11/17/16 07:38 - Medications Medications: Current Medications Acetaminophen (Tylenol 325mg Tab) 650 mg PO Q6 PRN PRN Reason: Pain, Mild (1-3) Atorvastatin Calcium (Lipitor) 20 mg PO DAILY [facility] Last Admin: 11/17/16 09:14 Dose: 20 mg Dextrose (Dextrose 50% Inj) 0 ml IV STAT PRN; Protocol PRN Reason: Hyglycemia Protocol Dextrose (Glutose 15) 0 gm PO ONCE PRN; Protocol PRN Reason: Hypoglycemia Protocol Enoxaparin Sodium (Lovenox) 40 mg SC DAILY [facility] PRN Reason: Protocol Last Admin: 11/17/16 09:14 Dose: 40 mg Glucagon (Glucagen Diagnostic Kit) 0 mg IM STAT PRN; Protocol PRN Reason: Hypoglycemia Protocol Piperacillin Sod/Tazobactam (Sod 3.375 gm/ Sodium Chloride) 100 mls @ 100 mls/ hr IVPB Q6 [facility] Last Admin: 11/17/16 09:14 Dose: 100 mls/hr Vancomycin HCl 1 gm/ Sodium (Chloride) 250 mls @ 166.667 mls/hr IVPB Q12 [facility] Last Admin: 11/17/16 10:13 Dose: 166.667 mls/hr Sodium Chloride (Sodium Chloride 0.9%) 1,000 mls @ 100 mls/hr IV .Q10H [facility] Last Admin: 11/16/16 16:47 Dose: Not Given Insulin Human Regular (Humulin R) 0 units SC ACHS [facility] PRN Reason: Protocol Last Admin: 11/17/16 07:07 Dose: 1 units Lisinopril (Zestril) 5 mg PO DAILY [facility] Last Admin: 11/17/16 09:14 Dose: 5 mg Oxycodone/Acetaminophen (Percocet 5/325 Mg Tab) 1 tab PO Q6 PRN PRN Reason: Pain, moderate (4-7) Stop: 11/18/16 09:01 Oxycodone/Acetaminophen (Percocet 5/325 Mg Tab) 2 tab PO Q6 PRN PRN Reason: Pain, severe (8-10) Stop: 11/18/16 09:01 - Labs Labs: 11/17/16 08:00 11/16/16 07:00 - Constitutional Appears: Well, Non-toxic, No Acute Distress - Extremities Exam Additional comments: Lower extremity focused exam: Vasc: DP and PT pulses faintly palpable, TG wnl, CFT < 3 sec to all digits, mild edema noted to the distal aspect of right foot neuro: gross sensation diminished b/l derm: Open wound noted to the dorsum of the 1st metatarsal head on the right measuring approximately 7 cm by 1.8 cm by 1.5 cm with a granular base, slight increase in warmth noted to periwound, no malodor noted, sanguineous drainage noted, no purulence, no probe to bone noted ortho: tenderness on palpation to right 1st metatarsal wound site - Neurological Exam Neurological Exam: Alert, Awake, Oriented x3 Assessment and Plan - Assessment and Plan (Free Text) Assessment: 46 year old male 2 day s/p I and D of abscess of right foot and Bone biopsy 1st metatarsal right foot Plan: Pt seen & evaluate at bedside. Chart, labs, vitals reviewed. Plan discussed w/ Dr. Page, who agrees. Continue Iv abx per ID Bone biopsy results - negative for acute OM Wound culture results- pending Right foot wound site was irrigated with copious amounts of normal sterile saline, packed with 1/2 inch iodoform packing, dressed with 4x4 gauze, ABD, DSD , TAMMY. Patient to remain NWB to RLE Patient to OR Saturday at 7:45 am for a delayed primary closure. Pt to be place NPO at midnight 11/20/16. podiatry will continue to follow patient while in house
[2016-11-18] MEDS: Piperacillin/Tazobact 3.375 GM in Sodium Chloride 0.9% 100 ML IVPB SCH ×4 (04:44→22:29)
[2016-11-18] MEDS: Insulin Regular 100 units/ml SC SCH ×4 (07:35→21:34)
[2016-11-18 08:11] LABS: BASO % 0.7 % (0.0-2.0); EOS # 0.2 K/uL (0.0-0.7); EOS % 4.4 % (0.0-4.0); HEMATOCRIT 33.4 % (35.0-51.0); LYMPH # 1.2 K/uL (1.0-4.3); LYMPH % 27.7 % (20.0-40.0); MEAN CELL VOLUME 80.7 fl (80.0-94.0); MEAN CORPUSCULAR HEMOGLOBIN 26.5 pg (27.0-31.0); MEAN CORPUSCULAR HGB CONC 32.8 g/dL (33.0-37.0); MEAN PLATELET VOLUME 11.8 fl (7.2-11.7); MONO # 0.4 K/uL (0.0-0.8); MONO % 8.3 % (0.0-10.0); NEUT # 2.6 K/uL (1.8-7.0); NEUT % 58.9 % (50.0-75.0); RED CELL DISTRIBUTION WIDTH 15.5 % (11.5-14.5); WHITE BLOOD COUNT 4.5 K/uL (4.8-10.8)
[2016-11-18] MEDS: Enoxaparin 40 mg Syringe SC SCH (08:53)
--- NOTE | 2016-11-18 11:52 | CP.PCM.PN ---
Subjective - Date & Time of Evaluation Date of Evaluation: 11/18/16 Time of Evaluation: 14:00 - Subjective Subjective: 46 year old male 3 day s/p right foot I and D of abscess and bone biopsy was seen resting comfortably at bedside. Patient states he is feeling well. He denies any pain to his right lower extremity. He has crutches at bedside and a surgical shoe on his RLE. POt aware he is to go to OR Saturday for wound closure. He denies any n/v/f/c/sob/cp. Objective - Vital Signs/Intake and Output Vital Signs (last 24 hours): Temp Pulse Resp BP Pulse Ox 98.4 F 73 20 173/99 H 99 11/18/16 07:33 11/18/16 08:55 11/18/16 07:33 11/18/16 08:55 11/18/16 07:33 - Medications Medications: Current Medications Acetaminophen (Tylenol 325mg Tab) 650 mg PO Q6 PRN PRN Reason: Pain, Mild (1-3) Atorvastatin Calcium (Lipitor) 20 mg PO DAILY [facility] Last Admin: 11/18/16 08:52 Dose: 20 mg Dextrose (Dextrose 50% Inj) 0 ml IV STAT PRN; Protocol PRN Reason: Hyglycemia Protocol Dextrose (Glutose 15) 0 gm PO ONCE PRN; Protocol PRN Reason: Hypoglycemia Protocol Glucagon (Glucagen Diagnostic Kit) 0 mg IM STAT PRN; Protocol PRN Reason: Hypoglycemia Protocol Piperacillin Sod/Tazobactam (Sod 3.375 gm/ Sodium Chloride) 100 mls @ 100 mls/ hr IVPB Q6 [facility] Last Admin: 11/18/16 09:00 Dose: 100 mls/hr Vancomycin HCl 1 gm/ Sodium (Chloride) 250 mls @ 166.667 mls/hr IVPB Q12 [facility] Last Admin: 11/18/16 08:53 Dose: 166.667 mls/hr Sodium Chloride (Sodium Chloride 0.9%) 1,000 mls @ 100 mls/hr IV .Q10H [facility] Last Admin: 11/16/16 16:47 Dose: Not Given Insulin Human Regular (Humulin R) 0 units SC ACHS [facility] PRN Reason: Protocol Lisinopril (Zestril) 5 mg PO DAILY [facility] Last Admin: 11/18/16 08:55 Dose: 5 mg Metformin HCl (Glucophage) 1,000 mg PO BIDWM [facility] Last Admin: 11/18/16 08:51 Dose: 1,000 mg Sitagliptin Phosphate (Januvia) 100 mg PO DAILY [facility] - Labs Labs: 11/18/16 05:30 11/16/16 07:00 - Constitutional Appears: Well, Non-toxic, No Acute Distress - Extremities Exam Additional comments: Lower extremity focused exam: Vasc: DP and PT pulses faintly palpable, TG wnl, CFT < 3 sec to all digits, mild edema noted to the distal aspect of right foot neuro: gross sensation diminished b/l derm: Open wound noted to the dorsum of the 1st metatarsal head on the right measuring approximately 6 x 1.5 cm by 1.5 cm with a granular base, slight increase in warmth noted to drake-wound area. Plantar skin maceration noted. No malodor noted , minor sanguineous drainage noted, no purulence, no probe to bone noted ortho: tenderness on palpation to right 1st metatarsal wound site - Neurological Exam Neurological Exam: Alert, Awake, Oriented x3 Assessment and Plan - Assessment and Plan (Free Text) Assessment: 46 year old male 3 day s/p I and D of abscess of right foot and Bone biopsy 1st metatarsal right foot Plan: Pt seen & evaluate at bedside. Chart, labs, vitals reviewed. Plan discussed w/ Dr. Page, who agrees. Continue Iv abx per ID Bone biopsy results - negative for acute OM Wound culture results show : Coagulase negative Staphalococcus and Serratia Mercacens Right foot wound site was irrigated with copious amounts of normal sterile saline, packed with 1/2 inch iodoform packing, dressed with 4x4 gauze, ABD, DSD , TAMMY. Patient to remain NWB to RLE Patient to OR Saturday at 7:45 am for a delayed primary closure. Pt to be place NPO at midnight 11/20/16. podiatry will continue to follow patient while in house
--- NOTE | 2016-11-18 14:32 | CP.PCM.PN ---
Subjective - Date & Time of Evaluation Date of Evaluation: 11/18/16 Time of Evaluation: 09:00 - Subjective Subjective: EVENTS NOTED WOUND + SERRATIA/ COAG NEG STAPH RX IN PROGRESS Objective - Vital Signs/Intake and Output Vital Signs (last 24 hours): Temp Pulse Resp BP Pulse Ox 98.4 F 73 20 173/99 H 99 11/18/16 07:33 11/18/16 08:55 11/18/16 07:33 11/18/16 08:55 11/18/16 07:33 - Medications Medications: Current Medications Acetaminophen (Tylenol 325mg Tab) 650 mg PO Q6 PRN PRN Reason: Pain, Mild (1-3) Atorvastatin Calcium (Lipitor) 20 mg PO DAILY [facility] Last Admin: 11/18/16 08:52 Dose: 20 mg Dextrose (Dextrose 50% Inj) 0 ml IV STAT PRN; Protocol PRN Reason: Hyglycemia Protocol Dextrose (Glutose 15) 0 gm PO ONCE PRN; Protocol PRN Reason: Hypoglycemia Protocol Glucagon (Glucagen Diagnostic Kit) 0 mg IM STAT PRN; Protocol PRN Reason: Hypoglycemia Protocol Piperacillin Sod/Tazobactam (Sod 3.375 gm/ Sodium Chloride) 100 mls @ 100 mls/ hr IVPB Q6 [facility] Last Admin: 11/18/16 09:00 Dose: 100 mls/hr Vancomycin HCl 1 gm/ Sodium (Chloride) 250 mls @ 166.667 mls/hr IVPB Q12 [facility] Last Admin: 11/18/16 08:53 Dose: 166.667 mls/hr Sodium Chloride (Sodium Chloride 0.9%) 1,000 mls @ 100 mls/hr IV .Q10H [facility] Last Admin: 11/16/16 16:47 Dose: Not Given Insulin Human Regular (Humulin R) 0 units SC ACHS [facility] PRN Reason: Protocol Last Admin: 11/18/16 11:30 Dose: 2 u Lisinopril (Zestril) 5 mg PO DAILY [facility] Last Admin: 11/18/16 08:55 Dose: 5 mg Metformin HCl (Glucophage) 1,000 mg PO BIDWM [facility] Last Admin: 11/18/16 08:51 Dose: 1,000 mg Sitagliptin Phosphate (Januvia) 100 mg PO DAILY [facility] - Labs Labs: 11/18/16 05:30 11/16/16 07:00 - Constitutional Appears: Non-toxic, Chronically Ill - Head Exam Head Exam: NORMOCEPHALIC - Eye Exam Eye Exam: PERRL. absent: Scleral icterus - ENT Exam ENT Exam: Mucous Membranes Dry - Neck Exam Neck Exam: absent: Lymphadenopathy - Respiratory Exam Respiratory Exam: Decreased Breath Sounds, Clear to Ausculation Bilateral - Cardiovascular Exam Cardiovascular Exam: REGULAR RHYTHM - GI/Abdominal Exam GI & Abdominal Exam: Distended, Soft. absent: Tenderness - Rectal Exam Rectal Exam: Deferred - Exam Exam: NORMAL INSPECTION - Extremities Exam Extremities Exam: absent: Pedal Edema - Back Exam Back Exam: absent: CVA tenderness (L), CVA tenderness (R) - Neurological Exam Neurological Exam: Alert, Awake, Oriented x3 - Psychiatric Exam Psychiatric exam: Normal Mood - Skin Skin Exam: Dry Assessment and Plan (1) Amputated toe Status: Acute (2) Diabetic foot infection Status: Acute (3) Osteomyelitis of foot Status: Acute (4) Essential (primary) hypertension Status: Chronic (5) Non-insulin dependent type 2 diabetes mellitus Status: Chronic
--- NOTE | 2016-11-18 15:13 | CP.PCM.PN ---
Subjective - Date & Time of Evaluation Date of Evaluation: 11/18/16 Time of Evaluation: 09:25 - Subjective Subjective: Patient seen and examined at bedise, feeling well, no acute pain in leg at this time. Uneventful night. Patient has been walking w/ crutches in the [place], well tolerated. Afebrile, Denies: CP, SOB, calf pain, abdominal pain, N/V/D. Podiatry team performing daily wound care. Objective - Vital Signs/Intake and Output Vital Signs (last 24 hours): Temp Pulse Resp BP Pulse Ox 98.4 F 73 20 173/99 H 99 11/18/16 07:33 11/18/16 08:55 11/18/16 07:33 11/18/16 08:55 11/18/16 07:33 - Medications Medications: Current Medications Acetaminophen (Tylenol 325mg Tab) 650 mg PO Q6 PRN PRN Reason: Pain, Mild (1-3) Atorvastatin Calcium (Lipitor) 20 mg PO DAILY [facility] Last Admin: 11/18/16 08:52 Dose: 20 mg Dextrose (Dextrose 50% Inj) 0 ml IV STAT PRN; Protocol PRN Reason: Hyglycemia Protocol Dextrose (Glutose 15) 0 gm PO ONCE PRN; Protocol PRN Reason: Hypoglycemia Protocol Glucagon (Glucagen Diagnostic Kit) 0 mg IM STAT PRN; Protocol PRN Reason: Hypoglycemia Protocol Piperacillin Sod/Tazobactam (Sod 3.375 gm/ Sodium Chloride) 100 mls @ 100 mls/ hr IVPB Q6 [facility] Last Admin: 11/18/16 09:00 Dose: 100 mls/hr Vancomycin HCl 1 gm/ Sodium (Chloride) 250 mls @ 166.667 mls/hr IVPB Q12 [facility] Last Admin: 11/18/16 08:53 Dose: 166.667 mls/hr Sodium Chloride (Sodium Chloride 0.9%) 1,000 mls @ 100 mls/hr IV .Q10H [facility] Last Admin: 11/16/16 16:47 Dose: Not Given Insulin Human Regular (Humulin R) 0 units SC ACHS [facility] PRN Reason: Protocol Last Admin: 11/18/16 11:30 Dose: 2 u Lisinopril (Zestril) 5 mg PO DAILY [facility] Last Admin: 11/18/16 08:55 Dose: 5 mg Metformin HCl (Glucophage) 1,000 mg PO BIDWM [facility] Last Admin: 11/18/16 08:51 Dose: 1,000 mg Sitagliptin Phosphate (Januvia) 100 mg PO DAILY [facility] - Labs Labs: 11/18/16 05:30 11/16/16 07:00 - Additional Findings Additional findings: - Constitutional Appears: Non-toxic, No Acute Distress - Head Exam Head Exam: NORMAL INSPECTION, NORMOCEPHALIC - Eye Exam Eye Exam: PERRL - ENT Exam ENT Exam: Mucous Membranes Moist - Neck Exam Neck Exam: Normal Inspection - Respiratory Exam Respiratory Exam: Clear to Ausculation Bilateral, NORMAL BREATHING PATTERN. absent: Rales, Wheezes - Cardiovascular Exam Cardiovascular Exam: REGULAR RHYTHM, +S1, +S2. absent: Gallop, Murmur - GI/Abdominal Exam GI & Abdominal Exam: Soft, Normal Bowel Sounds. absent: Tenderness - Extremities Exam Additional comments: R/foot covered with dressing, clean and dry. No tenderness. - Neurological Exam Neurological Exam: Alert, Awake, Oriented x3 Neuro motor strength exam: Left Upper Extremity: 5, Right Upper Extremity: 5, Left Lower Extremity: 5, Right Lower Extremity: 5 - Psychiatric Exam Psychiatric exam: Normal Affect, Normal Mood - Skin Skin Exam: Warm. absent: Pallor Assessment and Plan - Assessment and Plan (Free Text) Plan: 46 y/o M with PMhx of DMtype2 and s/p Toe amputation presents for complicated stump -Complicated stump R/1st toe Likely Osteomyelitis: Patient will need IV ABX for 6 weeks pending bone biopsy results s/p 1st toe metatarsal amputation 1 month ago WCx growing Gram+ ABx: Vanco and Zosyn IV for poss Osteo pending sensitivity and ID recs ID consulted (Dr Quinonez) on Board. Podiatry: daily wound care with repacking and he will wound debridement. schedule SX for closure on Saturday11/20/16 -Pancitopenia Mild. Patient stable etiology likely 2/2 to infection vs side effects from antibiotics Will cont monitor Plt today: 91, will stop lovenox for now, c/w SCD , pt is ambulating. -[id number] mild hyperglycemia noticed yesterday Accuchecks ACHS will increase ISS to medium dose and continue to monitor, if gets worse will start long acting insulin. C/w Lipitor 20mg daily c/w Lisinopril 5 mg daily c/w Januvia/metformin HgbA1c 7.3 - HTN controlled c/w Lisinopril 5 mg daily DVT prophylaxis SCDs for now lovenox held due to thrombocytopenia, pt is OOB also.
[2016-11-19] MEDS: Piperacillin/Tazobact 3.375 GM in Sodium Chloride 0.9% 100 ML IVPB SCH ×4 (03:17→22:59)
[2016-11-19] MEDS: Sodium Chloride 0.9% 1,000 ML IV SCH (03:18)
[2016-11-19] MEDS: Insulin Regular 100 units/ml SC SCH ×4 (06:45→21:54)
--- NOTE | 2016-11-19 08:56 | CP.PCM.PN ---
Subjective - Date & Time of Evaluation Date of Evaluation: 11/19/16 Time of Evaluation: 08:35 - Subjective Subjective: 46 y/o M admitted for complicated stump seen at bedside in no acute distress. Patient states "he wants to go home". Denies CP, leg pain, SOB, palpitations. Afebrile. Patient has no complains at this time. Tolerating PO. Will DC IV fluids. Explained to patient that he needs to stay in hosp for 1 or 2 more days depending on procedure tomorrow morning. He verbalized understating. Objective - Vital Signs/Intake and Output Vital Signs (last 24 hours): Temp Pulse Resp BP Pulse Ox 99 F 71 20 153/84 H 99 11/19/16 07:31 11/19/16 08:45 11/19/16 07:31 11/19/16 08:45 11/19/16 07:31 - Medications Medications: Current Medications Acetaminophen (Tylenol 325mg Tab) 650 mg PO Q6 PRN PRN Reason: Pain, Mild (1-3) Atorvastatin Calcium (Lipitor) 20 mg PO DAILY [facility] Last Admin: 11/19/16 08:42 Dose: 20 mg Dextrose (Dextrose 50% Inj) 0 ml IV STAT PRN; Protocol PRN Reason: Hyglycemia Protocol Dextrose (Glutose 15) 0 gm PO ONCE PRN; Protocol PRN Reason: Hypoglycemia Protocol Glucagon (Glucagen Diagnostic Kit) 0 mg IM STAT PRN; Protocol PRN Reason: Hypoglycemia Protocol Piperacillin Sod/Tazobactam (Sod 3.375 gm/ Sodium Chloride) 100 mls @ 100 mls/ hr IVPB Q6 [facility] Last Admin: 11/19/16 03:17 Dose: 100 mls/hr Vancomycin HCl 1 gm/ Sodium (Chloride) 250 mls @ 166.667 mls/hr IVPB Q12 [facility] Last Admin: 11/19/16 08:43 Dose: 166.667 mls/hr Sodium Chloride (Sodium Chloride 0.9%) 1,000 mls @ 100 mls/hr IV .Q10H [facility] Last Admin: 11/19/16 03:18 Dose: Not Given Insulin Human Regular (Humulin R) 0 units SC ACHS [facility] PRN Reason: Protocol Last Admin: 11/19/16 06:45 Dose: Not Given Lisinopril (Zestril) 10 mg PO DAILY [facility] Last Admin: 11/19/16 08:45 Dose: 10 mg Metformin HCl (Glucophage) 1,000 mg PO BIDWM [facility] Last Admin: 11/19/16 08:42 Dose: 1,000 mg Sitagliptin Phosphate (Januvia) 100 mg PO DAILY [facility] Last Admin: 11/19/16 08:42 Dose: 100 mg - Labs Labs: 11/18/16 05:30 11/16/16 07:00 - Constitutional Appears: Non-toxic, No Acute Distress - Head Exam Head Exam: NORMAL INSPECTION - Eye Exam Eye Exam: PERRL - ENT Exam ENT Exam: Mucous Membranes Moist - Respiratory Exam Respiratory Exam: Clear to Ausculation Bilateral, NORMAL BREATHING PATTERN. absent: Rales - Cardiovascular Exam Cardiovascular Exam: REGULAR RHYTHM, +S1, +S2. absent: Gallop - GI/Abdominal Exam GI & Abdominal Exam: Soft, Normal Bowel Sounds. absent: Tenderness - Extremities Exam Additional comments: R/foot covered with Sx boot. Crutches at bedside. Dressing clean and dry - Neurological Exam Neurological Exam: Alert, Awake, Oriented x3 - Psychiatric Exam Psychiatric exam: Normal Affect, Normal Mood - Skin Skin Exam: Normal Color, Warm Assessment and Plan - Assessment and Plan (Free Text) Assessment: 46 y/o M with PMhx of DMtype2 and s/p Toe amputation presents for complicated stump -Complicated stump R/1st toe Biopsy suggest Sx sequela instead of Osteomyelitis as per Podiatry. Will discuss with ID(Dr Quinonez) if patient needs IV or PO abx s/p 1st toe metatarsal amputation 1 month ago WCx: Coag- Antonino and Deborah On Vanco and Zosyn IV ID consulted (Dr Quinonez) on Board. Podiatry: daily wound care with repacking schedule SX for closure on Saturday11/20/16 Discussed with patient about the need of keeping feet dry. According to patient he will be moved to a different position at work where he does not have to be expose to wetness. -Pancitopenia Mild. Patient stable etiology likely 2/2 to infection vs side effects from antibiotics Will cont monitor Lovenox DC -[id number] improved Accuchecks ACHS ISS medium dose and continue to monitor. C/w Lipitor 20mg daily c/w Lisinopril 5 mg daily c/w Januvia/metformin HgbA1c 7.3 - HTN controlled c/w Lisinopril 5 mg daily - DVT prophylaxis SCDs for now
--- NOTE | 2016-11-19 09:11 | CP.PCM.PN ---
Subjective - Date & Time of Evaluation Date of Evaluation: 11/19/16 Time of Evaluation: 08:22 - Subjective Subjective: 46 year old male 4 days s/p right foot I and D of abscess and bone biopsy was seen resting comfortably at bedside. Patient was resting comfortably in bed at the time of visit and denies of any overnight distress. AAO x3. Dressing to Right lower extremity remains clean, dry and intact. Patient complains of mild pain to right lower extremity only when changing the packing. (No pain when resting) He has crutches at bedside and a surgical shoe on his RLE. Pt aware he is to go to OR Saturday for wound closure. Patient is aware that he will be on NPO starting tonight. He denies any n/v/f/c/sob/cp. Objective - Vital Signs/Intake and Output Vital Signs (last 24 hours): Temp Pulse Resp BP Pulse Ox 99 F 71 20 153/84 H 99 11/19/16 07:31 11/19/16 08:45 11/19/16 07:31 11/19/16 08:45 11/19/16 07:31 - Medications Medications: Current Medications Acetaminophen (Tylenol 325mg Tab) 650 mg PO Q6 PRN PRN Reason: Pain, Mild (1-3) Atorvastatin Calcium (Lipitor) 20 mg PO DAILY [facility] Last Admin: 11/19/16 08:42 Dose: 20 mg Dextrose (Dextrose 50% Inj) 0 ml IV STAT PRN; Protocol PRN Reason: Hyglycemia Protocol Dextrose (Glutose 15) 0 gm PO ONCE PRN; Protocol PRN Reason: Hypoglycemia Protocol Glucagon (Glucagen Diagnostic Kit) 0 mg IM STAT PRN; Protocol PRN Reason: Hypoglycemia Protocol Piperacillin Sod/Tazobactam (Sod 3.375 gm/ Sodium Chloride) 100 mls @ 100 mls/ hr IVPB Q6 [facility] Last Admin: 11/19/16 03:17 Dose: 100 mls/hr Vancomycin HCl 1 gm/ Sodium (Chloride) 250 mls @ 166.667 mls/hr IVPB Q12 [facility] Last Admin: 11/19/16 08:43 Dose: 166.667 mls/hr Sodium Chloride (Sodium Chloride 0.9%) 1,000 mls @ 100 mls/hr IV .Q10H [facility] Last Admin: 11/19/16 03:18 Dose: Not Given Insulin Human Regular (Humulin R) 0 units SC ACHS [facility] PRN Reason: Protocol Last Admin: 11/19/16 06:45 Dose: Not Given Lisinopril (Zestril) 10 mg PO DAILY [facility] Last Admin: 11/19/16 08:45 Dose: 10 mg Metformin HCl (Glucophage) 1,000 mg PO BIDWM [facility] Last Admin: 11/19/16 08:42 Dose: 1,000 mg Sitagliptin Phosphate (Januvia) 100 mg PO DAILY [facility] Last Admin: 11/19/16 08:42 Dose: 100 mg - Labs Labs: 11/18/16 05:30 11/16/16 07:00 - Constitutional Appears: Well, Non-toxic, No Acute Distress - Extremities Exam Additional comments: Lower extremity focused exam: Vasc: DP and PT pulses faintly palpable, TG wnl, CFT < 3 sec to all digits, mild edema noted to the distal aspect of right foot neuro: gross sensation diminished b/l derm: Open wound noted to the dorsum of the 1st metatarsal head on the right measuring approximately 6 x 1.5 cm by 1.5 cm with a granular base, slight increase in warmth noted to drake-wound area. Plantar skin maceration noted. No malodor noted , minor sanguineous drainage noted, no purulence, no probe to bone noted ortho: tenderness on palpation to right 1st metatarsal wound site - Neurological Exam Neurological Exam: Alert, Awake, Oriented x3 - Psychiatric Exam Psychiatric exam: Normal Affect, Normal Mood - Skin Skin Exam: Normal Color, Warm Assessment and Plan - Assessment and Plan (Free Text) Assessment: 46 year old male 4 days s/p right foot incision and drainage and Bone biopsy of 1st metatarsal. Plan: Pt seen & evaluate at bedside. Chart, labs, vitals reviewed. Plan discussed w/ Dr. Page Continue Iv abx per ID Bone biopsy results - negative for acute OM Wound culture results show : Coagulase negative Staphalococcus and Serratia Mercacens Right foot wound site was irrigated with copious amounts of normal sterile saline, packed with 1/2 inch iodoform packing, dressed with 4x4 gauze, ABD, DSD , TAMMY. Patient to remain NWB to RLE Patient to OR Saturday at 7:45 am for a delayed primary closure. Pt to be place NPO at midnight 11/20/16. Anticoag on hold as per Family Medicine podiatry will continue to follow patient while in house
--- NOTE | 2016-11-19 13:13 | CP.PCM.PN ---
Subjective - Date & Time of Evaluation Date of Evaluation: 11/19/16 Time of Evaluation: 07:00 - Subjective Subjective: DOING WELL ON ANTIBIOTIC RX DENIES FEVER / CHILLS NO PAIN Objective - Vital Signs/Intake and Output Vital Signs (last 24 hours): Temp Pulse Resp BP Pulse Ox 99 F 71 20 153/84 H 99 11/19/16 07:31 11/19/16 08:45 11/19/16 07:31 11/19/16 08:45 11/19/16 07:31 - Medications Medications: Current Medications Acetaminophen (Tylenol 325mg Tab) 650 mg PO Q6 PRN PRN Reason: Pain, Mild (1-3) Atorvastatin Calcium (Lipitor) 20 mg PO DAILY [facility] Last Admin: 11/19/16 08:42 Dose: 20 mg Dextrose (Dextrose 50% Inj) 0 ml IV STAT PRN; Protocol PRN Reason: Hyglycemia Protocol Dextrose (Glutose 15) 0 gm PO ONCE PRN; Protocol PRN Reason: Hypoglycemia Protocol Glucagon (Glucagen Diagnostic Kit) 0 mg IM STAT PRN; Protocol PRN Reason: Hypoglycemia Protocol Piperacillin Sod/Tazobactam (Sod 3.375 gm/ Sodium Chloride) 100 mls @ 100 mls/ hr IVPB Q6 [facility] Last Admin: 11/19/16 03:17 Dose: 100 mls/hr Vancomycin HCl 1 gm/ Sodium (Chloride) 250 mls @ 166.667 mls/hr IVPB Q12 [facility] Last Admin: 11/19/16 08:43 Dose: 166.667 mls/hr Insulin Human Regular (Humulin R) 0 units SC ACHS [facility] PRN Reason: Protocol Last Admin: 11/19/16 06:45 Dose: Not Given Lisinopril (Zestril) 10 mg PO DAILY [facility] Last Admin: 11/19/16 08:45 Dose: 10 mg Metformin HCl (Glucophage) 1,000 mg PO BIDWM [facility] Last Admin: 11/19/16 08:42 Dose: 1,000 mg Sitagliptin Phosphate (Januvia) 100 mg PO DAILY [facility] Last Admin: 11/19/16 08:42 Dose: 100 mg - Labs Labs: 11/18/16 05:30 11/16/16 07:00 - Constitutional Appears: Non-toxic, Chronically Ill - Head Exam Head Exam: NORMOCEPHALIC - Eye Exam Eye Exam: PERRL. absent: Scleral icterus - ENT Exam ENT Exam: Mucous Membranes Dry, Normal External Ear Exam - Neck Exam Neck Exam: absent: Lymphadenopathy - Respiratory Exam Respiratory Exam: Decreased Breath Sounds, Clear to Ausculation Bilateral - Cardiovascular Exam Cardiovascular Exam: REGULAR RHYTHM, +S1, +S2 - GI/Abdominal Exam GI & Abdominal Exam: Distended, Soft. absent: Tenderness - Rectal Exam Rectal Exam: Deferred - Extremities Exam Extremities Exam: Pedal Edema, Tenderness. absent: Calf Tenderness Additional comments: FOOT APPEARS DRY WOUND HEALING - Back Exam Back Exam: absent: CVA tenderness (L), CVA tenderness (R) - Neurological Exam Neurological Exam: Alert, Awake, Oriented x3 - Psychiatric Exam Psychiatric exam: Normal Mood - Skin Skin Exam: Dry Assessment and Plan (1) Amputated toe Status: Acute (2) Diabetic foot infection Status: Acute (3) Osteomyelitis of foot Status: Acute (4) Essential (primary) hypertension Status: Chronic (5) Non-insulin dependent type 2 diabetes mellitus Status: Chronic
[2016-11-20] MEDS: Piperacillin/Tazobact 3.375 GM in Sodium Chloride 0.9% 100 ML IVPB SCH ×4 (04:19→21:32)
[2016-11-20] MEDS: Sodium Chloride 0.9% 1,000 ML IV SCH ×2 (05:46→12:36)
--- NOTE | 2016-11-20 06:53 | CP.PCM.PN ---
Subjective - Date & Time of Evaluation Date of Evaluation: 11/20/16 Time of Evaluation: 06:52 - Subjective Subjective: 46 year old male was seen resting comfortably at bedside 5 days s/p right foot I and D with bone biopsy. Patient currently denies any pain. Patient is aware he is going for surgery today today. NPO status confirmed. He denies any n/v/f /c/sob/cp. Objective - Vital Signs/Intake and Output Vital Signs (last 24 hours): Temp Pulse Resp BP Pulse Ox 98.6 F 60 19 155/85 H 97 11/20/16 00:39 11/20/16 00:39 11/20/16 00:39 11/20/16 00:39 11/20/16 00:39 - Medications Medications: Current Medications Acetaminophen (Tylenol 325mg Tab) 650 mg PO Q6 PRN PRN Reason: Pain, Mild (1-3) Atorvastatin Calcium (Lipitor) 20 mg PO DAILY [facility] Last Admin: 11/19/16 08:42 Dose: 20 mg Dextrose (Dextrose 50% Inj) 0 ml IV STAT PRN; Protocol PRN Reason: Hyglycemia Protocol Dextrose (Glutose 15) 0 gm PO ONCE PRN; Protocol PRN Reason: Hypoglycemia Protocol Glucagon (Glucagen Diagnostic Kit) 0 mg IM STAT PRN; Protocol PRN Reason: Hypoglycemia Protocol Piperacillin Sod/Tazobactam (Sod 3.375 gm/ Sodium Chloride) 100 mls @ 100 mls/ hr IVPB Q6 [facility] Last Admin: 11/20/16 04:19 Dose: 100 mls/hr Vancomycin HCl 1 gm/ Sodium (Chloride) 250 mls @ 166.667 mls/hr IVPB Q12 [facility] Last Admin: 11/19/16 20:22 Dose: 166.667 mls/hr Sodium Chloride (Sodium Chloride 0.9%) 1,000 mls @ 125 mls/hr IV .Q8H [facility] Stop: 11/21/16 04:26 Last Admin: 11/20/16 05:46 Dose: 125 mls/hr Insulin Human Regular (Humulin R) 0 units SC ACHS [facility] PRN Reason: Protocol Last Admin: 11/19/16 21:54 Dose: Not Given Lisinopril (Zestril) 10 mg PO DAILY [facility] Last Admin: 11/19/16 08:45 Dose: 10 mg Metformin HCl (Glucophage) 1,000 mg PO BIDWM [facility] Last Admin: 11/19/16 16:29 Dose: 1,000 mg Sitagliptin Phosphate (Januvia) 100 mg PO DAILY [facility] Last Admin: 11/19/16 08:42 Dose: 100 mg - Labs Labs: 11/18/16 05:30 11/16/16 07:00 - Extremities Exam Additional comments: Lower extremity focused exam: dressing clean,dry, intact to RLE CFT < 3 seconds to all digits Assessment and Plan - Assessment and Plan (Free Text) Assessment: 46 year old male 5 days s/p right foot I and D with bone biopsy Plan: Pt was seen and examined at bedside Pt NPO status was confirmed All Pre-op testing and clearance was in the chart Pt has exhausted all conservative treatment at this time and is opting for surgical intervention Pt was explained procedure and post-operative course All pt's questions were answered to satisfaction No guarantees were made Pt understands all risks, benefits and complications of procedure Pt will follow-up with
[2016-11-20] MEDS ORDERED: Succinylcholine 200 mg/10 ml Inj IV ONE (07:07)
[2016-11-20] MEDS ORDERED: Propofol 10 mg/ml Inj (20 ML) ONE ×2 (07:07→07:16)
[2016-11-20] MEDS ORDERED: Midazolam 2 MG/2 ML VIAL ONE (07:07)
[2016-11-20] MEDS: Insulin Regular 100 units/ml SC SCH ×4 (07:15→21:30)
[2016-11-20] MEDS ORDERED: Lidocaine 1% Inj (20ml) ONE (07:17)
[2016-11-20] MEDS ORDERED: Bupivacaine 0.5% Inj(30mL) ONE (07:17)
[2016-11-20] MEDS ORDERED: ePHEDrine 50 mg/ml Inj ONE (07:18)
[2016-11-20 07:33] LABS: HEMATOCRIT 33.2 % (35.0-51.0); MEAN CELL VOLUME 80.5 fl (80.0-94.0); MEAN CORPUSCULAR HEMOGLOBIN 26.4 pg (27.0-31.0); MEAN CORPUSCULAR HGB CONC 32.8 g/dL (33.0-37.0); WHITE BLOOD COUNT 4.7 K/uL (4.8-10.8)
[2016-11-20 07:44] LABS: BLOOD UREA NITROGEN 15 mg/dl (9-20); CALCIUM 9.3 mg/dL (8.4-10.2); CARBON DIOXIDE 26 mmol/L (22-30); CHLORIDE 107 mmol/L (98-107); GFR AFRICAN-AMERICAN > 60; GLUCOSE,RANDOM 126 mg/dL (75-110); POTASSIUM 4.1 MMOL/L (3.6-5.0); SODIUM 142 mmol/l (132-148)
[2016-11-20] MEDS ORDERED: Bupivacaine 0.5% Inj(30mL) IJ ONE (07:51)
[2016-11-20] MEDS ORDERED: Lidocaine 1% Inj (20ml) IJ ONE (07:51)
[2016-11-20] MEDS ORDERED: Sodium Chloride 0.9% 500 ML IV ONE (08:12)
--- NOTE | 2016-11-20 08:54 | PCM.SURG1 ---
Surgeon's Initial Post Op Note - Surgeon's Notes Surgeon: Dr. Page Choir Accompanist: Dr. Rema Cisneros Type of Anesthesia: IV Sedation, Local Anesthesia Administered By: Dr. Garcia Pre-Operative Diagnosis: Right foot open wound Operative Findings: Materials: 2-0 Prolene, 4-0 Nylon, 1/4 inch packing Post-Operative Diagnosis: same Operation Performed: Right foot secondary wound closure Specimen/Specimens Removed: None Estimated Blood Loss: EBL {In ML}: 2 Blood Products Given: N/A Drains Used: No Drains Post-Op Condition: Good Date of Surgery/Procedure: 11/20/16 Time of Surgery/Procedure: 08:00
[2016-11-20] MEDS ORDERED: Oxycodone/Acetaminophen 5/325 mg Tab PO PRN ×2 (08:56)
--- NOTE | 2016-11-20 17:47 | CP.PCM.PN ---
Subjective - Date & Time of Evaluation Date of Evaluation: 11/20/16 Time of Evaluation: 17:40 - Subjective Subjective: 46 y/o admitted for complicated stump seen at bedside this afternoon s/p successful wound closure by Podiatry team this morning. Patient denies pain, SOB , palpitations, dizziness, changes in urination or stools. HE states he wants to go home tomorrow. Discussed again with him about the need to avoid wetness to the foot when he goes home. Patient states he would take precautions and would F/U with Dr Page for specials instructions and job letter. Objective - Vital Signs/Intake and Output Vital Signs (last 24 hours): Temp Pulse Resp BP Pulse Ox 98.0 F 70 16 134/67 98 11/20/16 15:50 11/20/16 15:50 11/20/16 15:50 11/20/16 15:50 11/20/16 15:50 Intake and Output: 11/20/16 11/20/16 06:59 18:59 Intake Total 400 Balance 400 - Medications Medications: Current Medications Acetaminophen (Tylenol 325mg Tab) 650 mg PO Q6 PRN PRN Reason: Pain, Mild (1-3) Acetaminophen (Tylenol 325mg Tab) 650 mg PO Q4 PRN PRN Reason: Pain, Mild (1-3) Atorvastatin Calcium (Lipitor) 20 mg PO DAILY [facility] Last Admin: 11/20/16 10:50 Dose: 20 mg Dextrose (Dextrose 50% Inj) 0 ml IV STAT PRN; Protocol PRN Reason: Hyglycemia Protocol Dextrose (Glutose 15) 0 gm PO ONCE PRN; Protocol PRN Reason: Hypoglycemia Protocol Glucagon (Glucagen Diagnostic Kit) 0 mg IM STAT PRN; Protocol PRN Reason: Hypoglycemia Protocol Piperacillin Sod/Tazobactam (Sod 3.375 gm/ Sodium Chloride) 100 mls @ 100 mls/ hr IVPB Q6 [facility] Last Admin: 11/20/16 10:50 Dose: 100 mls/hr Vancomycin HCl 1 gm/ Sodium (Chloride) 250 mls @ 166.667 mls/hr IVPB Q12 [facility] Last Admin: 11/20/16 12:34 Dose: 166.667 mls/hr Sodium Chloride (Sodium Chloride 0.9%) 1,000 mls @ 125 mls/hr IV .Q8H [facility] Stop: 11/21/16 04:26 Last Admin: 11/20/16 12:36 Dose: Not Given Insulin Human Regular (Humulin R) 0 units SC ACHS [facility] PRN Reason: Protocol Last Admin: 11/20/16 12:33 Dose: Not Given Lisinopril (Zestril) 10 mg PO DAILY [facility] Last Admin: 11/20/16 10:51 Dose: 10 mg Metformin HCl (Glucophage) 1,000 mg PO BIDWM [facility] Last Admin: 11/20/16 10:50 Dose: 1,000 mg Oxycodone/Acetaminophen (Percocet 5/325 Mg Tab) 1 tab PO Q4 PRN PRN Reason: Pain, moderate (4-7) Stop: 11/23/16 08:57 Oxycodone/Acetaminophen (Percocet 5/325 Mg Tab) 2 tab PO Q4 PRN PRN Reason: Pain, severe (8-10) Stop: 11/23/16 08:57 Sitagliptin Phosphate (Januvia) 100 mg PO DAILY [facility] Last Admin: 11/20/16 10:50 Dose: 100 mg - Labs Labs: 11/20/16 06:55 11/20/16 06:55 - Constitutional Appears: Non-toxic, No Acute Distress - Head Exam Head Exam: NORMAL INSPECTION - Eye Exam Eye Exam: PERRL - ENT Exam ENT Exam: Mucous Membranes Moist - Respiratory Exam Respiratory Exam: Clear to Ausculation Bilateral, NORMAL BREATHING PATTERN - Cardiovascular Exam Cardiovascular Exam: REGULAR RHYTHM, +S1, +S2. absent: Gallop - GI/Abdominal Exam GI & Abdominal Exam: Soft, Normal Bowel Sounds - Extremities Exam Extremities Exam: absent: Calf Tenderness Additional comments: r/foot covered with Sx boot, clean and dry. - Neurological Exam Neurological Exam: Alert, Awake, Oriented x3 - Psychiatric Exam Psychiatric exam: Normal Affect, Normal Mood Assessment and Plan - Assessment and Plan (Free Text) Assessment: 46 y/o M with PMhx of DMtype2 and s/p Toe amputation presents for complicated stump -Complicated stump R/1st toe Biopsy suggest Sx sequela instead of Osteomyelitis as per Podiatry. As per ID( Dr Quinonez) patient can possible go home with PO abx s/p 1st toe metatarsal amputation 1 month ago WCx: Coag- Staph and Serratia On Vanco and Zosyn IV day 6 ID consulted (Dr Quinonez) on Board. S/P wound closure Today. Possible DC home tomorrow -Pancitopenia Mild. Patient stable etiology likely 2/2 to infection vs side effects from antibiotics Will cont monitor Lovenox DC -[id number] improved Accuchecks ACHS ISS medium dose and continue to monitor. C/w Lipitor 20mg daily c/w Lisinopril 5 mg daily c/w Januvia/metformin HgbA1c 7.3 - HTN controlled c/w Lisinopril 5 mg daily - DVT prophylaxis SCDs for now
[2016-11-20 20:01] VITALS: RESP 20
--- NOTE | 2016-11-20 20:05 | OP ---
PROCEDURE DATE: 11/20/2016 SURGEON: Dr. Page, CAGE SHIFT MANAGER: Dr. Nabil Cisneros. MATERIAL LISTER: Dr. Garcia. ANESTHESIA: IV sedation with local. PREOPERATIVE DIAGNOSES: Right foot open wound. POSTOPERATIVE DIAGNOSES: Right foot open wound. PROCEDURE PERFORMED: 1. Right foot skin plasty/ wound closure INDICATIONS: The patient is a 46-year-old male with the above diagnoses. The patient had a right foot infection with an abscess to the first metatarsal stump -amputation site. The patient signed the consent after careful explanation of risks, benefits, complication and alternatives for surgical procedure. No guarantees were given nor implied. The patient was inpatient on the floor and has been having IV antibiotic. N.p.o. status was confirmed prior to taking patient to the OR. PREPARATION: The patient was brought to the operating room table and placed on the operating room table in supine position. No pneumatic ankle tourniquet was used in this procedure. After induction of IV sedation, the patient received a total of 12 mL of 1:1 mixture of 0.5% Marcaine plain and 1% lidocaine plain in a local block fashion to the right foot. Once local anesthesia was achieved, the right foot was then prepped and draped in usual sterile manner. PROCEDURE #1: Right foot skin plasty/ Right foot wound closure DESCRIPTION OF PROCEDURE: Attention was directed to the dorsal aspect of the right foot longitudinal open wound over the first metatarsal measuring 6.5 cm x 1.5 cm x 1 cm. Utilizing #15 blade and a forcep macerated wound margins were cut out with a #15 blade with thickness of approximately 2 mm. Attention was then directed to the extra skin flap to the distal medial aspect of the wound, which was inhibiting skin to reapproximate. This skin flap was then pulled laterally with a forcep and was cut off with a #15 blade leaving a good skin contour that fits the contour of the skin on the other side. The wound was then irrigated with copious amounts of mixture of normal was saline and antibiotic. Then, the skin was reapproximated with 2-0 Prolene - as retention sutures . Utilizing a forcep quarter-inch plain packing strip was packed into the wound. Then using 4-0 nylon in a simple suture technique; the primary incision line was closed. The right foot was then dressed with Betadine- soaked Adaptic, 4 x 4 and Kerlix. The attending was present during the entire case. POSTOPERATIVE CONDITION: The patient tolerated the anesthesia and procedure well and was escorted to the recovery room with vital signs stable and neurovascular status intact to the right foot. The patient will be back to the floor and will be seen on floor by podiatry team and Dr. Page. NABIL CISNEROS DPM HARPAL Mtz DPM cc: [id number] TT: 11/20/2016 20:04:44 ruel SALAZAR
[2016-11-21] MEDS: Piperacillin/Tazobact 3.375 GM in Sodium Chloride 0.9% 100 ML IVPB SCH ×2 (04:24→10:54)
--- NOTE | 2016-11-21 06:21 | CP.PCM.PN ---
Subjective - Date & Time of Evaluation Date of Evaluation: 11/21/16 Time of Evaluation: 06:21 - Subjective Subjective: 46 year old male 1 day s/p delayed secondary closure was seen resting comfortably at bedside. Patient denies any pain to his right foot. Denies any n/v/f/c/sob/cp. Objective - Vital Signs/Intake and Output Vital Signs (last 24 hours): Temp Pulse Resp BP Pulse Ox 98.6 F 60 20 157/85 H 100 11/21/16 00:00 11/21/16 00:00 11/21/16 00:00 11/21/16 00:00 11/21/16 00:00 Intake and Output: 11/20/16 11/21/16 18:59 06:59 Intake Total 400 Balance 400 - Medications Medications: Current Medications Acetaminophen (Tylenol 325mg Tab) 650 mg PO Q6 PRN PRN Reason: Pain, Mild (1-3) Acetaminophen (Tylenol 325mg Tab) 650 mg PO Q4 PRN PRN Reason: Pain, Mild (1-3) Atorvastatin Calcium (Lipitor) 20 mg PO DAILY [facility] Last Admin: 11/20/16 10:50 Dose: 20 mg Dextrose (Dextrose 50% Inj) 0 ml IV STAT PRN; Protocol PRN Reason: Hyglycemia Protocol Dextrose (Glutose 15) 0 gm PO ONCE PRN; Protocol PRN Reason: Hypoglycemia Protocol Glucagon (Glucagen Diagnostic Kit) 0 mg IM STAT PRN; Protocol PRN Reason: Hypoglycemia Protocol Piperacillin Sod/Tazobactam (Sod 3.375 gm/ Sodium Chloride) 100 mls @ 100 mls/ hr IVPB Q6 [facility] Last Admin: 11/21/16 04:24 Dose: 100 mls/hr Vancomycin HCl 1 gm/ Sodium (Chloride) 250 mls @ 166.667 mls/hr IVPB Q12 [facility] Last Admin: 11/20/16 20:17 Dose: 166.667 mls/hr Insulin Human Regular (Humulin R) 0 units SC ACHS [facility] PRN Reason: Protocol Last Admin: 11/20/16 21:30 Dose: Not Given Lisinopril (Zestril) 10 mg PO DAILY [facility] Last Admin: 11/20/16 10:51 Dose: 10 mg Metformin HCl (Glucophage) 1,000 mg PO BIDWM [facility] Last Admin: 11/20/16 17:06 Dose: 1,000 mg Oxycodone/Acetaminophen (Percocet 5/325 Mg Tab) 1 tab PO Q4 PRN PRN Reason: Pain, moderate (4-7) Stop: 11/23/16 08:57 Oxycodone/Acetaminophen (Percocet 5/325 Mg Tab) 2 tab PO Q4 PRN PRN Reason: Pain, severe (8-10) Stop: 11/23/16 08:57 Sitagliptin Phosphate (Januvia) 100 mg PO DAILY [facility] Last Admin: 11/20/16 10:50 Dose: 100 mg - Labs Labs: 11/20/16 06:55 11/20/16 06:55 - Constitutional Appears: Well, Non-toxic, No Acute Distress - Extremities Exam Additional comments: Lower extremity focused exam: Vasc: DP and PT pulses faintly palpable, TG wnl, CFT < 3 sec to all digits, mild edema noted to the distal aspect of right foot neuro: gross sensation diminished b/l derm: Incision site noted to dorsum of right foot 1st metatarsal, with sutures intact, no dehisence noted. No malodor noted, minor sanguineous drainage noted, no purulence, no probe to bone noted ortho: tenderness on palpation to right 1st metatarsal wound site - Neurological Exam Neurological Exam: Alert, Awake, Oriented x3 - Psychiatric Exam Psychiatric exam: Normal Affect, Normal Mood Assessment and Plan - Assessment and Plan (Free Text) Assessment: 46 year old male 1 day s/p right foot delayed closure Plan: patient examined and evaluated discussed in detail with attending, Dr. Page chart, labs, vitals reviewed right foot packing was removed, irrigated with normal sterile saline, and dressed with adaptic, DSD, kerlix, TAMMY patient to keep dressing c/d/i to RLE NWB to RLE continue abx per ID patient will f/u with Dr. Page upon D/C podiatry will continue to follow patient while in house
[2016-11-21 07:17] LABS: HEMATOCRIT 35.3 % (35.0-51.0); MEAN CELL VOLUME 79.8 fl (80.0-94.0); MEAN CORPUSCULAR HEMOGLOBIN 26.6 pg (27.0-31.0); MEAN CORPUSCULAR HGB CONC 33.3 g/dL (33.0-37.0); RED CELL DISTRIBUTION WIDTH 15.2 % (11.5-14.5); WHITE BLOOD COUNT 4.4 K/uL (4.8-10.8)
[2016-11-21 07:44] LABS: BLOOD UREA NITROGEN 14 mg/dl (9-20); CALCIUM 9.6 mg/dL (8.4-10.2); CARBON DIOXIDE 27 mmol/L (22-30); CHLORIDE 105 mmol/L (98-107); GFR AFRICAN-AMERICAN > 60; GLUCOSE,RANDOM 116 mg/dL (75-110); POTASSIUM 4.2 MMOL/L (3.6-5.0); SODIUM 143 mmol/l (132-148)
[2016-11-21 08:02] VITALS: BP 156/81; PULSE 68; TEMP 98.9; O2SAT 99
[2016-11-21] MEDS: Insulin Regular 100 units/ml SC SCH ×2 (08:43→11:53)
--- NOTE | 2016-11-21 12:27 | CP.PCM.DIS ---
Provider - Provider Date of Admission: 11/14/16 14:03 Attending physician: Kanwal Zelaya MD Consults: ID Dr Quinonez Podiatry Dr Page Time Spent in preparation of Discharge (in minutes): 35 Diagnosis - Discharge Diagnosis (1) Open wnd foot-complicated Status: Acute Comment: S/P I&D and wound closure. DC home with PO abx (2) Type 2 diabetes mellitus Status: Chronic Priority: Medium Comment: Controlled. C/W [place] Hospital Course - Lab Results Lab Results: Micro Results 11/15/16 14:00 Foot - Right Gram Stain - Final 11/15/16 14:00 Foot - Right Wound Culture - Final Serratia Marcescens Coagulase Neg Staphylococcus Most Recent Lab Values WBC 4.4 K/uL (4.8-10.8) L 11/21/16 06:10 RBC 4.42 Mil/uL (4.40-5.90) 11/21/16 06:10 Hgb 11.8 g/dL (12.0-18.0) L 11/21/16 06:10 Hct 35.3 % (35.0-51.0) 11/21/16 06:10 MCV 79.8 fl (80.0-94.0) L 11/21/16 06:10 MCH 26.6 pg (27.0-31.0) L 11/21/16 06:10 MCHC 33.3 g/dL (33.0-37.0) 11/21/16 06:10 RDW 15.2 % (11.5-14.5) H 11/21/16 06:10 Plt Count 103 K/uL (130-400) L 11/21/16 06:10 MPV 11.8 fl (7.2-11.7) H 11/18/16 05:30 Neut % (Auto) 58.9 % (50.0-75.0) 11/18/16 05:30 Lymph % (Auto) 27.7 % (20.0-40.0) 11/18/16 05:30 [place] % (Auto) 8.3 % (0.0-10.0) 11/18/16 05:30 Eos % (Auto) 4.4 % (0.0-4.0) H 11/18/16 05:30 Baso % (Auto) 0.7 % (0.0-2.0) 11/18/16 05:30 Neut # 2.6 K/uL (1.8-7.0) 11/18/16 05:30 Lymph # 1.2 K/uL (1.0-4.3) 11/18/16 05:30 [place] # 0.4 K/uL (0.0-0.8) 11/18/16 05:30 Eos # 0.2 K/uL (0.0-0.7) 11/18/16 05:30 Baso # 0.0 K/uL (0.0-0.2) 11/18/16 05:30 Sodium 143 mmol/l (132-148) 11/21/16 06:10 Potassium 4.2 MMOL/L (3.6-5.0) 11/21/16 06:10 Chloride 105 mmol/L (98-107) 11/21/16 06:10 Carbon Dioxide 27 mmol/L (22-30) 11/21/16 06:10 Anion Gap 15 (10-20) 11/21/16 06:10 BUN 14 mg/dl (9-20) 11/21/16 06:10 Creatinine 1.3 mg/dL (0.8-1.5) 11/21/16 06:10 Est GFR ( Amer) > 60 11/21/16 06:10 Est GFR (Non-Af Amer) 59 11/21/16 06:10 POC Glucose (mg/dL) 171 mg/dL (65-110) H 11/21/16 11:15 Random Glucose 116 mg/dL (75-110) H 11/21/16 06:10 Hemoglobin A1c 7.3 % (4.2-6.5) H 11/15/16 07:15 Calcium 9.6 mg/dL (8.4-10.2) 11/21/16 06:10 Total Bilirubin 0.6 mg/dl (0.2-1.3) 11/14/16 12:55 AST 23 U/L (17-59) 11/14/16 12:55 ALT 39 U/L (21-72) 11/14/16 12:55 Alkaline Phosphatase 83 U/L (38-126) 11/14/16 12:55 Total Protein 7.3 G/DL (6.3-8.2) 11/14/16 12:55 Albumin 4.3 g/dL (3.5-5.0) 11/14/16 12:55 Globulin 3.0 gm/dL (2.2-3.9) 11/14/16 12:55 Albumin/Globulin Ratio 1.5 (1.0-2.1) 11/14/16 12:55 Triglycerides 63 mg/DL (0-149) D 11/15/16 07:15 Cholesterol 156 mg/dL (0-199) 11/15/16 07:15 LDL Cholesterol Direct 67 mg/dL (0-129) 11/15/16 07:15 HDL Cholesterol 68 MG/DL (30-70) 11/15/16 07:15 Vancomycin Trough 13.9 ug/mL (5.0-10.0) H 11/18/16 08:20 - Hospital Course Hospital Course: 46 y/o M with PMHx of NIDDM admitted for complicated stump after 1st toe amputation 1 month ago found to have infected wound with Serratia and Coag neg Staph was treated with I&D, daily wound care and wound closure by Podiatry team while in the hosp. He was evaluated by ID and treated with IV abx for 1 week. Xray and bone biopsy did not show unequivocal signs of osteo and changes were most likely due to sequelae from previous Sx(Please see full report). Today patient was feeling better and cleared by Podiatry to f/u as outpatient. Patient did not accept transfer to TCU or [facility] for IV abx because of family matters and threatened to leave hosp today AMA. As per ID recs and most likely the absence of OM as diagnosis patient was DC home with Cipro 500mg BID for 5 more weeks(Both Serratia and Staph sensitive to Cipro) and F/U as outpatient with Dr Page in [address] Quinonez within one week. DC meds: Sitagliptin Phos/Metformin HCl 1 tab PO BID Janumet 50-1,000 mg Tablet Atorvastatin [Lipitor] 20 mg PO DAILY Cipro 500mg BID for 5 weeks Discharge Exam - Head Exam Head Exam: NORMAL INSPECTION - Eye Exam Eye Exam: PERRL - ENT Exam ENT Exam: Mucous Membranes Moist - Respiratory Exam Respiratory Exam: Clear to PA & Lateral, NORMAL BREATHING PATTERN, UNREMARKABLE - Cardiovascular Exam Cardiovascular Exam: REGULAR RHYTHM, +S1, +S2. absent: Gallop - GI/Abdominal Exam GI & Abdominal Exam: Normal Bowel Sounds, Unremarkable - Extremities Exam Additional comments: R/foot covered with Sx boot. Clean and dry - Neurological Exam Neurological exam: Alert, Normal Gait, Oriented x3 - Psychiatric Exam Psychiatric exam: Normal Affect, Normal Mood - Skin Skin Exam: Warm Discharge Plan - Discharge Medications Prescriptions: Ciprofloxacin [Cipro] 500 mg PO Q12H #70 tab Lisinopril [Zestril] 10 mg PO DAILY #30 tab - Follow Up Plan Condition: STABLE Disposition: HOME/ ROUTINE Instructions: Diabetic Foot Ulcers (DC) Additional Instructions: F/U with Dr Page next SaturdayNovember 24 F/U with Dr Quinonez within 1 week Non Wt bearing Avoid wetness Referrals: Sandip Page DPM [[facility]] - Antonino Quinonez MD [Staff Provider] -
--- NOTE | 2016-11-21 13:56 | CP.PCM.PN ---
Subjective - Date & Time of Evaluation Date of Evaluation: 11/21/16 Time of Evaluation: 09:00 - Subjective Subjective: REFUSING HOME IV RX POOR PROGNOSIS Objective - Vital Signs/Intake and Output Vital Signs (last 24 hours): Temp Pulse Resp BP Pulse Ox 98.9 F 68 20 156/81 H 99 11/21/16 08:01 11/21/16 08:41 11/21/16 08:01 11/21/16 08:41 11/21/16 08:01 - Medications Medications: Current Medications Acetaminophen (Tylenol 325mg Tab) 650 mg PO Q6 PRN PRN Reason: Pain, Mild (1-3) Acetaminophen (Tylenol 325mg Tab) 650 mg PO Q4 PRN PRN Reason: Pain, Mild (1-3) Atorvastatin Calcium (Lipitor) 20 mg PO DAILY [facility] Last Admin: 11/21/16 08:41 Dose: 20 mg Dextrose (Dextrose 50% Inj) 0 ml IV STAT PRN; Protocol PRN Reason: Hyglycemia Protocol Dextrose (Glutose 15) 0 gm PO ONCE PRN; Protocol PRN Reason: Hypoglycemia Protocol Glucagon (Glucagen Diagnostic Kit) 0 mg IM STAT PRN; Protocol PRN Reason: Hypoglycemia Protocol Piperacillin Sod/Tazobactam (Sod 3.375 gm/ Sodium Chloride) 100 mls @ 100 mls/ hr IVPB Q6 [facility] Last Admin: 11/21/16 10:54 Dose: 100 mls/hr Vancomycin HCl 1 gm/ Sodium (Chloride) 250 mls @ 166.667 mls/hr IVPB Q12 [facility] Last Admin: 11/21/16 11:49 Dose: 166.667 mls/hr Insulin Human Regular (Humulin R) 0 units SC ACHS JELENA PRN Reason: Protocol Last Admin: 11/21/16 11:53 Dose: 2 u Lisinopril (Zestril) 10 mg PO DAILY [facility] Last Admin: 11/21/16 08:41 Dose: 10 mg Metformin HCl (Glucophage) 1,000 mg PO BIDWM [facility] Last Admin: 11/21/16 08:41 Dose: 1,000 mg Oxycodone/Acetaminophen (Percocet 5/325 Mg Tab) 1 tab PO Q4 PRN PRN Reason: Pain, moderate (4-7) Stop: 11/23/16 08:57 Oxycodone/Acetaminophen (Percocet 5/325 Mg Tab) 2 tab PO Q4 PRN PRN Reason: Pain, severe (8-10) Stop: 11/23/16 08:57 Sitagliptin Phosphate (Januvia) 100 mg PO DAILY JELE[facility] Last Admin: 11/21/16 08:41 Dose: 100 mg - Labs Labs: 11/21/16 06:10 11/21/16 06:10 Assessment and Plan (1) Amputated toe Status: Acute (2) Diabetic foot infection Status: Acute (3) Osteomyelitis of foot Status: Acute (4) Essential (primary) hypertension Status: Chronic (5) Non-insulin dependent type 2 diabetes mellitus Status: Chronic
== END 2016-11-21 14:45 | disposition home or self-care (01) | DRG 478 ==
LOC: H.ER 11:33 → H.ERHOLD 14:03 → H.MEDSURG1 17:15
PROVIDERS: ADMIT Family Medicine Geriatric Medicine; ATTEND Family Medicine Geriatric Medicine
PROC: 0QBN0ZX Excision of Right Metatarsal, Open Approach, Diagnostic (ICD-10-PCS; principal; 2016-11-15 07:45)
PROC: 0HQMXZZ Repair Right Foot Skin, External Approach (ICD-10-PCS; 2016-11-20)
DX: T87.43 Infection of amputation stump, right lower extremity (principal); M86.171 Other acute osteomyelitis, right ankle and foot; L02.611 Cutaneous abscess of right foot; D61.818 Other pancytopenia; E11.621 Type 2 diabetes mellitus with foot ulcer; E11.628 Type 2 diabetes mellitus with other skin complications; E11.65 Type 2 diabetes mellitus with hyperglycemia; D69.6 Thrombocytopenia, unspecified; L97.519 Non-pressure chronic ulcer of other part of right foot with unspecified severity; B95.7 Other staphylococcus as the cause of diseases classified elsewhere; I10 Essential (primary) hypertension; Z89.411 Acquired absence of right great toe; Z79.84 Long term (current) use of oral hypoglycemic drugs

== ENCOUNTER 2017-10-25 09:39 | Emergency (ER) | payer BC ==
[2017-10-25 09:39] VITALS: BMI 29.8
[2017-10-25] MEDS ORDERED: Labetalol 5 mg/ml Inj 20ML IVP ONE (10:17)
[2017-10-25] MEDS ORDERED: Sodium Chloride 0.9% 1,000 ML IV SCH (10:30)
[2017-10-25 10:35] LABS: BASO % 0.7 % (0.0-2.0); EOS # 0.2 K/uL (0.0-0.7); HEMOGLOBIN 13.3 g/dL (12.0-18.0); LYMPH # 1.1 K/uL (1.0-4.3); LYMPH % 16.6 % (20.0-40.0); MEAN CELL VOLUME 81.3 fl (80.0-94.0); MEAN CORPUSCULAR HEMOGLOBIN 26.7 pg (27.0-31.0); MEAN CORPUSCULAR HGB CONC 32.8 g/dL (33.0-37.0); MEAN PLATELET VOLUME 12.5 fl (7.2-11.7); MONO # 0.4 K/uL (0.0-0.8); MONO % 6.2 % (0.0-10.0); NEUT # 4.8 K/uL (1.8-7.0); NEUT % 73.5 % (50.0-75.0); RED CELL DISTRIBUTION WIDTH 13.7 % (11.5-14.5); WHITE BLOOD COUNT 6.5 K/uL (4.8-10.8)
[2017-10-25 10:38] LABS: ALB/GLOB RATIO 1.2 (1.0-2.1); ALBUMIN 3.9 g/dL (3.5-5.0); ALT/SGPT 37 U/L (21-72); AST/SGOT 21 U/L (17-59); BLOOD UREA NITROGEN 22 mg/dl (9-20); CALCIUM 9.1 mg/dL (8.4-10.2); GFR AFRICAN-AMERICAN > 60; GFR NON-AFRICAN AMERICAN > 60
[2017-10-25 11:10] VITALS: O2SAT 99
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
--- NOTE | 2017-10-25 11:36 | RAD ---
HISTORY: r/o cardiomeg COMPARISON: Chest radiograph dated 11/14/2016 TECHNIQUE: Chest PA and lateral FINDINGS: LUNGS: No active pulmonary disease. PLEURA: No significant pleural effusion identified. No pneumothorax apparent. CARDIOVASCULAR: Cardiomediastinal silhouette within normal limits. OSSEOUS STRUCTURES: No significant abnormalities. VISUALIZED UPPER ABDOMEN: Normal. OTHER FINDINGS: None. IMPRESSION: No active disease.
[2017-10-25 11:37] LABS: URINE BACTERIA RARE (<OCC); URINE BILIRUBIN NEGATIVE (NEGATIVE); URINE BLOOD SMALL (NEGATIVE); URINE CLARITY CLEAR (Clear); URINE COLOR YELLOW (YELLOW); URINE GLUCOSE (UA) >=500 mg/dL (Normal); URINE LEUKOCYTE ESTERASE NEG Leu/uL (Negative); URINE PROTEIN 100 mg/dL (NEGATIVE); URINE UROBILINOGEN 0.2-1.0 mg/dL (0.2-1.0)
[2017-10-25] MEDS ORDERED: Insulin Regular 100 units/ml SC STA (11:55)
[2017-10-25] MEDS ORDERED: Insulin Regular 100 units/ml ONE (13:14)
[2017-10-25 13:35] LABS: B-TYPE NATRIURETIC PEPTIDE 122 pg/ml (0-450)
--- NOTE | 2017-10-25 14:24 | ED PDOC ---
HPI: General Adult Time Seen by Provider: 10/25/17 09:54 Chief Complaint (Nursing): Weakness/Neurological Deficit Chief Complaint (Provider): Hyperglycemia History Per: Patient, EMS, [employer] History/Exam Limitations: language barrier Onset/Duration Of Symptoms: Hrs (1) Have you had recent travel within the past 21 days to any of the following countries: [place], [place], [place] or [place]?: No Current Symptoms Are (Timing): Still Present Severity: Moderate Additional Complaint(s): Pt presents to the ED after experiencing lightheadedness and dizziness at work and discovering a blood sugar level in the 60s; EMS was called and treated his sugar level with oral glucose and upon presentation his glucose level was 475 with a blood pressure of 197/98; pt is a diabetic on glycemic control medication and indicates that his blood sugar is normally controlled, though he offers no known a1C value to his history. Pt also complains of vomiting, nausea from several hours through to presentment but denies fever, diarrhea or other complaints, inlcuding urinary complaints or back pain. Past Medical History Vital Signs: Last Vital Signs Temp 97.9 F 10/25/17 09:43 Pulse 56 L 10/25/17 13:14 Resp 20 10/25/17 11:05 BP 142/81 10/25/17 14:05 Pulse Ox 99 10/25/17 14:50 - Medical History PMH: Diabetes Denies: Chronic Kidney Disease - Family History Family History: States: Unknown Family Hx - Home Medications Home Medications: Ambulatory Orders Medication Instructions Recorded Cyanocobalamin [Vitamin B12 1000 1 tab PO DAILY 10/16/16 mcg Tab] Sitagliptin Phos/Metformin HCl 1 tab PO BID 10/16/16 [Janumet 50-1,000 mg Tablet] Atorvastatin [Lipitor] 20 mg PO DAILY #30 tab 10/22/16 Ciprofloxacin [Cipro] 500 mg PO Q12H #70 tab 11/21/16 Lisinopril [Zestril] 10 mg PO DAILY #30 tab 11/21/16 Unobtainable 11/21/16 - Allergies Allergies/Adverse Reactions: Allergies Allergy/AdvReac Type Severity Reaction Status Date / Time No Known Allergies Allergy Verified 11/14/16 11:53 Review of Systems ROS Statement: Except As Marked, All Systems Reviewed And Found Negative Gastrointestinal: Positive for: Nausea, Vomiting Neurological: Positive for: Weakness, Dizziness Physical Exam - Reviewed Nursing Documentation Reviewed: Yes Vital Signs Reviewed: No - Physical Exam Appears: Positive for: Uncomfortable Head Exam: Positive for: ATRAUMATIC, NORMAL INSPECTION, NORMOCEPHALIC Skin: Positive for: Normal Color, Warm, Dry. Negative for: Diaphoresis, Rash Eye Exam: Positive for: Normal appearance, EOMI. Negative for: Nystagmus Neck: Positive for: Normal, Painless ROM, Supple. Negative for: Decreased ROM Cardiovascular/Chest: Positive for: Regular Rate, Rhythm. Negative for: Edema, Gallop, Bradycardia, Tachycardia, Friction Rub Respiratory: Positive for: Normal Breath Sounds. Negative for: Accessory Muscle Use, Crackles, Rales, Rhonchi, Stridor, Wheezing, Respiratory Distress Pulses-Carotid (L): 2+ Pulses-Carotid (R): 2+ Pulses-Radial (L): 2+ Pulses-Radial (R): 2+ Gastrointestinal/Abdominal: Positive for: Normal Exam, Bowel Sounds (normal in all four quadrants; no peritoneal signs; no rebound tenderness or guarding), Soft. Negative for: Tenderness, Distended, Guarding, Rebound, Asicites - Laboratory Results Result Diagrams: 10/25/17 10:21 10/25/17 10:21 - ECG O2 Sat by Pulse Oximetry: 99 Medical Decision Making Medical Decision Making: HTN Hyperglycemia pt treated with IV fluids and 8 units of insulin for hyperglycemia pt treated with IV labatalol 10mg for hypertension Pt has clinically responded, and bp has returned to normal Sugar level at 306 when pt requested discharge Pt advised as to the serious nature of his symptoms and the desire to admit him for further evaluation and treatment. Pt refused this and indicated that his personal respnsibilities prevented a stay in the hospital. Pt signed an AMA form and assured the staff that he will follow up in the morning with his PMD or return to the ED if his symptoms return or worsen Disposition - Clinical Impression Clinical Impression: Hyperglycemia, Hypertension - Patient ED Disposition Is Patient to be Admitted: Yes Doctor Will See Patient In The: Office - Disposition Referrals: [facility] [Outside] Disposition: Against Medical Advice Disposition Time: 14:22 Condition: STABLE Instructions: Hyperglycemia, Adult (DC), Malignant Hypertension (DC), Blood Glucose Test, Diabetes and Diet Forms: [employer] (Ecuadorean), [employer] (Burkinan) Print Language: ANDORRAN
--- NOTE | 2017-10-25 18:41 | CARD ---
APPROVED REPORT EKG Measurement Heart [id number] <Conclusion> Normal sinus rhythm Possible Left atrial enlargement Borderline ECG
[2017-10-25 19:08] VITALS: BP 140/82; PULSE 76; RESP 18; TEMP 98
== END 2017-10-25 14:30 | disposition home or self-care (01) ==
LOC: H.ER 09:39
DX: E11.65 Type 2 diabetes mellitus with hyperglycemia (principal); I10 Essential (primary) hypertension
CPT/HCPCS: 70450; 71046; 80053; 81003; 82948; 83880; 84484; 85025; 93005; 96374; 96375; 99285; J2765; J7040